=== PATIENT | female | born 1985 | race Caucasian/White ===

== ENCOUNTER → 2017-12-05 09:06 | Outpatient (CLI) | payer OTHER, SELFPAY ==
--- NOTE | 2017-12-05 09:09 | US_ITS ---
STUDY: ABDOMINAL ULTRASOUND - RIGHT UPPER QUADRANT REASON FOR VISIT: Female, 32 years old. Right upper quadrant pain. Nausea. TECHNIQUE: Ultrasound evaluation of the right upper quadrant was performed with real-time and static vega-scale imaging. TECHNICAL QUALITY: Adequate. COMPARISON: None. FINDINGS: Liver: The liver measures 12.6 cm. There is normal echogenicity of the liver. The bile ducts are within normal limits. There is hepatic color flow. The direction of portal flow is hepatopetal. There is no demonstrated mass lesion. Gallbladder: Normal distended gallbladder. The gallbladder wall measures 3.0 mm. There is a negative sonographic Rehman's sign. There is no pericholecystic fluid. There are no gallstones. Common Bile Duct (C.B.D.): The common bile duct measures 3.0 mm. Pancreas: Normal size of the head, body and tail of the pancreas. There is normal echogenicity of the pancreas. There is no demonstrated pancreatic mass or cyst. Right Kidney: Normal size of the right kidney. The right kidney measures 12.3 cm x 5.0 cm x 4.6 cm. Normal renal cortex. The right cortex measures 1.1 cm. There is no demonstrated renal mass or cyst. Mild dilatation of right renal pelvis. There is a 7 mm x 6 mm nonobstructive stone in the lower pole of the right kidney. US/Abdomen Limited IMPRESSION: Dilatation of the right renal pelvis. Nonobstructive right intrarenal renal calculus. Electronically Signed: Torsten Vergara MD at 10:52 EST Tel [phone], Service support ,
== END ==
PROVIDERS: Family Provider Family Medicine; PCP Family Medicine; Visit Provider Family Medicine
DX: K81.9 Cholecystitis, unspecified (principal)
CPT/HCPCS: 76705

== ENCOUNTER → 2017-12-09 15:58 | Outpatient (CLI) | payer OTHER, SELFPAY ==
--- NOTE | 2017-12-09 16:01 | RAD_ITS ---
STUDY: X-RAY - ABDOMEN/PELVIS REASON FOR EXAM: Female, 32 years old. Right-sided kidney stone follow-up TECHNIQUE: Two AP supine views of the abdomen and pelvis. COMPARISON: 11/19/2017 FINDINGS: Normal visualized lung bases. There is a moderate amount of colonic fecal material. There is no demonstrated free abdominal air. Stable appearance of a small calcific density in the lower pole right renal shadow. Normal soft tissue structures. Normal visualized osseous structures. RAD/Abdomen Single View IMPRESSION: Constipation. Unchanged small calcific density in the lower pole of the right renal shadow. Electronically Signed: John Paul Lopez DO at 16:40 EST Tel , Service support ,
== END ==
PROVIDERS: Family Provider Family Medicine; PCP Family Medicine; Visit Provider Urology
DX: N20.0 Calculus of kidney (principal)
CPT/HCPCS: 74018

== ENCOUNTER → 2017-12-24 16:42 | Outpatient (CLI) | payer OTHER, SELFPAY ==
--- NOTE | 2017-12-24 16:45 | CT_ITS ---
STUDY: CT ABDOMEN AND PELVIS WITHOUT CONTRAST REASON FOR EXAM: Female, 32 years old. Abdominal pain RADIATION DOSAGE (If Supplied By Facility): CTDIvol = ( 8.51 ) mGy, DLP = ( 416.93 ) mGycm TECHNIQUE: Transaxial images were obtained from the dome of the diaphragm to the symphysis pubis without oral contrast, and without intravenous contrast. Sagittal and coronal images were reconstructed. Individualized dose optimization techniques were used for this CT. COMPARISON: None. FINDINGS: The visualized lung bases are unremarkable. The visualized portions of the heart are within normal limits. Evaluation of the abdominal viscera is limited in the absence of intravenous contrast. Normal liver. Normal gallbladder and extrahepatic biliary system. Normal spleen. Normal pancreas. Normal bilateral adrenal glands. There is a 5 mm calculus within the inferior pole of the right kidney. Normal left kidney. Normal visualized stomach. Normal small intestine. Normal colon. The appendix is visualized and appears normal. Normal abdominal aorta. Normal inferior vena cava. Normal retroperitoneum. Normal urinary bladder. Normal visualized uterus. There is a small umbilical hernia containing fat. Normal osseous structures. CT/Abdomen/Pelvis without Cont IMPRESSION: Nonobstructing right renal calculus. No hydronephrosis. No bowel obstruction. Electronically Signed: Umang Resnediz DO at 15:23 EST Tel , Service support ,
== END ==
PROVIDERS: Family Provider Family Medicine; PCP Family Medicine; Visit Provider Urology
DX: N20.0 Calculus of kidney (principal)
CPT/HCPCS: 74176

== ENCOUNTER → 2018-01-01 15:36 | Outpatient (CLI) | payer OTHER, SELFPAY ==
[2018-01-01 18:37] LABS: Absolute Lymphocyte Count 2.67 X10^3/ul (0.83-4.51); Absolute Neutrophil Count 4.7 X10^3/uL (2.0-7.7); Basophil# 0.02 X10^3/uL; Basophil% 0.2 % (0-1); Eosinophil# 0.11 X10^3/uL; Eosinophils% 1.4 % (0-5); Hematocrit 39.8 % (37-47); Lymphocyte # 2.67 X10^3/ul (4.0); Mean Corp Hgb Conc 32.7 g/gl (32-36); Mean Corpuscular Hgb 28.8 pg (27.0-32.0); Mean Corpuscular Volume 88.1 fL (81-99); Mean Platelet Vol. 9.8 fl (6.2-12.0); Monocyte# 0.61 X10^3/uL; Monocyte% 7.5 % (0-10); Neutrophil # 4.68 X10^3/uL (2.7-7.7); Neutrophil % 57.8 % (47-70); POSITIVE COUNT NO; POSITIVE DIFFERENTIAL NO; POSITIVE MORPHOLOGY NO; Platelet Count 344 K/mm3 (150-450); RBC Distribution Width CV 13.5 % (11.6-14.6); RBC Distribution Width SD 43.6 fl (35.1-43.9); Red Blood Count 4.52 M/mm3 (4.2-5.4); White Blood Count 8.1 K/mm3 (4.4-11.0)
[2018-01-01 18:56] LABS: Erythrocyte Sedimentation Rate 16 mm/hr (0-20)
== END ==
PROVIDERS: Family Provider Family Medicine; PCP Family Medicine; Visit Provider Family Medicine
DX: M89.8X9 Other specified disorders of bone, unspecified site (principal); R53.83 Other fatigue; M25.50 Pain in unspecified joint
CPT/HCPCS: 36415; 85025; 85652; 86038; 86140; 86225; 86235

== ENCOUNTER 2018-01-06 11:24 | Emergency (ER) | payer OTHER, SELFPAY ==
[2018-01-06 11:25] VITALS: BP 145/92; PULSE 72; RESP 16; TEMP 36.8; O2SAT 97; BMI 25.9
--- NOTE | 2018-01-06 12:07 | EKG12_ITS ---
Test Reason : PALPS Blood Pressure : / mmHG Vent. Rate : 060 BPM Atrial Rate : 060 BPM P-R Int : 156 ms QRS Dur : 086 ms QT Int : 428 ms P-R-T Axes : 049 060 046 degrees QTc Int : 428 ms Normal sinus rhythm Normal ECG Confirmed by JM WEIR, CHA ([id number]), field map editor ANDERSON RIGGS ([id number]) on 01/09/2018 2:50:00 PM Referred By: Stella Bustamante Confirmed By:CHA ONEAL MD
--- NOTE | 2018-01-06 12:07 | RAD_ITS ---
STUDY: X-RAY CHEST REASON FOR EXAM: Female, 32 years old. Chest pressure. TECHNIQUE: Single AP portable view of the chest. COMPARISON: None. FINDINGS: EKG electrodes are seen. The lungs are clear and expanded. There is no demonstrated pleural abnormality. Normal size heart. Normal mediastinum and renzo. Normal visualized pulmonary arteries. Normal visualized aortic arch and descending thoracic aorta. Normal visualized thoracic spine. Normal visualized ribs, clavicles, and shoulders. There is no demonstrated abnormality of the visualized soft tissue structures of the upper abdomen. RAD/Chest 1 View (Portable) IMPRESSION: Normal x-ray examination of the chest. Electronically Signed: Torsten Vergara MD at 12:40 EST Tel [phone], Service support ,
[2018-01-06] MEDS: 0.9% Normal Saline 1,000 ML 150 ML IV (12:22)
[2018-01-06] MEDS: Aspirin 81 MG TAB.CHEW 324 MG PO (12:22)
[2018-01-06 12:23] VITALS: O2SAT 97
[2018-01-06 12:30] LABS: Absolute Lymphocyte Count 4.61 X10^3/ul (0.83-4.51); Absolute Neutrophil Count 4.1 X10^3/uL (2.0-7.7); Basophil# 0.02 X10^3/uL; Basophil% 0.2 % (0-1); Hematocrit 39.7 % (37-47); Hemoglobin 13.7 g/dl (12.0-15.0); Lymphocyte # 4.61 X10^3/ul (4.0); Lymphocyte % 47.1 % (19-41); Mean Corp Hgb Conc 34.5 g/gl (32-36); Mean Corpuscular Hgb 29.6 pg (27.0-32.0); Mean Corpuscular Volume 85.7 fL (81-99); Mean Platelet Vol. 9.3 fl (6.2-12.0); Monocyte# 0.98 X10^3/uL; Neutrophil # 4.05 X10^3/uL (2.7-7.7); Neutrophil % 41.4 % (47-70); Platelet Count 381 K/mm3 (150-450); RBC Distribution Width CV 13.4 % (11.6-14.6); RBC Distribution Width SD 41.6 fl (35.1-43.9); Red Blood Count 4.63 M/mm3 (4.2-5.4); White Blood Count 9.8 K/mm3 (4.4-11.0)
[2018-01-06 12:35] LABS: POSITIVE COUNT NO; POSITIVE DIFFERENTIAL NO; POSITIVE MORPHOLOGY NO
--- NOTE | 2018-01-06 12:49 | ED.VISSUMM ---
- ER Visit Summary Date of Service: 01/06/18 Chief Complaint: [] generalized fatigue weakness bradycardia, intermittent right upper quadrant pain History of Present Illness: The patient is a 32 F [] reports that today she was in a store where she suffered generalized fatigue causing her to basically placed herself on the floor, her heart rate at that time was about 99, she indicates that she recently had a heart rate was in the 40s. She also reports that for a month or 2 she has had symptoms of generalized fatigue body aches and prior outpatient workup with her physician showed no clear definitive diagnosis, she did have her ultrasound of the right upper quadrant that showed normal study, her right upper quadrant pain seems worse after she eats, she was referred for HIDA scan, but because she had an 8-month-old baby she is breast-feeding she did not obtain a HIDA scan but called the surgeon for an appointment has not had that appointment yet A single he reports she came in today because earlier today heart rate was in the 40s when she was in the store and she became weak heart rate was in the 90s and she had again a sudden onset of generalized whole body fatigue not having any chest pain fever cough abdominal pain and or paresthesias the pain to the right upper quadrant is chronic she has had normal bowel bladder habits no fever Has no history of [place] PE DVT arthritis kidney or liver problems her bowel bladder habits unremarkable she does not believe she is Physical Examination: [] Resting comfortably in the bed her blood pressure is 130/80 heart rate 80 she is afebrile HEENT exam neck exam normal lungs are clear heart tones are normal the abdomen soft nontender upper lower extremities unremarkable she is moving all 4 extremities her back is unremarkable she has no pain to her right upper quadrant now she denies chest pain or shortness of breath Test Results: [] Emergency Department Course and Treatment: [] Patient's been having intermittent paroxysms of fatigue with body pains and aches intermittent right upper quadrant pain we will obtain screening labs, discussed the case with her physicians Spoke with her physician discussed the case in detail her labs d-dimer EKG CT abdomen showed nothing acute thyroid studies were negative sinus rhythm heart rate about 70 throughout her stay here and I explained the case with her in detail and her , we have coordinated care with her family physician, follow-up with them for further management options rest and return for change in symptoms Treatment Plan: [] Disposition: [] Home stable Impression: [] Intermittent paroxysms of generalized fatigue etiology unclear few months, reported bradycardia and tachycardia This note was generated with VR1 dictation software. It may contain incorrect words, spelling, and punctuation that were not noted in review of the chart prior to signing ED Disposition - Plan for ED Patient: Chief Complaint: Palpitations Referrals: Stella Bustamante DO [Primary Care Provider] -
[2018-01-06 12:50] LABS: Anion Gap 10 (5-15); BUN 21 mg/dL (7-18); BUN/Creat Ratio 29.9 RATIO (10-20); Calcium,Total 9.4 mg/dL (8.5-10.1); Chloride 104 mmol/L (98-107); EST Glomerular Filtration Rate 102 mL/min (>60); Est Glom Filt Rate - Afr Amer 123 mL/min (>60); Estimated Creatinine Clearance 111.16 ml/min; Glucose 87 mg/dL (74-106); Potassium 3.1 mmol/L (3.5-5.1); Sodium Level 138 mmol/L (136-145)
--- NOTE | 2018-01-06 12:52 | ED.DCSUM_ITS ---
- ER Visit Summary Date of Service: 01/06/18 Chief Complaint: [] generalized fatigue weakness bradycardia, intermittent right upper quadrant pain History of Present Illness: The patient is a 32 F [] reports that today she was in a store where she suffered generalized fatigue causing her to basically placed herself on the floor, her heart rate at that time was about 99, she indicates that she recently had a heart rate was in the 40s. She also reports that for a month or 2 she has had symptoms of generalized fatigue body aches and prior outpatient workup with her physician showed no clear definitive diagnosis, she did have her ultrasound of the right upper quadrant that showed normal study, her right upper quadrant pain seems worse after she eats, she was referred for HIDA scan, but because she had an 8-month-old baby she is breast- feeding she did not obtain a HIDA scan but called the surgeon for an appointment has not had that appointment yet A single he reports she came in today because earlier today heart rate was in the 40s when she was in the store and she became weak heart rate was in the 90s and she had again a sudden onset of generalized whole body fatigue not having any chest pain fever cough abdominal pain and or paresthesias the pain to the right upper quadrant is chronic she has had normal bowel bladder habits no fever Has no history of [place] PE DVT arthritis kidney or liver problems her bowel bladder habits unremarkable she does not believe she is Physical Examination: [] Resting comfortably in the bed her blood pressure is 130/80 heart rate 80 she is afebrile HEENT exam neck exam normal lungs are clear heart tones are normal the abdomen soft nontender upper lower extremities unremarkable she is moving all 4 extremities her back is unremarkable she has no pain to her right upper quadrant now she denies chest pain or shortness of breath Test Results: [] Emergency Department Course and Treatment: [] Patient's been having intermittent paroxysms of fatigue with body pains and aches intermittent right upper quadrant pain we will obtain screening labs, discussed the case with her physicians Spoke with her physician discussed the case in detail her labs d-dimer EKG CT abdomen showed nothing acute thyroid studies were negative sinus rhythm heart rate about 70 throughout her stay here and I explained the case with her in detail and her , we have coordinated care with her family physician, follow-up with them for further management options rest and return for change in symptoms Treatment Plan: [] Disposition: [] Home stable Impression: [] Intermittent paroxysms of generalized fatigue etiology unclear few months, reported bradycardia and tachycardia This note was generated with Güven[employer] dictation software. It may contain incorrect words, spelling, and punctuation that were not noted in review of the chart prior to signing ED Disposition - Plan for ED Patient: Chief Complaint: Palpitations Referrals: Stella Bustamante DO [Primary Care Provider] -
[2018-01-06 13:02] LABS: AST(SGOT) 9 U/L (15-37); Alanine Aminotransfer ALT/SGPT 17 U/L (13-56); Albumin, Serum 3.9 g/dL (3.2-5.0); Alkaline Phosphatase 76 U/L (45-117); Bilirubin, Direct 0.09 mg/dL (0.00-0.30); Globulin 3.6 g/dL (2.2-4.2); Protein, Total 7.5 g/dL (6.4-8.2)
[2018-01-06 13:08] LABS: Pregnancy, Serum, hCG Quali. NEGATIVE Negative (0-9 Nonpreg)
[2018-01-06 13:09] LABS: Lipase 89 U/L (73-393); T4 Free Direct 1.24 ng/dL (0.76-1.46)
[2018-01-06 13:11] LABS: D-Dimer Quantitative (DVT/PE) < 0.27 FEU/ug/m (0.27-0.49)
[2018-01-06 13:30] VITALS: BP 119/66; PULSE 66; RESP 16; O2SAT 99
[2018-01-06 13:55] LABS: Mucous, Urine 0 SEEN /hpf (<or=2+); Red Blood Cells-Urine 0 SEEN /hpf (0-5); Squamous Epithelial Cells - UA 0 SEEN /hpf (5-10); White Blood Cells 0 SEEN /hpf (0-5)
[2018-01-06 14:01] LABS: Color, Urine Yellow (Yellow); Glucose, Dipstick Normal (Normal); Ketone-Dipstick Negative (Negative); Leukocyte Esterase-Dipstick Negative /ul (Negative); Nitrite-Dipstick Negative (Negative); Occult Blood-Urine 10 /ul (Negative); Protein-Dipstick Negative (Negative); Urine Bilirubin Dipstick Negative (Negative); Urine Clarity Clear (Clear); Urine Urobilinogen Normal (Normal)
[2018-01-06 14:08] LABS: Bacteria RARE /hpf (None Seen)
--- NOTE | 2018-01-06 14:10 | CT_ITS ---
STUDY: CT ABDOMEN AND PELVIS WITHOUT CONTRAST REASON FOR EXAM: Female, 32 years old. Right sided abdominal pain. Weakness and palpitations. RADIATION DOSAGE (If Supplied By Facility): CTDIvol = ( 8.88 ) mGy, DLP = ( 439.13 ) mGycm TECHNIQUE: Transaxial images were obtained from the dome of the diaphragm to the symphysis pubis without oral contrast, and without intravenous contrast. Sagittal and coronal images were reconstructed. Individualized dose optimization techniques were used for this CT. COMPARISON: Comparison is made with prior examination dated December 24, 2017. FINDINGS: The visualized lung bases are unremarkable. The visualized portions of the heart are within normal limits. Normal liver. Normal gallbladder and extrahepatic biliary system. Normal spleen. Normal pancreas. Normal bilateral adrenal glands. There is a 4.2 mm calculus in the lower pole calyx of the right kidney. This is unchanged. Normal left kidney. Normal visualized stomach. Normal small intestine. Normal colon. The appendix is visualized and appears normal. Normal abdominal aorta. Normal inferior vena cava. Normal retroperitoneum. Normal urinary bladder. There is a small umbilical hernia containing fat. Normal osseous structures. CT/Abdomen/Pelvis without Cont IMPRESSION: Stable nonobstructive right intrarenal calculus. Electronically Signed: Torsten Vergara MD at 14:49 EST Tel [phone], Service support ,
[2018-01-06 15:23] VITALS: BP 114/65; PULSE 64; RESP 14; O2SAT 97
--- NOTE | 2018-01-06 16:17 | ED.DEP ---
ED Disposition - Plan for ED Patient: Chief Complaint: Palpitations Instructions: ED Palpitations, ED Weakness [facility] Referrals: Stella Bustamante DO [Primary Care Provider] -
[2018-01-06 16:29] VITALS: BP 108/57; PULSE 80; RESP 17; O2SAT 95
== END 2018-01-06 16:30 | disposition home or self-care (01) ==
PROVIDERS: Emergency Provider Emergency Medicine; Family Provider Family Medicine; PCP Family Medicine
DX: R53.83 Other fatigue (principal); R00.1 Bradycardia, unspecified; R00.0 Tachycardia, unspecified; R00.2 Palpitations; R10.11 Right upper quadrant pain; G89.29 Other chronic pain; M79.1 Myalgia
CPT/HCPCS: 71045; 74176; 80048; 80076; 81001; 83690; 84436; 84439; 84443; 84484; 84703; 85025; 85379; 93005; 96360; 96361; 99284; J7030; A4216

== ENCOUNTER → 2018-01-13 16:14 | Outpatient (CLI) | payer OTHER, SELFPAY ==
[2018-01-16 16:11] LABS: Anti-Centromere B Ab <0.2 AI (0.0-0.9); Anti-Chromatin <0.2 AI (0.0-0.9); Anti-Jo <0.2 AI (0.0-0.9); Anti-Scleroderma-70 AB <0.2 AI (0.0-0.9); RNP Ab <0.2 AI (0.0-0.9); SJOGREN'S Anti-SS-A test 0.3 AI (0.0-0.9); SJOGREN'S Anti-SS-B test < 0.2 AI (0.0-0.9); Smith Ab <0.2 AI (0.0-0.9)
[2018-01-18 06:17] LABS: Anti-dsDNA Ab <1 IU/mL (0-9)
== END ==
PROVIDERS: Family Provider Family Medicine; PCP Family Medicine; Visit Provider Family Medicine
DX: M79.1 Myalgia (principal); M25.50 Pain in unspecified joint; R76.8 Other specified abnormal immunological findings in serum
CPT/HCPCS: 36415; 86225; 86235

== ENCOUNTER → 2018-01-19 11:15 | Outpatient (CLI) | payer OTHER, SELFPAY ==
--- NOTE | 2018-01-19 11:18 | NM_ITS ---
CLINICAL: 32-year-old female with reported history of right upper quadrant abdominal pain. RADIONUCLIDE HEPATOBILIARY SCINTIGRAPHY COMPARISON: CT of the abdomen-pelvis report 01/06/2018 FINDINGS: Following the intravenous administration of 5.7 mCi of 99m Tc Mebrofenin, hepatobiliary images reveal: 1. Relatively prompt and homogeneous radiopharmaceutical concentration is noted by a normal sized liver. No parenchymal defects are identified. 2. Gallbladder activity is identified at 10 minutes post radiopharmaceutical administration. 3. Small intestinal tract is observed at 15 minutes following tracer injection. 4. Washout of the radiopharmaceutical by the hepatic parenchyma appears qualitatively normal. The patient was administered a fatty meal (8 ounces BOOST-30 grams fat). The post fatty meal consumption gallbladder ejection fraction calculated at 60 minutes was noted to be 34.0 % (normal greater than 30%). NM/Hepatobilliary Imaging IMPRESSION: 1. NORMAL 99m Tc Mebrofenin hepatobiliary imaging examination with fatty meal ingestion. A. A gallbladder ejection fraction calculated to be greater than 30% following the administration of a consumed fatty meal makes the probability of functional hepatobiliary disease (gallbladder and/or sphincter of Oddi dyskinesia) and/or organic hepatobiliary disease (chronic acalculous cholecystitis and/or cystic duct syndrome) to be low. ([employer] and [employer], J Nucl Med 43: 1603, 2002). Electronically Signed: Marko Broussard DO at 12:16 EDT Tel , Service support ,
== END ==
PROVIDERS: Family Provider Family Medicine; PCP Family Medicine; Visit Provider Family Medicine
DX: K81.9 Cholecystitis, unspecified (principal); R00.2 Palpitations
CPT/HCPCS: 78226; 78227; 93225; 93226; A9537

== ENCOUNTER → 2018-02-16 14:59 | Outpatient (CLI) | payer OTHER, SELFPAY ==
[2018-02-16 15:10] LABS: Bacteria 0 SEEN /hpf (None Seen); Mucous, Urine 0 SEEN /hpf (<or=2+)
[2018-02-16 17:09] LABS: Color, Urine Yellow (Yellow); Glucose, Dipstick Normal (Normal); Ketone-Dipstick 50 mg/dl (Negative); Leukocyte Esterase-Dipstick 25 /ul (Negative); Nitrite-Dipstick Negative (Negative); Occult Blood-Urine 25 /ul (Negative); Protein-Dipstick Negative (Negative); Specific Gravity, Urine 1.015 (1.002-1.030); Urine Bilirubin Dipstick Negative (Negative); Urine Clarity Clear (Clear); Urine Urobilinogen Normal (Normal)
[2018-02-16 17:48] LABS: Red Blood Cells-Urine 0-5 SEEN /hpf (0-5); Squamous Epithelial Cells - UA 5-10 SEEN /hpf (5-10); White Blood Cells 0-5 SEEN /hpf (0-5)
== END ==
PROVIDERS: Family Provider Family Medicine; PCP Family Medicine; Visit Provider Surgery
DX: R10.9 Unspecified abdominal pain (principal)
CPT/HCPCS: 81001

== ENCOUNTER → 2018-02-17 16:56 | Outpatient (CLI) | payer OTHER, SELFPAY ==
--- NOTE | 2018-02-17 17:02 | RAD_ITS ---
STUDY: X-RAY - ABDOMEN/PELVIS REASON FOR EXAM: Female, 33 years old. Pain. Right renal stone. TECHNIQUE: Two AP supine views of the abdomen and pelvis. COMPARISON: CT January 06, 2018 FINDINGS: Normal visualized lung bases. There is an unremarkable bowel gas pattern. There is no demonstrated free abdominal air. There is increased density at the right lower kidney with stone versus artifact from stool contents . Normal soft tissue structures. Normal visualized osseous structures. RAD/Abdomen Single View IMPRESSION: Right abdominal calcification. Electronically Signed: Alejandro Devries MD at 16:58 EDT , Service support ,
== END ==
PROVIDERS: Family Provider Family Medicine; PCP Family Medicine; Visit Provider Nurse Practitioner Adult Health
DX: N20.0 Calculus of kidney (principal)
CPT/HCPCS: 74018

== ENCOUNTER 2018-02-20 05:43 | Day surgery (SDC) | payer OTHER, SELFPAY ==
[2018-02-20] VITALS (10 sets, daily range): BP systolic 80–111; BP diastolic 40–86; PULSE 69–104; RESP 16–18; TEMP 36.2–36.6; O2SAT 94–100
--- NOTE | 2018-02-20 | IMM_PTH ---
PATIENT: DELLA HERMAN LOC: EN U#:[id number] AGE/SX: 33/F ROOM: RE02/20/[address]: Dr. Dereje Fuller MD : 1985 BED: DIS: 02/20/2018 SPEC #: [id number] RECD: 02/23/18 11:26 STATUS: SURY LIAM #: [id number] DARIUSZ: 02/20/18 00:[address]: Dereje Fuller DEPT: IMMUNOHISTOCHEMISTRY RECD BY: Tarsha Bunn ENTERED: 02/23/18 11:27 SP TYPE: IMMUNO OTHR DR: Dr. Stella Bustamante DO Tissues: B - Stomach, NOS Procedures: H Pylori (initial) PHYSICIAN & INSTITUTION [place] [id number] SPECIMEN INFORMATION: Tissue Source: B ? Antrum biopsy Clinical Info: Right increased abdomen pain, biliary dyskinesia Specimen Number: [id number] CPT code: 03864 METHODOLOGY: Deparaffinized sections of prefer/formalin-fixed tissue or PAP/DQ stained slides are incubated with monoclonal/polyclonal antibodies/oligonucleotide probes. Localization is made via biotin free immunoperoxidase method. Appropriate controls are performed and reacted as expected. Results on target cell population are indicated in the following table: RESULTS: ANTIBODY / CLONE RESULT Block B H Pylori (polyclonal) negative These tests were developed and their performance characteristics determined by [facility]. They may not have been cleared or approved by the U.S. Food and Drug Administration. The FDA has determined that such clearance or approval is not necessary. INTERPRETATION: B. Antrum, biopsy: Negative for Helicobacter pylori organisms. AM:enrique 02/24/18
--- NOTE | 2018-02-20 06:40 | EGD_PTH ---
PATIENT: DELLA HERMAN LOC: EN U#:[id number] AGE/SX: 33/F ROOM: RE02/20/[address]: Dr. Dereje Fuller MD : 1985 BED: DIS: 02/20/2018 SPEC #: [id number] RECD: 02/20/18 14:31 STATUS: SURY LIAM #: [id number] DARIUSZ: 02/20/18 06:[address]: Dereje Fuller DEPT: SURGICAL PATHOLOGY RECD BY: Giovanny Boo ENTERED: 02/20/18 14:31 SP TYPE: EGD BIOPSY IMANI DR: Dr. Stella Bustamante DO Tissues: A - Duodenum, NOS B - Gastric mucous membrane C - Esophageal mucous membrane Procedures: Surgery Specimen Level IV HEADER OPERATION: EGD PRE-OP DIAGNOSIS: Right increased abdomen pain, biliary dyskinesia TISSUE SUBMITTED: A ? Duodenum biopsy, B ? Antrum biopsy for H. pylori and path, C ? Distal esophagus biopsy MICROSCOPIC DIAGNOSIS A. Duodenum, biopsy: No significant pathologic change. B. Gastric antrum, biopsy: Mild chronic gastritis. C. Distal esophagus, biopsy: Consistent with reflux esophagitis. Gastroesophageal junctional mucosa with mild to moderate chronic inflammation. AM:enrique 02/23/18 COMMENT The results of immunohistochemistry for Helicobacter pylori will be reported separately ([id number]). MICROSCOPIC DESCRIPTION Slides are reviewed. GROSS DESCRIPTION A - Received in fixative is one container labeled with the patient's name and designated duodenum biopsy. The specimen consists of one irregular fragment of light [place] soft tissue that measures 0.7 x 0.2 x 0.1 cm. The specimen is totally submitted in one cassette. B - Received in fixative is one container labeled with the patient's name and designated antrum biopsy. The specimen consists of one irregular fragment of light [place] soft tissue that measures 0.3 x 0.3 x 0.1 cm. The specimen is totally submitted in one cassette. C - Received in fixative is one container labeled with the patient's name and designated distal esophagus biopsy. The specimen consists of multiple irregular fragments of light [place] soft tissue that in aggregate measure 1 x 0.5 x 0.1 cm. The specimen is totally submitted in one cassette. / NGOC:enrique 02/20/18 TC:3 CPT: 28806 x3
--- NOTE | 2018-02-20 06:45 | PCM.OPRPT ---
Problem List (1) Abdominal pain Status: Acute Qualifiers: Abdominal location: epigastric Qualified Code(s): R10.13 - Epigastric pain Report of Operation Date of Procedure: 02/20/18 Pre-Operative Diagnosis: Right upper quadrant pain Post-Operative Diagnosis: Very small hiatal hernia, minimal antral erythema Surgery/Procedure Performed:: Esophagogastroduodenoscopy with duodenal and antral and distal esophageal biopsies with cold forceps Description of Surgical Findings:: Timeout and informed consent was obtained. 33-year-old female was taken to the endoscopy suite. Her oropharynx was anesthetized Cetacaine. She was placed in a left lateral decubitus position throughout. Throughout the procedure she received total 100 mg Demerol and 3.5 mg of Versed is intravenous sedation. Videogastroscope was inserted into the esophageal inlet. Proximal mid distal esophagus inspected unremarkable. EG junction was at 40 cm. Very small hiatal hernia noted. No evidence for overt esophageal irritation. The scope was advanced in the stomach where there was very minimal erythema of the antrum. The scope was advanced through the pylorus and the first and second portions of the duodenum were inspected. This appeared to be normal. There was bile within the duodenum. I did not see any bile within the stomach. A duodenal biopsy was obtained of the bulb. Scope was withdrawn to the antrum and an antral biopsy was obtained. The scope was retroflexed the cardia inspected the main body of the stomach inspected. This appeared to be unremarkable. Scope was placed back in antegrade viewing position and the greater and lesser curvatures were inspected. Excess fluid and air was aspirated free. The scope was withdrawn to the distal esophagus. Distal esophageal biopsy was obtained. Excess fluid and air was aspirated free the procedure was completed with the patient tolerating it well. Impression Very small minimal hiatal hernia. Minimal erythema of the antrum. Duodenal and antral and distal esophageal biopsies pending. The current examination does not correlate with the patient's complaint of right upper quadrant pain. She will be notified of pathology as a become available but at this time we plan to proceed with the laparoscopic cholecystectomy with tentative diagnosis biliary dyskinesia. Cc: Dr. Stella Bustamante Meds were given at 0634. The procedure was started 0637. Procedure was completed at 0642. Dereje Fuller M.D., F.A.C.S. Type of Anesthesia:: IV Sedation
== END 2018-02-20 07:55 | disposition home or self-care (01) ==
LOC: EN 05:43 → ACINP 05:45
PROVIDERS: Family Provider Family Medicine; PCP Family Medicine; Visit Provider Surgery
PROC: (CPT 43239; principal; 2018-02-20 06:25)
DX: K29.70 Gastritis, unspecified, without bleeding (principal); K20.9 Esophagitis, unspecified; K44.9 Diaphragmatic hernia without obstruction or gangrene; K82.8 Other specified diseases of gallbladder; Z87.442 Personal history of urinary calculi
CPT/HCPCS: 43239; 88305; 88342; J7120

== ENCOUNTER → 2018-02-20 14:15 | Outpatient (CLI) | payer OTHER, SELFPAY ==
[2018-02-20 14:17] LABS: Bacteria 0 SEEN /hpf (None Seen); Mucous, Urine 0 SEEN /hpf (<or=2+); Red Blood Cells-Urine 0 SEEN /hpf (0-5); Squamous Epithelial Cells - UA 0 SEEN /hpf (5-10)
[2018-02-20 14:35] LABS: Color, Urine Yellow (Yellow); Glucose, Dipstick Normal (Normal); Ketone-Dipstick 5 mg/dl (Negative); Leukocyte Esterase-Dipstick 100 /ul (Negative); Nitrite-Dipstick Negative (Negative); Occult Blood-Urine Negative /ul (Negative); Protein-Dipstick Negative (Negative); Specific Gravity, Urine 1.005 (1.002-1.030); Urine Bilirubin Dipstick Negative (Negative); Urine Clarity Clear (Clear); Urine Urobilinogen Normal (Normal)
[2018-02-20 14:57] LABS: White Blood Cells 0-5 SEEN /hpf (0-5)
== END ==
PROVIDERS: Family Provider Family Medicine; PCP Family Medicine; Visit Provider Physician Assistant
DX: N39.0 Urinary tract infection, site not specified (principal)
CPT/HCPCS: 81001; 87086

== ENCOUNTER 2018-02-25 05:33 | Day surgery (SDC) | payer OTHER, SELFPAY ==
[2018-02-25] VITALS (14 sets, daily range): BP systolic 116–134; BP diastolic 65–81; PULSE 72–95; RESP 16–75; TEMP 36.2–37.4; O2SAT 93–100; BMI 25.8
[2018-02-25 05:50] LABS: Internal QC Validated? YES +Cl - CLEAR BKGD; Pregnancy, Urine Negative Negative
[2018-02-25] MEDS: Cefazolin 2 GM in 0.9% Normal Saline 100 ML IV (07:13)
--- NOTE | 2018-02-25 07:15 | GALL_PTH ---
PATIENT: DELLA HERMAN LOC: [facility] U#:[id number] AGE/SX: 33/F ROOM: RE02/25/[address]: Dr. Dereje Fuller MD : 1985 BED: DIS: 02/25/2018 SPEC #: [id number] RECD: 02/25/18 11:48 STATUS: SURY LIAM #: [id number] DARIUSZ: 02/25/18 07:[address]: Dereje Fuller DEPT: SURGICAL PATHOLOGY RECD BY: Tracie Brennan ENTERED: 02/25/18 12:47 SP TYPE: DORIAN DIALLO DR: Dr. Stella Bustamante DO Tissues: Gallbladder, NOS Procedures: Surgery Specimen Level III HEADER OPERATION: Laparoscopic cholecystectomy with intraoperative cholangiogram PRE-OP DIAGNOSIS: Biliary dyskinesia, right upper quadrant abdominal pain TISSUE SUBMITTED: Gallbladder MICROSCOPIC DIAGNOSIS Gallbladder, cholecystectomy: Mild chronic cholecystitis. AM:enrique 02/26/18 MICROSCOPIC DESCRIPTION Slides are reviewed. GROSS DESCRIPTION Received is one container labeled with the patient's name and designated gallbladder. The specimen consists of a gallbladder measuring 8.5 x 2.6 x 2.5 cm. The external surface is smooth and glistening. Focally, it is granular, hemorrhagic and contains cautery artifact. The lumen of the gallbladder contains a moderate amount of greenish-yellow bile. No calculi are identified either in the lumen of the gallbladder or the specimen container. The gallbladder mucosa is bile-stained and free of mass lesions. The gallbladder wall averages 0.1 cm in thickness. Donor Services Manager sections of the gallbladder and the cystic duct are submitted in one cassette. / AM:enrique 02/25/18 TC:3 [facility]: [id number]
--- NOTE | 2018-02-25 07:20 | RAD_ITS ---
CLINICAL HISTORY: Female, 33 years old. Abdomen pain. Comment: Fluoroscopy services provided for clinical procedure. Please refer to operating physician's procedure note for additional detail. PROCEDURE: CHOLANGIOGRAM - Fluoroscopy services provided for clinical procedure. Please refer to operating physician's procedure note for additional detail. FLUOROSCOPY TIME (if supplied): (Not provided) minutes/seconds TECHNIQUE: 33, intraprocedural fluoroscopic spot images of the right upper quadrant. FINDINGS: Opacified intrahepatic and extra hepatic bile ducts appear unremarkable. Specifically, there is no evident filling defect. There is no significant incidental finding. There is no extrabiliary contrast. RAD/Cholangiogram/ O R,Initial IMPRESSION: Unremarkable appearing opacified intrahepatic and extra hepatic bile ducts. No extrabiliary contrast. No significant incidental finding. Comment: Fluoroscopy services provided for clinical procedure. Please refer to operating physician's procedure note for additional detail. Electronically Signed: Harris Haynes MD at 8:47 EDT , Service support ,
--- NOTE | 2018-02-25 07:27 | DCINST_ITS ---
Discharge Diet: Light diet - advance as tolerated - if you have questions about your diet instructions, please talk to you doctor. Discharge Activity: May Not Drive - for 1 week or while taking narcotic pain medicine. May shower in (days): 1 Lifting Restrictions: 10 pounds Call your doctor if your incision/area has: Continuous Slow Oozing, Sudden Increased Bleeding, Increased Pain/ Swelling, Increased Redness, Foul Smelling Discharge Call your doctor if you observe: Fever of 101 or Higher Suture Line Care: Avoid Pulling/Pushing, Avoid Pinching/Bending Additional Dressing/Incision Instructions:: Change or remove dressing in 4 days. Leave steri-strips in place for 1 week. Allergies/Adverse Reactions: Allergies No Known Allergies Allergy (Verified 02/19/18 10:17) Medications to take at Discharge multivitamin tablet 1 tab PO QDAY 02/16/18 ciprofloxacin 500 mg tablet 500 mg PO BID #14 tab 02/19/18 Hydrocodone Bitart/Apap 5-325 [[place] 5MG-325MG] 1 tablet PO Q6H PRN PRN 3 Days # 10 tablet 02/25/18 The following prescriptions were given: Hydrocodone Bitart/Apap 5-325 [[place] 5MG-325MG] 1 tablet PO Q6H PRN PRN 3 Days # 10 tablet PRN Reason: Pain Primary Care Physician: Stella Bustamante DO [Primary Care Provider] - Please Follow Up With: Dereje Fuller MD - [phone] When: Call to make an appointment to be seen in about 10 days.
[2018-02-25] MEDS: Bupivacaine Mpf 0.5% 30 ML VIAL (07:36)
--- NOTE | 2018-02-25 08:27 | OP.PCM_ITS ---
Problem List (1) Biliary dyskinesia Status: Acute (2) Umbilical hernia without obstruction or gangrene Status: Acute Report of Operation Date of Procedure: 02/25/18 Pre-Operative Diagnosis: Biliary dyskinesia Post-Operative Diagnosis: Biliary dyskinesia. Umbilical hernia Surgery/Procedure Performed:: Laparoscopic cholecystectomy with cholangiography. Umbilical herniorrhaphy Description of Surgical Findings:: Timeout and informed consent was obtained. 33-year-old female was taken out from placement table underwent general endotracheal intubation anesthesia. Ancef 2 g given intravenously preoperatively. The abdomen was sterilely prepped and draped. 0.5% Marcaine was used as local anesthetic. Throughout the procedure total 30 cc was used. Skin sites were pre-anesthetized. A vertical incision was made at the umbilicus and so doing an umbilical hernia was encountered with some preperitoneal fatty tissue and eye. This is dissected free. Then holding sutures of 0 Vicryl placed direct access was gained to the peritoneum a 12 m trocar was inserted the absence freed CO2 to pressure of 10 mmHg pressure. Five-minute trochars are placed the epigastric right upper quadrant and right upper abdomen area. Abdomen is rapidly inspected no evidence any superficial abnormalities the gallbladder grossly appeared to be unremarkable gallbladder was distracted blunt dissection with a instituted the infundibulum until clearly the cystic artery and cystic duct were identified the hepatocystic angle was completely dissected free 2 Hem-o- roshan clips were placed proximally on the cystic artery and one distally prior to transecting it Hem-o-roshan clip was placed on the cystic duct incision in the cystic duct cholangiogram catheter was inserted. A valve of Heister prevented advancement and so a grasper was used to hold it in position. Fluoroscopically controlled claims grams were obtained demonstrating normal ductal anatomy and free flow into the small bowel. The cholangiogram catheter was removed 2 Hem-o-roshan clips were placed on the cystic duct prior to transecting it. There was a posterior cystic artery that was secured with a Hem-o-roshan clip. The gallbladder was then dissected free from the liver bed using electrocautery. Complete hemostasis was intact. Gallbladder was placed in retrieval bag the right upper quadrant was irrigated and aspirated free of excess fluid. The gallbladder was exited the umbilicus remaining trochars removed under visualization. The abdomen was allowed to deflate of CO2. The fascia at the umbilicus for the hernia was approximated with an interrupted 0 Nurolon [id number] suture. Skin edges approximated with interrupted 4 Monocryl subdermal stitches. Steri-Strips Telfa and OpSite dressings applied. Sponge instrument and needle counts were reported to the surgeon to be correct. Blood loss was minimal. Specimens gallbladder. Drains none. Blood loss minimal. Dereje Fuller M.D., F.A.C.S. Type of Anesthesia:: General Anesthesiologist: Park Jain
[2018-02-25] MEDS: HYDROcodone Bitartrate/Apap 5/325 Tablet PO (11:26)
== END 2018-02-25 14:50 | disposition home or self-care (01) ==
LOC: SDC 05:34 → AC 05:35
PROVIDERS: Family Provider Family Medicine; PCP Family Medicine; Visit Provider Surgery
PROC: (CPT 47610; principal; 2018-02-25 06:55)
DX: K81.1 Chronic cholecystitis (principal); K42.9 Umbilical hernia without obstruction or gangrene; E03.9 Hypothyroidism, unspecified; Z87.442 Personal history of urinary calculi
CPT/HCPCS: 00790; 47563; 49652; 74300; 76000; 81025; 88304; J7120; J2405

== ENCOUNTER → 2018-03-05 09:54 | Outpatient (CLI) | payer OTHER, SELFPAY ==
[2018-03-05 12:10] LABS: Absolute Lymphocyte Count 1.89 X10^3/ul (0.83-4.51); Absolute Neutrophil Count 3.1 X10^3/uL (2.0-7.7); Basophil# 0.03 X10^3/uL; Basophil% 0.5 % (0-1); Eosinophil# 0.27 X10^3/uL; Eosinophils% 4.7 % (0-5); Lymphocyte # 1.89 X10^3/ul (4.0); Mean Corp Hgb Conc 32.5 g/gl (32-36); Mean Corpuscular Volume 89.1 fL (81-99); Mean Platelet Vol. 9.4 fl (6.2-12.0); Monocyte# 0.44 X10^3/uL; Monocyte% 7.7 % (0-10); Neutrophil % 54.1 % (47-70); POSITIVE COUNT NO; POSITIVE DIFFERENTIAL NO; POSITIVE MORPHOLOGY NO; Platelet Count 383 K/mm3 (150-450); RBC Distribution Width CV 13.5 % (11.6-14.6); RBC Distribution Width SD 44.3 fl (35.1-43.9); Red Blood Count 4.49 M/mm3 (4.2-5.4); White Blood Count 5.7 K/mm3 (4.4-11.0)
[2018-03-05 12:39] LABS: AST(SGOT) 10 U/L (15-37); Alanine Aminotransfer ALT/SGPT 23 U/L (13-56); Albumin, Serum 3.8 g/dL (3.2-5.0); Alkaline Phosphatase 74 U/L (45-117); Anion Gap 7 (5-15); BUN 10 mg/dL (7-18); BUN/Creat Ratio 15.4 RATIO (10-20); CRP 4.34 mg/L (0.0-3.0); Calcium,Total 9.1 mg/dL (8.5-10.1); Chloride 105 mmol/L (98-107); Creatinine, Serum 0.65 mg/dL (0.55-1.02); EST Glomerular Filtration Rate 111 mL/min (>60); Est Glom Filt Rate - Afr Amer 134 mL/min (>60); Globulin 3.9 g/dL (2.2-4.2); Glucose 73 mg/dL (74-106); Potassium 3.8 mmol/L (3.5-5.1); Protein, Total 7.7 g/dL (6.4-8.2); Sodium Level 140 mmol/L (136-145); Thyroid Stim Hormone (TSH) 2.11 uIU/mL (0.358-3.74)
[2018-03-06 20:07] LABS: Endomysial Antibody IgA Negative (Negative)
[2018-03-07 11:11] LABS: Immunoglobulin A 112 mg/dL (87-352); t-Transglutaminase IgA <2 U/mL (0-3)
== END ==
PROVIDERS: Family Provider Family Medicine; PCP Family Medicine; Visit Provider Family Medicine
DX: E03.9 Hypothyroidism, unspecified (principal); R53.1 Weakness; F41.9 Anxiety disorder, unspecified
CPT/HCPCS: 36415; 80053; 82784; 83516; 84443; 85025; 86140; 86255

== ENCOUNTER → 2018-03-19 17:34 | Outpatient (CLI) | payer OTHER, SELFPAY ==
[2018-03-19 18:20] LABS: Color, Urine Yellow (Yellow); Glucose, Dipstick Normal (Normal); Ketone-Dipstick 50 mg/dl (Negative); Leukocyte Esterase-Dipstick 25 /ul (Negative); Nitrite-Dipstick Negative (Negative); Occult Blood-Urine 10 /ul (Negative); Protein-Dipstick Negative (Negative); Specific Gravity, Urine 1.025 (1.002-1.030); Urine Bilirubin Dipstick Negative (Negative); Urine Clarity Sl. Cloudy (Clear); Urine Urobilinogen Normal (Normal)
[2018-03-19 18:30] LABS: Mucous, Urine 1+ /hpf (<or=2+); Squamous Epithelial Cells - UA 0-5 SEEN /hpf (5-10)
[2018-03-19 18:32] LABS: Red Blood Cells-Urine 0-5 SEEN /hpf (0-5)
[2018-03-19 18:34] LABS: White Blood Cells 5-10 SEEN /hpf (0-5)
[2018-03-19 18:35] LABS: Bacteria RARE /hpf (None Seen)
[2018-03-19 19:40] LABS: ALB/GLOB Ratio 1.1 RATIO (0.9-2.4); AST(SGOT) 11 U/L (15-37); Alanine Aminotransfer ALT/SGPT 17 U/L (13-56); Albumin, Serum 4.1 g/dL (3.2-5.0); Alkaline Phosphatase 72 U/L (45-117); Anion Gap 11 (5-15); BUN 13 mg/dL (7-18); BUN/Creat Ratio 21.8 RATIO (10-20); Calcium,Total 9.1 mg/dL (8.5-10.1); Chloride 104 mmol/L (98-107); EST Glomerular Filtration Rate 122 mL/min (>60); Est Glom Filt Rate - Afr Amer 148 mL/min (>60); Globulin 3.6 g/dL (2.2-4.2); Glucose 79 mg/dL (74-106); Potassium 3.4 mmol/L (3.5-5.1); Protein, Total 7.7 g/dL (6.4-8.2); Sodium Level 139 mmol/L (136-145)
[2018-03-19 21:13] LABS: Osmolality, Urine 690 mOsm/KG
[2018-03-19 21:20] LABS: Osmolality, Serum 286 mOsm/KG (275-295)
== END ==
PROVIDERS: Family Provider Family Medicine; PCP Family Medicine; Visit Provider Nurse Practitioner Adult Health
DX: R35.8 Other polyuria (principal)
CPT/HCPCS: 36415; 80053; 81001; 83930; 83935

== ENCOUNTER → 2018-04-01 09:11 | Outpatient (CLI) | payer OTHER, SELFPAY ==
--- NOTE | 2018-04-01 09:14 | RAD_ITS ---
STUDY: X-RAY - LUMBAR SPINE REASON FOR EXAM: Female, 33 years old. Brain TECHNIQUE: 5 view(s) of the lumbar spine were obtained. COMPARISON: None FINDINGS: Normal lumbar lordosis. There is no substantial scoliosis. There is a normal alignment of the vertebrae. Normal vertebral bodies and endplates. Normal disc space heights. The soft tissue structures are unremarkable. RAD/L/S Spine Min 4 Views IMPRESSION: Normal x-ray examination of the lumbar spine. Electronically Signed: Neil Fowler DO at 21:41 EDT , Service support ,
== END ==
PROVIDERS: Family Provider Family Medicine; PCP Family Medicine; Visit Provider Family Medicine
DX: M54.5 Low back pain (principal)
CPT/HCPCS: 72110

== ENCOUNTER → 2018-04-01 13:43 | Outpatient (CLI) | payer OTHER, SELFPAY ==
[2018-04-03 10:23] LABS: Bacteria 0 SEEN /hpf (None Seen); Mucous, Urine 0 SEEN /hpf (<or=2+)
[2018-04-03 12:44] LABS: Anion Gap 9 (5-15); BUN 14 mg/dL (7-18); BUN/Creat Ratio 20.9 RATIO (10-20); Calcium,Total 8.7 mg/dL (8.5-10.1); Chloride 102 mmol/L (98-107); Creatinine, Serum 0.67 mg/dL (0.55-1.02); EST Glomerular Filtration Rate 107 mL/min (>60); Est Glom Filt Rate - Afr Amer 130 mL/min (>60); Glucose 78 mg/dL (74-106); Potassium 3.7 mmol/L (3.5-5.1); Sodium Level 138 mmol/L (136-145)
[2018-04-03 13:18] LABS: Color, Urine Yellow (Yellow); Glucose, Dipstick Normal (Normal); Ketone-Dipstick Negative (Negative); Leukocyte Esterase-Dipstick 25 /ul (Negative); Nitrite-Dipstick Negative (Negative); Occult Blood-Urine 25 /ul (Negative); Protein-Dipstick Negative (Negative); Urine Bilirubin Dipstick Negative (Negative); Urine Clarity Clear (Clear); Urine Urobilinogen Normal (Normal)
[2018-04-03 13:34] LABS: Squamous Epithelial Cells - UA 0-5 SEEN /hpf (5-10)
[2018-04-03 13:35] LABS: Red Blood Cells-Urine 0-5 SEEN /hpf (0-5)
[2018-04-03 13:36] LABS: White Blood Cells 0-5 SEEN /hpf (0-5)
[2018-04-03 14:19] LABS: Osmolality, Serum 284 mOsm/KG (275-295); Osmolality, Urine 417 mOsm/KG
[2018-04-16 10:00] LABS: Thyroid Peroxidase AB 9 IU/mL (0-34)
[2018-04-16 12:21] LABS: Aldosterone, Serum 29.7 ng/dL (0.0-30.0); Renin, Plasma 0.961 ng/mL/hr (0.167-5.380); Thyroglobulin Antibody < 1.0 IU/mL (0.0-0.9)
== END ==
PROVIDERS: Family Provider Family Medicine; PCP Family Medicine; Visit Provider Family Medicine
DX: R35.8 Other polyuria (principal); E03.9 Hypothyroidism, unspecified; E87.6 Hypokalemia
CPT/HCPCS: 36415; 80048; 81001; 81050; 82088; 83930; 83935; 84244; 86376; 86800; 87086

== ENCOUNTER → 2018-04-03 13:44 | Outpatient (CLI) | payer OTHER, SELFPAY | PROVIDERS: Visit Provider Family Medicine | DX: R35.8 Other polyuria (principal); E03.9 Hypothyroidism, unspecified; E87.6 Hypokalemia | CPT/HCPCS: 81050 ==

== ENCOUNTER → 2018-08-10 17:02 | Outpatient (CLI) | payer OTHER, SELFPAY ==
--- NOTE | 2018-08-10 17:05 | RAD_ITS ---
STUDY: X-RAY - ABDOMEN/PELVIS REASON FOR EXAM: Female, 33 years old. Right sided pain TECHNIQUE: 2 views COMPARISON: February 17, 2018 FINDINGS: There is a 6 mm calcific density projecting over the lower third of the right kidney. No similar findings on the left side. The bones and joints are normal. There is no bowel distention or free intraperitoneal air.. A rectangular area of low density is seen in the lower pelvis. It is slightly tilted to the right and most likely represents a tampon. RAD/Abdomen Single View IMPRESSION: A 6 mm calyceal calculus in the inferior pole of the right kidney. No intestinal obstruction. Electronically Signed: Nazario Herrera MD at 4:18 EDT Tel , Service support ,
== END ==
PROVIDERS: Family Provider Internal Medicine; PCP Internal Medicine; Referring Provider Urology; Visit Provider Urology
DX: N20.0 Calculus of kidney (principal)
CPT/HCPCS: 74018

== ENCOUNTER 2018-08-26 07:01 | Day surgery (SDC) | payer OTHER, SELFPAY ==
[2018-08-26] VITALS (7 sets, daily range): BP systolic 106–123; BP diastolic 61–76; PULSE 58–79; RESP 16; TEMP 37.3–37.7; O2SAT 99–100; BMI 25.0
[2018-08-26 07:28] LABS: Internal QC Validated? YES +Cl - CLEAR BKGD; Pregnancy, Urine Negative Negative
--- NOTE | 2018-08-26 08:38 | PCM.DC.URO ---
Discharge Diet: No Restrictions Discharge Activity: May not drive while taking narcotic pain medications. May resume sexual activity in: No Restrictions Call your doctor if you observe: Fever of 101 or Higher, Inability to urinate, Shortness of breath, Chest pain, Calf discomfort, Uncontrolled pain Allergies/Adverse Reactions: Allergies No Known Allergies Allergy (Verified 08/19/18 08:04) Medications to take at Discharge multivitamin tablet 1 tab PO QDAY 02/16/18 Orders to be completed after discharge: Abdomen Single View [RAD] Location: None Selected Primary Care Physician: Diogo Bowen MD [Primary Care Provider] - Test Results: Test results from this visit will be discussed in further detail at your follow-up appointment, if applicable. Please Follow Up With: Alisa Choi MD When: 2-3 weeks
--- NOTE | 2018-08-26 08:42 | DCINST_ITS ---
Discharge Diet: No Restrictions Discharge Activity: May not drive while taking narcotic pain medications. May resume sexual activity in: No Restrictions Call your doctor if you observe: Fever of 101 or Higher, Inability to urinate, Shortness of breath, Chest pain, Calf discomfort, Uncontrolled pain Allergies/Adverse Reactions: Allergies No Known Allergies Allergy (Verified 08/19/18 08:04) Medications to take at Discharge multivitamin tablet 1 tab PO QDAY 02/16/18 Orders to be completed after discharge: Abdomen Single View [RAD] Location: None Selected Primary Care Physician: Diogo Bowen MD [Primary Care Provider] - Test Results: Test results from this visit will be discussed in further detail at your follow- up appointment, if applicable. Please Follow Up With: Alisa Choi MD When: 2-3 weeks
[2018-08-26] MEDS: Cefazolin 2 GM in 0.9% Normal Saline 100 ML IV (08:58)
--- NOTE | 2018-08-26 09:49 | OP.PN_ITS ---
Immediate Post-Op Note Date of Procedure: 08/26/18 Primary Surgeon/Physician: Alisa Choi MD casting machine service operator: Alisa Choi Pre-Operative Diagnosis: Right lower pole renal calculus Post-Operative Diagnosis: same Surgery/Procedure Performed:: Right renal extracorporeal shockwave lithotripsy Description of Surgical Findings:: stone not seen after 2300 shocks, procedure stopped. Estimated Blood Loss: N/A Specimen's removed: none - Admit VTE Documentation VTE Present on Admission: Yes VTE Mechan Device Prophylaxis: SCD's VTE Pharm Prophylaxis ordered?: No Reason prophylaxis not ordered:: Treatment Not Indicated
--- NOTE | 2018-08-26 09:49 | PCM.OPRPT ---
Problem List (1) Kidney stone Status: Acute Report of Operation Date of Procedure: 08/26/18 Pre-Operative Diagnosis: Right lower pole renal calculus Post-Operative Diagnosis: same Surgery/Procedure Performed:: Right renal extracorporeal shockwave lithotripsy Description of Surgical Findings:: stone not seen after 2300 shocks, procedure stopped. railcar carpenter: Alisa Choi Type of Anesthesia:: General Specimen's removed: none Estimated Blood Loss (mL): N/A Description of Procedure: The patient is a 33-year-old female with a right lower pole renal calculus identified on outpatient imaging. After discussing all the risks benefits and alternatives for treatment, she elected to proceed with extracorporal shockwave lithotripsy under general anesthesia. The patient was taken to the operating room and placed on the operating room table. Anesthesia monitored the head, neck, airway, IV access, and vital signs throughout the case. Once anesthesia was appropriately administered the patient was positioned and the stone was identified using fluoroscopic visualization. Once the stone was clearly seen, the lithotripter was aligned and 2300 shocks were applied to the stone. At this time, the stone was no longer able to be visualized on fluoroscopy. The decision was made to terminate the procedure. The patient was then awakened and taken to the recovery room in good condition. There were no complications during this procedure. Grafts/Implants Used: none - Complications none - Admit VTE Documentation VTE Present on Admission: Yes VTE Mechan Device Prophylaxis: SCD's VTE Pharm Prophylaxis ordered?: No Reason prophylaxis not ordered:: Treatment Not Indicated
--- NOTE | 2018-08-26 09:52 | OP.PCM_ITS ---
Problem List (1) Kidney stone Status: Acute Report of Operation Date of Procedure: 08/26/18 Pre-Operative Diagnosis: Right lower pole renal calculus Post-Operative Diagnosis: same Surgery/Procedure Performed:: Right renal extracorporeal shockwave lithotripsy Description of Surgical Findings:: stone not seen after 2300 shocks, procedure stopped. slitting machine operator helper: Alisa Choi Type of Anesthesia:: General Specimen's removed: none Estimated Blood Loss (mL): N/A Description of Procedure: The patient is a 33-year-old female with a right lower pole renal calculus identified on outpatient imaging. After discussing all the risks benefits and alternatives for treatment, she elected to proceed with extracorporal shockwave lithotripsy under general anesthesia. The patient was taken to the operating room and placed on the operating room table. Anesthesia monitored the head, neck, airway, IV access, and vital signs throughout the case. Once anesthesia was appropriately administered the patient was positioned and the stone was identified using fluoroscopic visualization. Once the stone was clearly seen, the lithotripter was aligned and 2300 shocks were applied to the stone. At this time, the stone was no longer able to be visualized on fluoroscopy. The decision was made to terminate the procedure. The patient was then awakened and taken to the recovery room in good condition. There were no complications during this procedure. Grafts/Implants Used: none - Complications none - Admit VTE Documentation VTE Present on Admission: Yes VTE Mechan Device Prophylaxis: SCD's VTE Pharm Prophylaxis ordered?: No Reason prophylaxis not ordered:: Treatment Not Indicated
== END 2018-08-26 11:22 | disposition home or self-care (01) ==
LOC: SDC 07:01 → AC 07:02
PROVIDERS: Family Provider Internal Medicine; PCP Internal Medicine; Referring Provider Urology; Visit Provider Urology
PROC: (CPT 50590; principal; 2018-08-26 08:20)
DX: N20.0 Calculus of kidney (principal)
CPT/HCPCS: 00873; 50590; 81025; J7120; J2405

== ENCOUNTER → 2018-09-09 08:51 | Outpatient (CLI) | payer OTHER, SELFPAY ==
--- NOTE | 2018-09-09 08:55 | RAD_ITS ---
STUDY: X-RAY - ABDOMEN/PELVIS REASON FOR EXAM: Female, 33 years old. Right kidney stone TECHNIQUE: 2 views COMPARISON: August 10, 2018. FINDINGS: Normal visualized lung bases. There is an unremarkable bowel gas pattern. Mild fecal retention. There is no demonstrated free abdominal air. Previously noted stone over the lower pole of the right kidney is not visualized. Normal soft tissue structures. Normal visualized osseous structures. RAD/Abdomen Single View IMPRESSION: No visualized stones over the renal shadows. Electronically Signed: John Enriquez DO at 22:03 EST Tel [phone], Service support ,
== END ==
PROVIDERS: Family Provider Internal Medicine; PCP Internal Medicine; Referring Provider Urology; Visit Provider Urology
DX: N20.0 Calculus of kidney (principal)
CPT/HCPCS: 74018

== ENCOUNTER → 2018-11-20 15:33 | Outpatient (CLI) | payer OTHER, SELFPAY ==
[2018-08-26 07:34] VITALS: BMI 25.0
--- OUTSIDE RECORDS SUMMARY | 2019-01-25 05:28 | XMS RPT_ITS ---
:1985 Author Organization OHIP Support Name Relationship Address Phone UE Unavailable Unavailable Unavailable BATSHEVA YASH Unavailable [address] + [place] [address] UE Unavailable Unavailable Unavailable BATSHEVA YASH Unavailable [address] + [place] [address] UE Unavailable Unavailable Unavailable BATSHEVA YASH Unavailable [address] +[phone] [place] [address] UE Unavailable Unavailable Unavailable BATSHEVA, YASH Unavailable [address] +[phone] [place] [address] UE Unavailable Unavailable Unavailable BATSHEVA, YASH Unavailable [address] +[phone] [place] [address] UE Unavailable Unavailable Unavailable BATSHEVA, YASH Unavailable [address] + [place] [address] UE Unavailable Unavailable Unavailable BATSHEVA, YASH Unavailable [address] +[phone] [place] [address] UE Unavailable Unavailable Unavailable BATSHEVA, YASH Unavailable [address] + [place] [address] BATSHEVA, LUIS ALFREDO Unavailable [address] + [place] [address] BATSHEVA, SARA Unavailable [address] + [place] [address] UE Unavailable Unavailable Unavailable BATSHEVA, YASH Unavailable [address] + [place] [address] BATSHEVA, LUIS ALFREDO Unavailable [address] + [place] [address] BATSHEVA, SARA Unavailable [address] + [place] [address] UE Unavailable Unavailable Unavailable BATSHEVA, YASH Unavailable [address] + [place] [address] UE Unavailable Unavailable Unavailable BATSHEVA, YASH Unavailable [address] + [place] [address] UE Unavailable Unavailable Unavailable BATSHVEA, YASH Unavailable [address] + [place] [address] UE Unavailable Unavailable Unavailable BATSHEVA, YASH Unavailable [address] + [place] [address] UE Unavailable Unavailable Unavailable BATSHEVA, YASH Unavailable [address] + [place] [address] UE Unavailable Unavailable Unavailable BATSHEVA, YASH Unavailable [address] + [place] [address] UE Unavailable Unavailable Unavailable BATSHEVA, YASH Unavailable [address] + [place] [address] UE Unavailable Unavailable Unavailable BATSHEVA, YASH Unavailable [address] + [place] [address] UE Unavailable Unavailable Unavailable BATSHEVA, YASH Unavailable [address] + [place] [address] UE Unavailable Unavailable Unavailable BATSHEVA, YASH Unavailable [address] + [place] [address] UE Unavailable Unavailable Unavailable BATSHEVA, YASH Unavailable [address] + [place] [address] UE Unavailable Unavailable Unavailable BATSHEVA, YASH Unavailable [address] + [place] [address] UE Unavailable Unavailable Unavailable BATSHEVA, YASH Unavailable [address] + [place] [address] UE Unavailable Unavailable Unavailable BATSHEVA, YASH Unavailable [address] + [place] [address] UE Unavailable Unavailable Unavailable BATSHEVA, YASH Unavailable [address] + [place] [address] UE Unavailable Unavailable Unavailable BATSHEVA, YASH Unavailable [address] + [place] [address] UE Unavailable Unavailable Unavailable BATSHEVA, YASH Unavailable [address] + [place] [address] UE Unavailable Unavailable Unavailable BATSHEVA, YASH Unavailable [address] + [place] [address] UE Unavailable Unavailable Unavailable BATSHEVA, YASH Unavailable [address] + [place] [address] UE Unavailable Unavailable Unavailable BATSHEVA, YASH Unavailable [address] + [place] [address] UE Unavailable Unavailable Unavailable BATSHEVA, YASH Unavailable [address] + [place] [address] UE Unavailable Unavailable Unavailable BATSHEVA, YASH Unavailable [address] + [place] [address] UE Unavailable Unavailable Unavailable BATSHEVA, YASH Unavailable [address] + [place] [address] UE Unavailable Unavailable Unavailable BATSHEVA, YASH Unavailable [address] + [place] [address] UE Unavailable Unavailable Unavailable BATSHEVA, YASH Unavailable [address] + [place] [address] UE Unavailable Unavailable Unavailable BATSHEVA, YASH Unavailable [address] + [place] [address] Care Team Providers Name Role Phone JULI MORELAND Attending Unavailable TASHA, HELDER COLEMAN Referring Unavailable CEBUL III, MICHELLE Sofia Attending Unavailable CEBUL III, MICHELLE Sofia Referring Unavailable CEBUL III, MICHELLE Sofia Referring Unavailable LA LONG Attending Unavailable LA LONG Referring Unavailable CEBUL III, MICHELLE Sofia Referring Unavailable Pacheco Núñez Attending Unavailable Oleghe, Efewongbe Referring Unavailable Pacheco Núñez Attending Unavailable Pacheco Núñez Referring Unavailable Oleghe, Efewongbe Primary Care Unavailable Tasha Helder Attending Unavailable Tasha, Helder Referring Unavailable Tasha, Helder Primary Care Unavailable TashaHelder casas Attending Unavailable Tasha, Helder Referring Unavailable Malys, Stella Primary Care Unavailable JennyTimmy Attending Unavailable Tasha, Helder Primary Care Unavailable JennyTimmy Attending Unavailable JennyTimmy Referring Unavailable Tasha, Helder Primary Care Unavailable Rich Ag Attending Unavailable Tasha, Helder Referring Unavailable Iza Jones Attending Unavailable Malys Stella Attending Unavailable Malys, Stella Referring Unavailable Tasha, Helder Primary Care Unavailable Lashonda Cherry Attending Unavailable Malys, Stella Primary Care Unavailable Precious Gurrola Attending Unavailable Tasha, Helder Referring Unavailable Malys, Stella Primary Care Unavailable Malys Stella Attending Unavailable Malys, Stella Primary Care Unavailable Dereje Bush Attending Unavailable Malys, Stella Referring Unavailable Malys, Stella Primary Care Unavailable Jonny Dereje Attending Unavailable Cebul, Dereje Referring Unavailable Malys, Stella Primary Care Unavailable Cebul, Dereje Attending Unavailable Cebul, Dereje Referring Unavailable Malys, Stella Primary Care Unavailable Cebul, Dereje Attending Unavailable Cebul, Dereje Referring Unavailable Malys, Stella Primary Care Unavailable Blanquita Bernal Attending Unavailable Dolores, Blanquita M Referring Unavailable Malys, Stella Primary Care Unavailable Shar Dow Attending Unavailable Malys, Stella Referring Unavailable Malys, Stella Primary Care Unavailable Cebul, Dereje Attending Unavailable Cebul, Dereje Referring Unavailable Malys, Stella Primary Care Unavailable Cebul, Dereje Consulting Unavailable Shar Dow Attending Unavailable Malys, Stella Primary Care Unavailable Rich Ag Attending Unavailable Cebul, Dereje Attending Unavailable Cebul, Dereje Referring Unavailable Malys, Stella Primary Care Unavailable Cebul, Dereje Consulting Unavailable Josette Ferrara Attending Unavailable Malys, Stella Primary Care Unavailable Ely Moreno PA-C Attending Unavailable Malys, Stella Referring Unavailable Malys, Stella Primary Care Unavailable Blanquita Bernal Attending Unavailable Dolores Blanquita M Referring Unavailable Malys, Stella Primary Care Unavailable Ramirez Soni Attending Unavailable Ramirez Soni Referring Unavailable Malys, Stella Primary Care Unavailable Ramirez Soni Attending Unavailable Malys, Stella Primary Care Unavailable Ramirez Soni Attending Unavailable Oleghe, Efewongbe Attending Unavailable Oleghe, Efewongbe Referring Unavailable Oleghe, Efewongbe Attending Unavailable Oleghe, Efewongbe Referring Unavailable Malys, Stella Primary Care Unavailable Ramirez Ferris NP-C Attending Unavailable Oleghe, Efewongbe Referring Unavailable Oleghe, Efewongbe Attending Unavailable Oleghe, Efewongbe Referring Unavailable Alisa Choi Attending Unavailable Alisa Choi Referring Unavailable Oleghe, Efewongbe Primary Care Unavailable Alisa Choi Attending Unavailable Alisa Choi Referring Unavailable Oleghe, Efewongbe Primary Care Unavailable Alisa Choi Attending Unavailable Alisa Choi Referring Unavailable Oleghe, Efewongbe Primary Care Unavailable REJI ALEXANDRA CNM Attending Unavailable [facility], HELDER Primary Care Unavailable REJI ALEXANDRA CNM Attending Unavailable [facility], HELDER Primary Care Unavailable MD JULI MORELAND Attending Unavailable HELDER CORDOVA Referring Unavailable MICHELLE BUSH Primary Care Unavailable IMCA Attending Unavailable IMCA Referring Unavailable HELDER CORDOVA Primary Care Unavailable PROBLEMS PROBLEMS DATE TYPE CONDITION / CODE ATTENDING STATUS SOURCE 11/20/2018 Unknown J02.9 - Acute Pacheco Núñez Active [facility] pharyngitis, Community unspecified / Hospital J02.9(ICD-10) Repository 11/20/2018 Unknown J01.90 - Acute Pacheco Núñez Active [facility] sinusitis, Community unspecified / Hospital J01.90(ICD-10) Repository 10/23/2018 Active Varicose veins of NA Active [facility] bilateral lower Clinic Main extremities with [place] other complications Repository / I83.893(ICD-10) 04/08/2013 Active Vitamin D FELIPE Active [facility] deficiency, [facility] Other unspecified / [place] E55.9(ICD-10) Repository 09/08/2018 Active Other malaise / FELIPE Active [facility] R53.81(ICD-10) [facility] Other [place] Repository 09/08/2018 Active Other fatigue / FELIPE Active [facility] R53.83(ICD-10) [facility] Other [place] Repository 04/08/2013 Admitting Unknown / FELIPE Active [facility] diagnosis UNK(Unknown) MD ABA [facility] JULI Repository 08/26/2018 Unknown N20.0 - Calculus of Alisa Choi Active [facility] kidney / Community N20.0(ICD-10) Hospital Repository 08/05/2018 Active Other symptoms and NA Active [facility] signs involving the Clinic Main nervous system / [place] R29.818(ICD-10) Repository 08/05/2018 Active Multiple sclerosis / NA Active [facility] G35(ICD-10) Clinic Main [place] Repository 07/15/2018 Active Unspecified NA Active [facility] disturbances of skin Clinic Main sensation / [place] R20.9(ICD-10) Repository 07/15/2018 Active Headache / NA Active [facility] R51(ICD-10) Clinic Main [place] Repository 07/15/2018 Active Hypothyroidism, NA Active [facility] unspecified / Clinic Main E03.9(ICD-10) [place] Repository 04/03/2018 Unknown E03.9 - NaeRamirez canales Active [facility] Hypothyroidism, Community unspecified / Hospital E03.9(ICD-10) Repository 04/03/2018 Unknown R35.8 - Other Ramirez Soni Active [facility] polyuria / Community R35.8(ICD-10) Hospital Repository 04/03/2018 Unknown E87.6 - Hypokalemia Ramirez Soni Active [facility] / E87.6(ICD-10) Community Hospital Repository 03/14/2018 Unknown K82.8 - Other Moreno PA-C, Active [facility] specified diseases [place] Community of gallbladder / Hospital K82.8(ICD-10) Repository 03/14/2018 Unknown K42.9 - Umbilical Moreno PA-C, Active [facility] hernia without [place] Community obstruction or Hospital gangrene / Repository K42.9(ICD-10) 03/05/2018 Unknown F41.9 - Anxiety Josette Ferrara Active [facility] disorder, Community unspecified / Hospital F41.9(ICD-10) Repository 03/05/2018 Unknown R53.1 - Weakness / Josette Ferrara Active [facility] R53.1(ICD-10) [facility] Repository 02/26/2018 Unknown G89.18 - Other acute CebuDereje cordero Active [facility] postprocedural pain Community / G89.18(ICD-10) Hospital Repository 02/21/2018 Unknown N39.0 - Urinary Shar Dow Active [facility] tract infection, Community site not specified / Hospital N39.0(ICD-10) Repository 02/16/2018 Unknown R10.9 - Unspecified CebuDereje cordero Active [facility] abdominal pain / Community R10.9(ICD-10) Hospital Repository 01/19/2018 Unknown R00.2 - Palpitations TashaHelder Active [facility] / R00.2(ICD-10) Community Hospital Repository 01/14/2018 Unknown R76.8 - Other Malys, Stella Active [facility] specified abnormal Community immunological Hospital findings in serum / Repository R76.8(ICD-10) 01/01/2018 Unknown M89.8X9 - Other Malys, Stella Active [facility] specified disorders Community of bone, unspecified Hospital site / Repository M89.8X9(ICD-10) 01/01/2018 Unknown R53.83 - Other Malys, Stella Active [facility] fatigue / Community R53.83(ICD-10) Hospital Repository 01/01/2018 Unknown M25.50 - Pain in Stella Bustamante Active [facility] unspecified joint / Community M25.50(ICD-10) Hospital Repository 12/05/2017 Unknown K81.9 - Helder Cordova Active [facility] Cholecystitis, Community unspecified / Hospital K81.9(ICD-10) Repository PROCEDURES PROCEDURES No Procedure Records FoundRESULTS RESULTS Observed: 11/20/2018 Status: F Source: [place] CULTURE, R/O STREP A 3:52 PM [facility] WILL Culture No Streptococcus group A isolated. * This cultures intended use is to screen for Beta Streptococcus A only. All other pathogens and potential pathogens will not be screened for or reported. If a complete workup of all potential pathogens is indicated an order for a routine throat culture is required. Performed By: #### M100.010 #### [facility] [address] [place], [place], [address] URGENT CARE VISIT Observed: 11/20/2018 Status: F Source: [place] REPORT 6:46 AM [facility] [address] [place] [address] [address] [place] [address] OFFICE VISIT Date of Service: 11/20/18 MR#: [id number] Acct: [id number] Name: DENIA HERMAN Rep #: [id number] : 1985 Provider: Pacheco FELIX Age/Sex: 33/F Location: [facility] Status: Signed Intake Vital Signs11/20/18 Blood Pressure 110/78 11/20/18 Blood Pressure Location Lt brachial 11/20/18 Blood Pressure Position Sitting Intake Visit Reasons: STREP Chief Complaint: Sore throat Careers Counsellor Required: No Accompanied by: self Is patient in pain?: No Allergies No Known Allergies Allergy (Verified 11/20/18 06:25) Medications multivitamin tablet 1 tab PO QDAY 02/16/18 [History Confirmed 11/20/18] amoxicillin 875 mg-potassium clavulanate 125 mg tablet 1 tab PO Q12H 10 Days #20 tab 11/20/18 [Rx Confirmed 11/20/18] PFSH Medical History Diarrhea (Acute) Nausea (Acute) Abdominal pain (Acute) Kidney stone (Acute) Anxiety (Chronic) Hypothyroidism (Acute) Surgical History S/P surgical removal of pilonidal cyst (Acute) S/P nasal septoplasty (Acute) S/P tonsillectomy and adenoidectomy (Acute) S/P laparoscopic cholecystectomy (Acute) Family History Mother No problems noted. Social History Smoking Status: Never smoker second hand exposure: No alcohol intake: never substance use type: does not use caffeine: No what type of physical activity do you participate in: none frequency: does not exercise seatbelt use: always HPI HPI Chief Complaint: Sore throat Details: DENIA HERMAN, is a 33 F who presents to the office today for complaint of 1 week of worsening sore throat. Patient states that her throat pain has worsened during this episode and is made worse by swallowing or eating. Patient states that she has also lost her voice over the past several days and today awoke with ear pressure. She is concerned for strep and is requesting a strep test at this time. She denies fever, chills, sweats. No nausea, vomiting, diarrhea. No other associated symptoms or alleviating/aggravating factors. ROS Const Constitutional: No fever(s), headache(s), anorexia, chills or abnormal sleep pattern ENT ENT: Positive for post nasal drip, sore throat, nasal congestion, nasal discharge and ear pressure; no headache(s) or ear pain Resp Respiratory: No shortness of breath Cardio Cardiology: No irregular heart rhythm or palpitations Gastro GI: No nausea/dyspepsia Neuro Neurology: No headache(s) or behavioral changes Psych Psychiatric: No abnormal sleep pattern, No behavioral changes Exam Const General: cooperative, healthy appearing [facility] Head: normal to inspection Ears: hearing grossly normal bilaterally, TM's normal bilaterally, EAC's normal Nose: external nose normal, nasal discharge clear Mouth: oral mucosae normal Throat: abnormal tonsil (2+ edema with minimal erythema. No airway obstruction) bilaterally Resp Effort AND Inspection: normal respiratory effort Auscultation: Bilateral: Clear to Auscultation Cardio Palpation: normal PMI Rate: regular rate Rhythm: regular rhythm Neuro General: CN's II-XI intact bilaterally, alert Psych Appearance: grossly normal Mental Status: mental status grossly normal Assessment AND Plan Problems 1. Acute pharyngitis, unspecified etiology J02.9 Status Acute Plan Negative rapid strep in the office, patient informed we will send the swab to the lab for culture and notify her of any positive results. Patient started on Augmentin at her request with recommendation to not start it for the next several days or until after she gets a positive results from the strep culture. Encouraged to get plenty of rest, drink lots of clear liquids, and use Tylenol or Ibuprofen (unless contraindicated) for fever and comfort. Patient also educated on other symptomatic management techniques. To be seen in 7-10 days if no improvement; sooner if worsening of symptoms. Patient advised of potential red flags including but not limited to difficulty breathing and other worsening symptoms and when appropriate to report to the ED. Patient verbalized understanding and agreement with all the above. Orders Orders: Medications New: amoxicillin-pot clavulanate 875-125 mg (Augmentin1 tab PO Q12H 10 days 20 tabs 0RF J01.90 ) Coding Level of Care Code Off vis,est,level 3 Diagnoses Acute pharyngitis, unspecified etiology J02.9 Pharyngitis/tonsillitis etiology: unspecified etiology 11/20/18 0646 <Electronically signed by Pacheco FELIX> Date Pacheco FELIX Cosigner Signature: Date (if applicable) CC: PROGRESS Observed: 11/02/2018 Status: COMPLETED Source: [place] 5:29 PM [facility] REPOSITORY O ID: [id number] Author: Michelle Bush III Service: (none) Author Type: Physician Type: Progress Notes Filed: 11/02/2018 5:29 PM Note Text: Denia, The vitamin D level is normal. Continue vitamin D 2000 units daily. Michelle Bush III, MD, FAAFP VITAMIN D 25 HYDROXY Collected: 10/30/2018 Status: F Source: [place] 3:00 PM [facility] REPOSITORY TYPE CODE TESTS RESULT OUT OF REFERENCE UNITS RANGE LAB VITD 31.0-80.0 ng/mL Vitamin D 25 41.7 Hydroxy Result Comment: Classification of 25 [place] Vitamin D status: Insufficiency/Moderate Deficiency: < or = 30 ng/mL Sufficiency/Optimal Levels: 31 to 80 ng/mL Toxicity: > 100 ng/mL Test performed by chemiluminescent immunoassay. Performed By: #### VITD #### [facility] [address] [place], [place] [address] CNPN Observed: 10/23/2018 Status: COMPLETED Source: [place] 12:00 AM [facility] REPOSITORY Telephone (VASSMD) DENIA HERMAN ([id number]) 1985 F CHT Date Time Provider Department 10/23/18 LA LONG During your visit today, we recorded the following information about you: Fe Chalo Psr 10/23/2018 4:13 PM Signed Spoke to patient to advise that per Dr. Long all her oracio lab testing looks good. No need for evlt or stab but a sclero would be beneficial. Fe Will call pt in Nov to set up sclero. Fe Isabel Psr 11/26/2018 11:29 AM Signed Spoke to patient to set up sclero Allergies As of Date: 10/23/2018 Noted Allergy Reaction IV DYE [Other] 01/07/2006 2 - Rash ZITHROMAX (AZITHROMYCIN) 01/07/2006 6 - Diarrhea Date Reviewed: 10/22/2018 Reviewed by: Sarah Muhammad Ma - Fully Assessed Reason for Visit: Results [95] Cmt: FUTURE PROCEDURES Reason For Visit History Recorded Prescriptions as of 10/23/2018 Sig: CHOLECALCIFEROL (VITAMIN D3) * Take 1 capsule by mouth once * Problem List As Of Date 10/23/2018 Noted Resolved Supervision of normal first [Z34.00] INVALID FOR*12/25/2011 Supervision of other normal [Z34.80] INVALID FOR*11/13/2012 More... Breech presentation, antepartum [O32.1XX0] INVALID FOR*09/21/2012 More... Vitamin D deficiency [E55.9] INVALID FOR* Headache, unspecified headache type [R51] INVALID FOR* Paresthesias/numbness [R20.9] INVALID FOR* Hypothyroidism [E03.9] Encounter Status:Closed by FE GARCIA on 11/04/18 PROGRESS Observed: 10/22/2018 Status: COMPLETED Source: [place] 11:27 AM [facility] REPOSITORY [facility] ID: [id number] Author: La Long Service: (none) Author Type: Physician Type: Progress Notes Filed: 11/02/2018 10:35 PM Note Text: VASCULAR SURGERY INITIAL CONSULT SERVICE DATE: 10/22/2018 SERVICE TIME: 11:28 AM PRIMARY CARE PHYSICIAN: Michelle Bush III MD Consult requested for an opinion regarding the evaluation and treatment of the above. My final impression and recommendations will be communicated back to the requesting physician by way of the shared medical record or letter via US mail. CHIEF COMPLAINT/HISTORY OF PRESENT ILLNESS: Chief Complaint: Patient presents with: Varicose Veins History of Present Illness: Patient is a 33 year old White female presenting for consultation, evaluation and possible treatment of varicose veins. Patient reports bilateral throbbing and heaviness. Predisposing factors include family history of varicose veins is positive and include(s) mother without surgery grandmother without surgery and history of varicose vein surgery EVLT this week. No specific history of injury or prior problems. Relieving factors include support hose, elevation of legs and reduced activity with mild improvement in symptoms. Patient denies DVT, phlebitis and treatment with blood thinners. Ms. Herman states she had an right leg EVLT performed 10/19/2018 at [facility]. After her procedure, she was informed she could no longer go there as it was not covered under her insurance. She is here today to establish care with vascular surgery for further treatment and follow-up on her EVLT Pain Assessment: PAIN EVALUATION 10/22/2018 Pain Score: 7 Pain Location: - bilateral legs Description: Throbbing Duration Amount of Time: 1 Duration Units: Years Frequency: Continuous Intervention: Relaxation Obstetric History T2 L2 SAB1 TAB0 Ectopic0 Multiple0 Live Births2 Name of Baby 1: BULMARO Date: 04/27/09 GA: 39w6d Delivery: Vaginal, Spontaneous Delivery Apgar1: Not recorded Apgar5: Not recorded Living: Living Name of Baby 2: Not recorded Date: 10/14/11 GA: Not recorded Delivery: Not recorded Apgar1: Not recorded Apgar5: Not recorded Living: Not recorded Name of Baby 3: Not recorded Date: 09/23/12 GA: 39w6d Delivery: Vaginal, Spontaneous Delivery Apgar1: 9 Apgar5: 9 Living: Living Duration of Symptoms: Greater Than 1 Year PREVIOUS TESTS: None CARDIOVASCULAR RISK FACTORS: Family history PAST MEDICAL/SURGICAL/FAMILY/SOCIAL HISTORY PAST MEDICAL HISTORY Diagnosis Date - Anxiety - Herniated disc - Kidney stone - Migraine, unspecified, with intractable migraine, so stated, without mention of status migrainosus Migraine - Miscarriage 10/2011 - PMH - PAST MEDICAL HISTORY OF 2003 SEIZURE-LIKE STARING SPELLS - Vitamin D deficiency 04/08/2013 PAST SURGICAL HISTORY Procedure Laterality Date - CHOLEYCYSTOGRAM,GALL BLADDER 02/2018 - DRAINAGE OF PILONIDAL CYST - PAST SURGICAL HISTORY OF 10/28/07 deviated septum correction - REMOVAL ADENOIDS,PRIMARY,<12 Y/O Adenoidectomy 1995 - REMOVAL OF TONSILS,<12 Y/O TANDA 1990 FAMILY HISTORY Problem Relation Age of Onset - Hypertension Mother - Hypertension Maternal Grandmother - Cancer Paternal Grandfather lung and colon cancer - Heart Maternal Aunt MVP SOCIAL HISTORYSocial History Marital status: Spouse name: Yash Years of education: 16 Number of children: 1 Occupational History Occupation Employer Comment homemaker Social History Main Topics Smoking status: Never Smoker Smokeless tobacco: Never Used Alcohol use: No Comment: denies caffeine use Drug use: No Sexual activity: Yes Partners with: Male control/protection: None Comment: wants MEDICATIONS/ALLERGIES Current Outpatient Prescriptions: Cholecalciferol, Vitamin D3, 2,000 unit cap Take 1 capsule by mouth once daily. Disp: Rfl: No current facility-administered medications for this visit. ALLERGIES Allergen Reactions - Iv Dye [Other] Rash - Zithromax [Azithrom* Diarrhea REVIEW OF SYSTEMS Constitutional: No weight loss, malaise or fevers. HEENT: Negative for frequent or significant headaches, No changes in hearing or vision, no nose bleeds or other nasal problems Respiratory: Negative for cough, wheezing, or shortness of breath Cardiovascular: Negative for chest pain, leg swelling or palpitations Gatrointestinal: Negative for abdominal discomfort, blood in stools or black stools or change in bowel habits Genitourinary: No history of dysuria, frequency, or incontinence and No difficulty urination, nocturia >1 times per night or hematuria Musculoskeletal: Negative for joint pain or swelling, back pain or muscle pain Endocrine: Negative for cold or heat intolerance, polyuria, polydipsia and goiter Hematology/Lymphatic: Negative for prolonged bleeding, bruising easily or swollen nodes Neurologic: No history or headaches, syncope, paralysis, seizures or tremors Integumentary: Negative for lesions, rash, and itching. PHYSICAL EXAM VITALS: BP 145/79 Pulse 84 Resp 19 Ht 5' 7 (1.70m) Wt 159 lb 1.6 oz (72.2kg) SpO2 100% BMI 24.91 kg/(m2). General: Alert, oriented, cooperative, healthy appearance Integumentary: Normal color, no rash, no lesions. HEENT: EOM, teeth in good repair. Pupils equal, round and reactive. Cardiovascular: Pulse regular. Lungs: Normal breath sounds, no wheezes or crackles. Abdomen: Soft, non-tender, no rigidity. Extremities: right leg compression stocking, left leg varicose veins, spider veins Neurological: AAOx3. Normal cognition and motor skills. ASSESSMENT Symptomatic varicose veins Diagnostic tests reviewed for today's visit: Most recent labs Most recent imaging PLAN/RECOMMENDATIONS Will obtain one week reflux testing following her ablation at outside vein clinic as she was told her insurance was no longer accepted despite having had a procedure done this past Friday Recommend continuing compression as tolerated Will get updated venous reflux testing on her left leg as she was told that she needed an ablation on left leg We discussed treatment of remaining veins with sclerotherapy- she was told that it was covered and she would like to proceed Will call with results of testing and follow up pending SIGNATURE: La Long DO PATIENT NAME: Denia Herman DATE: October 22, 2018 TIME: 11:28 AM CNOV Observed: 10/22/2018 Status: COMPLETED Source: [place] 11:00 AM [facility] REPOSITORY Office Visit (VASSMD) DENIA HERMAN ([id number]) 1985 F [facility] Date Time Provider Department 10/22/18 11:00 AM LA LONG During your visit today, we recorded the following information about you: Pulse Respiration Blood pressure Weight 84/minute 19/minute 145/79 72.2 kg Height 1.702 m La Long DO 11/02/2018 10:35 PM Signed VASCULAR SURGERY INITIAL CONSULT SERVICE DATE: 10/22/2018 SERVICE TIME: 11:28 AM PRIMARY CARE PHYSICIAN: Michelle Bush III MD Consult requested for an opinion regarding the evaluation and treatment of the above. My final impression and recommendations will be communicated back to the requesting physician by way of the shared medical record or letter via US mail. CHIEF COMPLAINT/HISTORY OF PRESENT ILLNESS: Chief Complaint: Patient presents with: Varicose Veins History of Present Illness: Patient is a 33 year old White female presenting for consultation, evaluation and possible treatment of varicose veins. Patient reports bilateral throbbing and heaviness. Predisposing factors include family history of varicose veins is positive and include(s) mother without surgery grandmother without surgery and history of varicose vein surgery EVLT this week. No specific history of injury or prior problems. Relieving factors include support hose, elevation of legs and reduced activity with mild improvement in symptoms. Patient denies DVT, phlebitis and treatment with blood thinners. Ms. Herman states she had an right leg EVLT performed 10/19/2018 at [facility]. After her procedure, she was informed she could no longer go there as it was not covered under her insurance. She is here today to establish care with vascular surgery for further treatment and follow-up on her EVLT Pain Assessment: PAIN EVALUATION 10/22/2018 Pain Score: 7 Pain Location: - bilateral legs Description: Throbbing Duration Amount of Time: 1 Duration Units: Years Frequency: Continuous Intervention: Relaxation Obstetric History T2 L2 SAB1 TAB0 Ectopic0 Multiple0 Live Births2 Name of Baby 1: BULMARO Date: 04/27/09 GA: 39w6d Delivery: Vaginal, Spontaneous Delivery Apgar1: Not recorded Apgar5: Not recorded Living: Living Name of Baby 2: Not recorded Date: 10/14/11 GA: Not recorded Delivery: Not recorded Apgar1: Not recorded Apgar5: Not recorded Living: Not recorded Name of Baby 3: Not recorded Date: 09/23/12 GA: 39w6d Delivery: Vaginal, Spontaneous Delivery Apgar1: 9 Apgar5: 9 Living: Living Duration of Symptoms: Greater Than 1 Year PREVIOUS TESTS: None CARDIOVASCULAR RISK FACTORS: Family history PAST MEDICAL/SURGICAL/FAMILY/SOCIAL HISTORY PAST MEDICAL HISTORY Diagnosis Date - Anxiety - Herniated disc - Kidney stone - Migraine, unspecified, with intractable migraine, so stated, without mention of status migrainosus Migraine - Miscarriage 10/2011 - PMH - PAST MEDICAL HISTORY OF 2003 SEIZURE-LIKE STARING SPELLS - Vitamin D deficiency 04/08/2013 PAST SURGICAL HISTORY Procedure Laterality Date - CHOLEYCYSTOGRAM,GALL BLADDER 02/2018 - DRAINAGE OF PILONIDAL CYST - PAST SURGICAL HISTORY OF 10/28/07 deviated septum correction - REMOVAL ADENOIDS,PRIMARY,<12 Y/O Adenoidectomy 1995 - REMOVAL OF TONSILS,<12 Y/O TANDA 1990 FAMILY HISTORY Problem Relation Age of Onset - Hypertension Mother - Hypertension Maternal Grandmother - Cancer Paternal Grandfather lung and colon cancer - Heart Maternal Aunt MVP SOCIAL HISTORYSocial History Marital status: Spouse name: Yash Years of education: 16 Number of children: 1 Occupational History Occupation Employer Comment homemaker Social History Main Topics Smoking status: Never Smoker Smokeless tobacco: Never Used Alcohol use: No Comment: denies caffeine use Drug use: No Sexual activity: Yes Partners with: Male control/protection: None Comment: wants MEDICATIONS/ALLERGIES Current Outpatient Prescriptions: Cholecalciferol, Vitamin D3, 2,000 unit cap Take 1 capsule by mouth once daily. Disp: Rfl: No current facility-administered medications for this visit. ALLERGIES Allergen Reactions - Iv Dye [Other] Rash - Zithromax [Azithrom* Diarrhea REVIEW OF SYSTEMS Constitutional: No weight loss, malaise or fevers. HEENT: Negative for frequent or significant headaches, No changes in hearing or vision, no nose bleeds or other nasal problems Respiratory: Negative for cough, wheezing, or shortness of breath Cardiovascular: Negative for chest pain, leg swelling or palpitations Gatrointestinal: Negative for abdominal discomfort, blood in stools or black stools or change in bowel habits Genitourinary: No history of dysuria, frequency, or incontinence and No difficulty urination, nocturia >1 times per night or hematuria Musculoskeletal: Negative for joint pain or swelling, back pain or muscle pain Endocrine: Negative for cold or heat intolerance, polyuria, polydipsia and goiter Hematology/Lymphatic: Negative for prolonged bleeding, bruising easily or swollen nodes Neurologic: No history or headaches, syncope, paralysis, seizures or tremors Integumentary: Negative for lesions, rash, and itching. PHYSICAL EXAM VITALS: BP 145/79 Pulse 84 Resp 19 Ht 5' 7 (1.70m) Wt 159 lb 1.6 oz (72.2kg) SpO2 100% BMI 24.91 kg/(m2). General: Alert, oriented, cooperative, healthy appearance Integumentary: Normal color, no rash, no lesions. HEENT: EOM, teeth in good repair. Pupils equal, round and reactive. Cardiovascular: Pulse regular. Lungs: Normal breath sounds, no wheezes or crackles. Abdomen: Soft, non-tender, no rigidity. Extremities: right leg compression stocking, left leg varicose veins, spider veins Neurological: AAOx3. Normal cognition and motor skills. ASSESSMENT Symptomatic varicose veins Diagnostic tests reviewed for today's visit: Most recent labs Most recent imaging PLAN/RECOMMENDATIONS Will obtain one week reflux testing following her ablation at outside vein clinic as she was told her insurance was no longer accepted despite having had a procedure done this past Friday Recommend continuing compression as tolerated Will get updated venous reflux testing on her left leg as she was told that she needed an ablation on left leg We discussed treatment of remaining veins with sclerotherapy- she was told that it was covered and she would like to proceed Will call with results of testing and follow up pending SIGNATURE: La Long DO PATIENT NAME: Denia Herman DATE: October 22, 2018 TIME: 11:28 AM Referring Provider: SELF [[id number]] Allergies As of Date: 10/22/2018 Noted Allergy Reaction IV DYE [Other] 01/07/2006 2 - Rash ZITHROMAX (AZITHROMYCIN) 01/07/2006 6 - Diarrhea Date Reviewed: 10/22/2018 Reviewed by: Sarah Muhammad Ma - Fully Assessed Reason for Visit: Varicose Veins [965] Primary Visit Diagnosis:Symptomatic varicose veins of both lower extremities [I83.893] Order(s):[facility] [[id number]] Order #: [id number] FUTURE Prescriptions as of 10/22/2018 Sig: CHOLECALCIFEROL (VITAMIN D3) * Take 1 capsule by mouth once * Problem List As Of Date 10/22/2018 Noted Resolved Supervision of normal first [Z34.00] INVALID FOR*12/25/2011 Supervision of other normal [Z34.80] INVALID FOR*11/13/2012 More... Breech presentation, antepartum [O32.1XX0] INVALID FOR*09/21/2012 More... Vitamin D deficiency [E55.9] INVALID FOR* Headache, unspecified headache type [R51] INVALID FOR* Paresthesias/numbness [R20.9] INVALID FOR* Hypothyroidism [E03.9] Encounter Status:Closed by LA LONG DO on 11/02/18 ABDOMEN SINGLE VIEW Observed: 09/09/2018 Status: F Source: [place] 8:55 AM [facility] Imaging Services [address] [place] [id number] Abdomen Single View MR#: [id number] Acct: [id number] Name: BATSHEVADENIA J Rep #: [id number] : 1985 F 33 From: John Enriquez DO PCP: Diogo Bowen MD Status: REG CLI Study: Abdomen Single View Date of Exam: 09/09/18 Exam# [id number] Ordering Dr: Alisa Choi MD STUDY: X-RAY - ABDOMEN/PELVIS REASON FOR EXAM: Female, 33 years old. Right kidney stone TECHNIQUE: 2 views COMPARISON: August 10, 2018. FINDINGS: Normal visualized lung bases. There is an unremarkable bowel gas pattern. Mild fecal retention. There is no demonstrated free abdominal air. Previously noted stone over the lower pole of the right kidney is not visualized. Normal soft tissue structures. Normal visualized osseous structures. RAD/Abdomen Single View IMPRESSION: No visualized stones over the renal shadows. Electronically Signed: John Enriquez DO at 22:03 EST Tel [phone], Service support , CC: Diogo Bowen MD; Alisa Choi MD Police Guard: Signed PROGRESS Observed: 09/08/2018 Status: COMPLETED Source: [place] 2:47 PM CLINIC OTHER CAMPUS REPOSITORY HNO ID: [id number] Author: Juli Leary Service: (none) Author Type: Physician Type: Progress Notes Filed: 09/08/2018 4:12 PM Note Text: Endocrinology Initial Assessment Denia Herman is here for a consultation upon the request of PCP regarding: hypothyroidism PCP is HAMILTON Nicholson MD, III MD [address] [place] [address] History of Present Illness Denia Herman is a 33 year old female with PMH of Migraines and kidney stone who presents today for evaluation of fatigue. The patient was referred by her PCP to see if there is any endocrinologic condition to explain her symptoms. She has been noticed fatigue and weakness in her entire body, hair loss and migraine heachaches ~2-3x/week. She also describes in her anterior chest especially when she gets nervous and cystic acne. Has seen a toll gate keeper and was prescribed accutane cream. Did not think was rosacea. She had recent TFTs, normal. Had mildly low vitamin D and was advised to take OTC vit D 2,000 IU QD. Normal menstrual periods. She is , last 15 months ago. No GDM during . No hirsutism. She describes having tenderness in the posterior neck, and thighs. Past History, Medications, Allergies PAST MEDICAL HISTORY Diagnosis Date - Anxiety - Herniated disc - Kidney stone - Migraine, unspecified, with intractable migraine, so stated, without mention of status migrainosus Migraine - Miscarriage 10/2011 - PMH - PAST MEDICAL HISTORY OF 2003 SEIZURE-LIKE STARING SPELLS - Vitamin D deficiency 04/08/2013 PAST SURGICAL HISTORY Procedure Laterality Date - CHOLEYCYSTOGRAM,GALL BLADDER 02/2018 - DRAINAGE OF PILONIDAL CYST - PAST SURGICAL HISTORY OF 10/28/07 deviated septum correction - REMOVAL ADENOIDS,PRIMARY,<12 Y/O Adenoidectomy 1995 - REMOVAL OF TONSILS,<12 Y/O TANDA 1989 Current Outpatient Prescriptions: Cholecalciferol, Vitamin D3, 2,000 unit cap Take 1 capsule by mouth once daily. Disp: Rfl: oxybutynin ER (DITROPAN XL) 15 mg 24 hr Extended Rel Tab Take 15 mg by mouth once daily. Disp: Rfl: fluticasone (FLONASE) 50 mcg/actuation nasal spray Use 2 Sprays in each nostril once daily. FOR ALLERGIC NASAL SX. (Patient not taking: Reported on 09/08/2018 ) Disp: 1 Bottle Rfl: 2 No current facility-administered medications for this visit. ALLERGIES Allergen Reactions - Iv Dye [Other] Rash - Zithromax [Azithrom* Diarrhea FAMILY HISTORY Problem Relation Age of Onset - Hypertension Mother - Hypertension Maternal Grandmother - Cancer Paternal Grandfather lung and colon cancer - Heart Maternal Aunt MVP Social History Marital status: Spouse name: Yash Years of education: 16 Number of children: 1 Occupational History Occupation Employer Comment homemaker Social History Main Topics Smoking status: Never Smoker Smokeless tobacco: Never Used Alcohol use: No Comment: denies caffeine use Drug use: No Sexual activity: Yes Partners with: Male control/protection: None Comment: wants Review of Systems Thyroid Pain: no Mass Effect: None Energy: reduced Moods: good Sleep: Normal sleep pattern Temp. Intolerance: None Cardiac: NOT SIGNIFICANT CV: No history of chest pain, palpitation, orthopnea, cyanosis, pedal edema and No history of chest pain, palpitation, orthopnea, cynosis, pedel edema Gyne: Regular Menses Resp: No cough, hemoptysis, asthma, recent chest infection, wheezing GI: +diarrhea, had removal of gallbladder 2017 Weight: remained stable Eyes: no blurring Memory: Good Diaphoresis: Not significant Skin: hives in the anterior neck, itchy M/S: muscle pain in thighs and the back of the neck Neuro: migraine headaches 2-3x/day Physical examination BP 102/60 Pulse 76 Ht 172.7 cm (5' 8) Wt 72.6 kg (160 lb) BMI 24.33 kg/m? GENERAL: Well nourished, well hydrated, in no distress and oriented x 3 COMMUNICATION: Hearing: nL; VOICE: normal EYES: no thyroid eye signs, KARELY, Fundi normal and cornea normal NECK: no visible nodules or goiter, no bruit, no tenderness and no adenopathies. Macular rash in the anterior neck THYROID: smooth, non-tender, 15 gram, firm and No palpable nodules Heart RRR with normal S1 and S2, no murmurs, no gallops, no JVD appreciated Lungs clear to auscultation Abdomen bowel sounds normoactive, no bruits, soft, non-tender, non-distended, without organomegaly or palpable masses, no tenderness to palpation EXTREMITIES: No clubbing, no edema, no cyanosis and normal nails NEURO: normal strength, no tremor and normal reflexes Previous Laboratory Results Component Latest Ref Rng AND Units 04/07/2013 07/15/2018 Protein, Total 6.3 - 8.0 g/dL 7.7 7.3 Albumin 3.9 - 4.9 g/dL 4.6 4.4 Calcium 8.5 - 10.2 mg/dL 9.6 9.3 Bilirubin, Total 0.2 - 1.3 mg/dL 0.1 0.3 Alkaline Phosphatase 32 - 117 U/L 95 59 AST 13 - 35 U/L 21 22 Glucose 74 - 99 mg/dL 67 78 BUN 7 - 21 mg/dL 13 16 Creatinine 0.58 - 0.96 mg/dL 0.55 (L) 0.65 Sodium 136 - 144 mmol/L 139 138 Potassium 3.7 - 5.1 mmol/L 3.7 4.0 Chloride 97 - 105 mmol/L 100 101 CO2 22 - 30 mmol/L 24 22 Anion Gap 9 - 18 mmol/L 15 15 ALT 7 - 38 U/L 15 13 eGFR- >60 >60 eGFR-All Other Races . >60 >60 TSH 0.400 - 5.500 uU/mL 2.900 1.720 T4 5.0 - 11.0 ug/dL 7.0 Vitamin D 25 Hydroxy 31.0 - 80.0 ng/mL 19.2 (L) 26.6 (L) Free T4 0.9 - 1.7 ng/dL 1.1 Impression/Recommendations 33 year old female comes to the clinic for evaluation of: ASSESSMENT/PLAN: 1. Malaise and fatigue - ICD9: 780.79, ICD10: R53.81, R53.83 (primary diagnosis) She has normal TFTs. Vitamin D mildly low, on replacement. No clinical suspicion for PCOS She describes tenderness in the posterior neck and thighs. I recommend she has evaluation for fibromyalgia Encouraged exercise 2. Vitamin D deficiency - ICD9: 268.9, ICD10: E55.9 On replacement. Taking OTC vit D 2,000 IU QD Juli Leary MD CNOV Observed: 09/08/2018 Status: COMPLETED Source: [place] 2:30 PM [facility]INIC OTHER CAMPUS REPOSITORY Office Visit (AGENDOG) DENIA HERMAN ([id number]) 1985 F [facility] Date Time Provider Department 09/08/18 2:30 PM JULI MORELAND AGERUPERT During your visit today, we recorded the following information about you: Pulse Blood pressure Weight Height 76/minute 102/60 72.6 kg 1.727 m Sameera Faustina 09/08/2018 3:02 PM Signed Pt here today per PCP for further evaluation of abnormal sx. Pt c/o: Hives on chest for the last 6 months on and off Migraines X 2-3 per months usually around cycle. Pain all over body from the time she wakes up - negative for Lupus Juli Leary MD 09/08/2018 4:12 PM Signed Endocrinology Initial Assessment Denia Herman is here for a consultation upon the request of PCP regarding: hypothyroidism PCP is HAMILTON Nicholson MD, III MD [address] [place] [address] History of Present Illness Denia Herman is a 33 year old female with PMH of Migraines and kidney stone who presents today for evaluation of fatigue. The patient was referred by her PCP to see if there is any endocrinologic condition to explain her symptoms. She has been noticed fatigue and weakness in her entire body, hair loss and migraine heachaches ~2-3x/week. She also describes in her anterior chest especially when she gets nervous and cystic acne. Has seen a toll gate keeper and was prescribed accutane cream. Did not think was rosacea. She had recent TFTs, normal. Had mildly low vitamin D and was advised to take OTC vit D 2,000 IU QD. Normal menstrual periods. She is , last 15 months ago. No GDM during . No hirsutism. She describes having tenderness in the posterior neck, and thighs. Past History, Medications, Allergies PAST MEDICAL HISTORY Diagnosis Date - Anxiety - Herniated disc - Kidney stone - Migraine, unspecified, with intractable migraine, so stated, without mention of status migrainosus Migraine - Miscarriage 10/2011 - PMH - PAST MEDICAL HISTORY OF 2003 SEIZURE-LIKE STARING SPELLS - Vitamin D deficiency 04/08/2013 PAST SURGICAL HISTORY Procedure Laterality Date - CHOLEYCYSTOGRAM,GALL BLADDER 02/2018 - DRAINAGE OF PILONIDAL CYST - PAST SURGICAL HISTORY OF 10/28/07 deviated septum correction - REMOVAL ADENOIDS,PRIMARY,<12 Y/O Adenoidectomy 1995 - REMOVAL OF TONSILS,<12 Y/O TANDA 1989 Current Outpatient Prescriptions: Cholecalciferol, Vitamin D3, 2,000 unit cap Take 1 capsule by mouth once daily. Disp: Rfl: oxybutynin ER (DITROPAN XL) 15 mg 24 hr Extended Rel Tab Take 15 mg by mouth once daily. Disp: Rfl: fluticasone (FLONASE) 50 mcg/actuation nasal spray Use 2 Sprays in each nostril once daily. FOR ALLERGIC NASAL SX. (Patient not taking: Reported on 09/08/2018 ) Disp: 1 Bottle Rfl: 2 No current facility-administered medications for this visit. ALLERGIES Allergen Reactions - Iv Dye [Other] Rash - Zithromax [Azithrom* Diarrhea FAMILY HISTORY Problem Relation Age of Onset - Hypertension Mother - Hypertension Maternal Grandmother - Cancer Paternal Grandfather lung and colon cancer - Heart Maternal Aunt MVP Social History Marital status: Spouse name: Yash Years of education: 16 Number of children: 1 Occupational History Occupation Employer Comment homemaker Social History Main Topics Smoking status: Never Smoker Smokeless tobacco: Never Used Alcohol use: No Comment: denies caffeine use Drug use: No Sexual activity: Yes Partners with: Male control/protection: None Comment: wants Review of Systems Thyroid Pain: no Mass Effect: None Energy: reduced Moods: good Sleep: Normal sleep pattern Temp. Intolerance: None Cardiac: NOT SIGNIFICANT CV: No history of chest pain, palpitation, orthopnea, cyanosis, pedal edema and No history of chest pain, palpitation, orthopnea, cynosis, pedel edema Gyne: Regular Menses Resp: No cough, hemoptysis, asthma, recent chest infection, wheezing GI: +diarrhea, had removal of gallbladder 2017 Weight: remained stable Eyes: no blurring Memory: Good Diaphoresis: Not significant Skin: hives in the anterior neck, itchy M/S: muscle pain in thighs and the back of the neck Neuro: migraine headaches 2-3x/day Physical examination BP 102/60 Pulse 76 Ht 172.7 cm (5' 8) Wt 72.6 kg (160 lb) BMI 24.33 kg/m? GENERAL: Well nourished, well hydrated, in no distress and oriented x 3 COMMUNICATION: Hearing: nL; VOICE: normal EYES: no thyroid eye signs, KARELY, Fundi normal and cornea normal NECK: no visible nodules or goiter, no bruit, no tenderness and no adenopathies. Macular rash in the anterior neck THYROID: smooth, non-tender, 15 gram, firm and No palpable nodules Heart RRR with normal S1 and S2, no murmurs, no gallops, no JVD appreciated Lungs clear to auscultation Abdomen bowel sounds normoactive, no bruits, soft, non-tender, non-distended, without organomegaly or palpable masses, no tenderness to palpation EXTREMITIES: No clubbing, no edema, no cyanosis and normal nails NEURO: normal strength, no tremor and normal reflexes Previous Laboratory Results Component Latest Ref Rng AND Units 04/07/2013 07/15/2018 Protein, Total 6.3 - 8.0 g/dL 7.7 7.3 Albumin 3.9 - 4.9 g/dL 4.6 4.4 Calcium 8.5 - 10.2 mg/dL 9.6 9.3 Bilirubin, Total 0.2 - 1.3 mg/dL 0.1 0.3 Alkaline Phosphatase 32 - 117 U/L 95 59 AST 13 - 35 U/L 21 22 Glucose 74 - 99 mg/dL 67 78 BUN 7 - 21 mg/dL 13 16 Creatinine 0.58 - 0.96 mg/dL 0.55 (L) 0.65 Sodium 136 - 144 mmol/L 139 138 Potassium 3.7 - 5.1 mmol/L 3.7 4.0 Chloride 97 - 105 mmol/L 100 101 CO2 22 - 30 mmol/L 24 22 Anion Gap 9 - 18 mmol/L 15 15 ALT 7 - 38 U/L 15 13 eGFR- >60 >60 eGFR-All Other Races . >60 >60 TSH 0.400 - 5.500 uU/mL 2.900 1.720 T4 5.0 - 11.0 ug/dL 7.0 Vitamin D 25 Hydroxy 31.0 - 80.0 ng/mL 19.2 (L) 26.6 (L) Free T4 0.9 - 1.7 ng/dL 1.1 Impression/Recommendations 33 year old female comes to the clinic for evaluation of: ASSESSMENT/PLAN: 1. Malaise and fatigue - ICD9: 780.79, ICD10: R53.81, R53.83 (primary diagnosis) She has normal TFTs. Vitamin D mildly low, on replacement. No clinical suspicion for PCOS She describes tenderness in the posterior neck and thighs. I recommend she has evaluation for fibromyalgia Encouraged exercise 2. Vitamin D deficiency - ICD9: 268.9, ICD10: E55.9 On replacement. Taking OTC vit D 2,000 IU QD MD Juli Loving MD 09/08/2018 3:10 PM Signed I encourage exercise, start with 15 minutes per day Discuss the possibility of having Fibromyalgia with your PCP Referring Provider: HELDER CORDOVA [[id number]] Allergies As of Date: 09/08/2018 Noted Allergy Reaction IV DYE [Other] 01/07/2006 2 - Rash ZITHROMAX (AZITHROMYCIN) 01/07/2006 6 - Diarrhea Date Reviewed: 09/08/2018 Reviewed by: Juli Leary - Fully Assessed Reason for Visit: Thyroid Problem [110] Primary Visit Diagnosis:Malaise and fatigue [R53.81, R53.83] Other Visit Diagnosis:Vitamin D deficiency [E55.9] Order(s):THYROID PEROXIDASE ANTIBODY (AK,AV,EU,FV,HL,MAURISIO,MM,SP) [[id number]] Order #: [id number] Prescriptions as of 09/08/2018 Sig: CHOLECALCIFEROL (VITAMIN D3) * Take 1 capsule by mouth once * Problem List As Of Date 09/08/2018 Noted Resolved Supervision of normal first [Z34.00] INVALID FOR*12/25/2011 Supervision of other normal [Z34.80] INVALID FOR*11/13/2012 More... Breech presentation, antepartum [O32.1XX0] INVALID FOR*09/21/2012 More... Vitamin D deficiency [E55.9] INVALID FOR* Headache, unspecified headache type [R51] INVALID FOR* Paresthesias/numbness [R20.9] INVALID FOR* Hypothyroidism [E03.9] Other instructions from your clinician: I encourage exercise, start with 15 minutes per day Discuss the possibility of having Fibromyalgia with your PCP Visit Notes: >> Sameera Weems Nancie Sep 08, 2018 2:44 PM Status: Signed Pt here today per PCP for further evaluation of abnormal sx. Pt c/o: Hives on chest for the last 6 months on and off Migraines X 2-3 per months usually around cycle. Pain all over body from the time she wakes up - negative for Lupus Medications Discontinued During This Encounter fluticasone (FLONASE) 50 mcg/actuati* 1 Abdullahi* 2 09/24/2013 09/08/2018 Route: EACH NOSTRIL Sig: Use 2 Sprays in each nostril once daily. FOR ALLERGIC NASAL SX. Patient not taking: Reported on 09/08/2018 Disc: Reason for discontinue is not on file. oxybutynin ER (DITROPAN XL) 15 mg 24* 09/08/2018 Class: Historical Med Route: ORAL Sig: Take 15 mg by mouth once daily. Disc: Reason for discontinue is not on file. Disposition: Return if symptoms worsen or fail to improve. Follow-up and Disposition History Recorded Encounter Status:Closed by JULI MORELAND on 09/08/18 OPERATIVE REPORT Observed: 08/26/2018 Status: F Source: [place] 9:52 AM [facility] Medical Records Department [address] [place] [address] Operative Report 08/26/18 0949 MR#: [id number] Acct: [id number] Name: DENIA HERMAN Rep #: [id number] : 1985 33 From: Alisa Choi MD PCP: Diogo Bowen MD Status: REG [facility] Y Location: [place] [address] Problem List (1) Kidney stone Status: Acute Report of Operation Date of Procedure: 08/26/18 Pre-Operative Diagnosis: Right lower pole renal calculus Post-Operative Diagnosis: same Surgery/Procedure Performed:: Right renal extracorporeal shockwave lithotripsy Description of Surgical Findings:: stone not seen after 2300 shocks, procedure stopped. gambling floor supervisor: Alisa Choi Type of Anesthesia:: General Specimen's removed: none Estimated Blood Loss (mL): N/A Description of Procedure: The patient is a 33-year-old female with a right lower pole renal calculus identified on outpatient imaging. After discussing all the risks benefits and alternatives for treatment, she elected to proceed with extracorporal shockwave lithotripsy under general anesthesia. The patient was taken to the operating room and placed on the operating room table. Anesthesia monitored the head, neck, airway, IV access, and vital signs throughout the case. Once anesthesia was appropriately administered the patient was positioned and the stone was identified using fluoroscopic visualization. Once the stone was clearly seen, the lithotripter was aligned and 2300 shocks were applied to the stone. At this time, the stone was no longer able to be visualized on fluoroscopy. The decision was made to terminate the procedure. The patient was then awakened and taken to the recovery room in good condition. There were no complications during this procedure. Grafts/Implants Used: none - Complications none - Admit VTE Documentation VTE Present on Admission: Yes VTE Mechan Device Prophylaxis: SCD's VTE Pharm Prophylaxis ordered?: No Reason prophylaxis not ordered:: Treatment Not Indicated 08/26/18951 <Electronically signed by Alisa Choi MD> Date Alisa Choi MD CC: Diogo Bowen MD; Alisa Choi MD Signed DISCHARGE INSTRUCTION Observed: 08/26/2018 Status: F Source: [place] 8:43 AM [facility] Medical Records Department [address] [place] [address] Instructions for Home/Discharge Instructions 08/26/18837 MR#: [id number] Acct: [id number] Name: DENIA HERMAN Rep #: [id number] : 1985 33 From: Alisa Choi MD PCP: Diogo Bowen MD Status: REG [facility] Discharge Diet: No Restrictions Discharge Activity: May not drive while taking narcotic pain medications. May resume sexual activity in: No Restrictions Call your doctor if you observe: Fever of 101 or Higher, Inability to urinate, Shortness of breath, Chest pain, Calf discomfort, Uncontrolled pain Allergies/Adverse Reactions: Allergies No Known Allergies Allergy (Verified 08/19/18 08:04) Medications to take at Discharge multivitamin tablet 1 tab PO QDAY 02/16/18 Orders to be completed after discharge: Abdomen Single View [RAD] Location: None Selected Primary Care Physician: Diogo Bowen MD [Primary Care Provider] - Test Results: Test results from this visit will be discussed in further detail at your follow-up appointment, if applicable. Please Follow Up With: Alisa Choi MD When: 2-3 weeks 08/26/1843 <Electronically signed by Alisa Choi MD> Date Alisa Choi MD CC: Diogo Bowen MD ,URINE Collected: 08/26/2018 Status: F Source: [place] 7:10 AM [facility] TYPE CODE TESTS RESULT OUT OF REFERENCE UNITS RANGE LAB L400.8000 Negative Normal HCGUQUAL Negative Result Comment: Very dilute urine specimens, as indicated by a low specific gravity, may not contain small business representative levels of hCG. If is still suspected, a first morning urine specimen should be collected 48 hours later and tested. Performed By: #### L400.7600 #### [facility] [address] [place], [address] ABDOMEN SINGLE VIEW Observed: 08/10/2018 Status: F Source: [place] 5:05 PM [facility] Imaging Services [address] [place] [address] Abdomen Single View MR#: [id number] Acct: [id number] Name: DENIA HERMAN Rep #: [id number] : 1985 F 33 From: Nazario Herrera MD PCP: Diogo Bowen MD Status: REG CLI Study: Abdomen Single View Date of Exam: 08/10/18 Exam# [id number] Ordering Dr: Alisa Choi MD STUDY: X-RAY - ABDOMEN/PELVIS REASON FOR EXAM: Female, 33 years old. Right sided pain TECHNIQUE: 2 views COMPARISON: February 17, 2018 FINDINGS: There is a 6 mm calcific density projecting over the lower third of the right kidney. No similar findings on the left side. The bones and joints are normal. There is no bowel distention or free intraperitoneal air.. A rectangular area of low density is seen in the lower pelvis. It is slightly tilted to the right and most likely represents a tampon. RAD/Abdomen Single View IMPRESSION: A 6 mm calyceal calculus in the inferior pole of the right kidney. No intestinal obstruction. Electronically Signed: Nazario Herrera MD at 4:18 EDT Tel , Service support , CC: Diogo Bowen MD; Alisa Choi MD Police Guard: Signed PROGRESS Observed: 08/07/2018 Status: COMPLETED Source: [place] 5:53 PM [facility] REPOSITORY HNO ID: [id number] Author: Michelle Bush III Service: (none) Author Type: Physician Type: Progress Notes Filed: 08/07/2018 5:53 PM Note Text: Denia, Good news-the MRI of the brain and cervical spine do not show any lesions of multiple sclerosis. The images revealed totally normal structures without other pathology. Without evidence of pathology I recommend treating you with healthy diet and regular exercise. Try to manage stress well and make time for fun and relaxing activities. Let me know if you develop new or worse symptoms. Michelle Bush III, MD, [facility] CERVICAL SPINE Observed: 08/05/2018 Status: F Source: [place] WO/W IVCON 3:46 PM [facility] REPOSITORY * * *Final Report* * * DATE OF EXAM: Aug 05 2018 3:46PM [facility] 0298 - MRI CERVICAL SPINE WO/W IVCON / PROCEDURE REASON: Multiple sclerosis * * * * Physician Interpretation * * * * Examination performed: MRI of the brain and cervical spine without and with contrast. MQ: MRBWO_2 MR Contrast: Dotarem Contrast Dose (cc): 14ml Route of Administration: Intravenous Clinical indication: Skin sensation disturbance. Comparison: None. Findings: MRI brain: Acute Change: There is no evidence of restricted diffusion to suggest an acute infarct. Hemorrhage: No evidence of prior parenchymal hemorrhage on the gradient echo images. Mass Lesion/ Mass Effect: No evidence of an intracranial mass or extra-axial fluid collection. No significant mass effect. No abnormal enhancement. No abnormal enhancement following contrast administration. Chronic Change: The white matter is within normal limits of signal intensity for age. Parenchyma: No significant volume loss for age. The brain parenchyma is otherwise within normal limits of signal intensity and morphology. Ventricles: Normal caliber and morphology. Skull Base: Hypothalamic and pituitary region are grossly normal. Craniocervical junction is normal. No significant marrow replacement process. Vasculature: Major intracranial arterial structures, and dural venous sinuses show typical flow void, suggesting patency by spin echo criteria. Other: The visualized paranasal sinuses and mastoid air cells are clear. The orbits and extracranial soft tissues are unremarkable. MRI Cervical spine: Counting reference: Craniocervical junction. Anatomic Variants: None. Cervical soft tissues: The paraspinal soft tissues are within normal limits. Alignment: Alignment is anatomic. Craniocervical junction: Craniocervical junction is normal. Cord: The visualized cord is within normal limits of signal intensity and morphology. Bone marrow signal/fracture: No evidence of pathologic marrow infiltration. No evidence of prior fracture. Posterior elements are normal in morphology and alignment. No abnormal enhancement following contrast administration. C2-C3: Canal and foramina are patent. C3-C4: Canal and foramina are patent. C4-C5: Canal and foramina are patent. C5-C6: Canal and foramina are patent. C6-C7: Minimal disc osteophyte formation. C7-T1: Canal and foramina are patent. IMPRESSION: Overall unremarkable MRI of the brain and cervical spine. No significant white matter change or abnormal enhancement. Anatomic Variant: None. Assume 7 cervical vertebrae with counting from the craniocervical junction. Police Guard: PSCB Transcribe Date/Time: Aug 05 2018 4:33P Dictated by : TIBURCIO LANDEROS MD This examination was interpreted and the report reviewed and electronically signed by: TIBURCIO LANDEROS MD on Aug 05 2018 4:37PM EST [id number] MRI BRAIN WO/W Observed: 08/05/2018 Status: F [facility] REPOSITORY * * *Final Report* * * DATE OF EXAM: Aug 05 2018 3:46PM [facility] 0295 - MRI BRAIN WO/W IVCON / PROCEDURE REASON: multiple diagnoses * * * * Physician Interpretation * * * * Examination performed: MRI of the brain and cervical spine without and with contrast. MQ: MRBWO_2 MR Contrast: Dotarem Contrast Dose (cc): 14ml Route of Administration: Intravenous Clinical indication: Skin sensation disturbance. Comparison: None. Findings: MRI brain: Acute Change: There is no evidence of restricted diffusion to suggest an acute infarct. Hemorrhage: No evidence of prior parenchymal hemorrhage on the gradient echo images. Mass Lesion/ Mass Effect: No evidence of an intracranial mass or extra-axial fluid collection. No significant mass effect. No abnormal enhancement. No abnormal enhancement following contrast administration. Chronic Change: The white matter is within normal limits of signal intensity for age. Parenchyma: No significant volume loss for age. The brain parenchyma is otherwise within normal limits of signal intensity and morphology. Ventricles: Normal caliber and morphology. Skull Base: Hypothalamic and pituitary region are grossly normal. Craniocervical junction is normal. No significant marrow replacement process. Vasculature: Major intracranial arterial structures, and dural venous sinuses show typical flow void, suggesting patency by spin echo criteria. Other: The visualized paranasal sinuses and mastoid air cells are clear. The orbits and extracranial soft tissues are unremarkable. MRI Cervical spine: Counting reference: Craniocervical junction. Anatomic Variants: None. Cervical soft tissues: The paraspinal soft tissues are within normal limits. Alignment: Alignment is anatomic. Craniocervical junction: Craniocervical junction is normal. Cord: The visualized cord is within normal limits of signal intensity and morphology. Bone marrow signal/fracture: No evidence of pathologic marrow infiltration. No evidence of prior fracture. Posterior elements are normal in morphology and alignment. No abnormal enhancement following contrast administration. C2-C3: Canal and foramina are patent. C3-C4: Canal and foramina are patent. C4-C5: Canal and foramina are patent. C5-C6: Canal and foramina are patent. C6-C7: Minimal disc osteophyte formation. C7-T1: Canal and foramina are patent. IMPRESSION: Overall unremarkable MRI of the brain and cervical spine. No significant white matter change or abnormal enhancement. Anatomic Variant: None. Assume 7 cervical vertebrae with counting from the craniocervical junction. Police Guard: PSCB Transcribe Date/Time: Aug 05 2018 4:33P Dictated by : TIBURCIO LANDEROS MD This examination was interpreted and the report reviewed and electronically signed by: TIBURCIO LANDEROS MD on Aug 05 2018 4:37PM EST [id number] PROGRESS Observed: 08/05/2018 Status: COMPLETED Source: [place] 3:22 PM [facility] REPOSITORY HNO ID: [id number] Author: Jens Mccann (Rt) Service: (none) Author Type: Microsoft Access Developer Type: Progress Notes Filed: 08/05/2018 3:23 PM Note Text: Radiology Service Progress Note PATIENT NAME: Denia Herman DATE OF SERVICE: August 05, 2018 TIME: 3:22 PM PATIENT IDENTITY VERIFICATION COMPLETED USING TWO (2) METHODS: Patient confirmed name verbally and Date of . PATIENT GENDER DATA: Female. status: : No status: NO. PATIENT RELEVANT IMPLANT DATA REVIEWED: Yes CONTRAST INDUCED NEPHROPATHY RISK FACTORS: Not applicable CREATININE: Creatinine Date Value Ref Range Status 07/15/2018 0.65 0.58 - 0.96 mg/dL Final 04/07/2013 0.55 (L) 0.70 - 1.40 mg/dL Final 11/15/2011 0.61 (L) 0.70 - 1.40 mg/dL Final eGFR-All Other Races Date Value Ref Range Status 07/15/2018 >60 . Final Comment: eGFR (Estimated GFR) Units of measure: mL/min/1.73 meters squared eGFR is derived from the reexpressed MDRD Study equation using the following parameters: serum creatinine, age, gender and race. The creatinine assay has been calibrated to be traceable to IDMS. An eGFR <60 mL/min/1.73m2 for >3 months is consistent with chronic kidney disease. Refer to KDOQI guidelines for clinical interpretation. In patients with unstable renal function, e.g. those with acute kidney injury, the eGFR may not accurately reflect actual GFR. eGFR- Date Value Ref Range Status 07/15/2018 >60 Final P.O.C.T. RESULTS: N/A August 05, 2018 RADIOLOGIST NOTIFIED?: No ALLERGIES: Reviewed and unchanged CONTRAST ALLERGY: NO. PERIPHERAL IV ACCESS: Ambulatory: IV type: A peripheral IV was started in the Right antecubital site with a Angio cath: 22 gauge., Site assessment: Clean,Dry and Intact, Site disposition Discontinued RADIOLOGY DEPARTMENT: MR; Exam(s) Completed: Head: Multiple Sclerosis Spine: Cervical spine SIGNED BY: RT Siobhan August 05, 2018 3:22 PM PROGRESS Observed: 07/16/2018 Status: COMPLETED Source: [place] 7:30 PM [facility] [place] RE[facility]ITORY O ID: [id number] Author: Michelle Bush III Service: (none) Author Type: Physician Type: Progress Notes Filed: 07/16/2018 7:30 PM Note Text: Denia, The lab results look pretty good, except the vitamin D level is low. I have had patients mention symptoms similar to yours with vitamin D deficiency. I recommend starting [id number] vitamin D 2000 units daily point. Recheck vitamin D level in 3 months. We will see if this does help with the symptoms. Michelle Bush III, MD, FAAFP CBC AND DIFFERENTIAL Collected: 07/15/2018 Status: F Source: [place] 3:35 PM [facility] REPOSITORY TYPE CODE TESTS RESULT OUT OF REFERENCE UNITS RANGE LAB WBC 3.70-11.00 k/uL WBC 7.09 LAB RBC 3.90-5.20 m/uL RBC 4.59 LAB HGB 11.5-15.5 g/dL Hemoglobin 13.2 LAB HCT 36.0-46.0 % Hematocrit 41.9 LAB MCV 80.0-100.0 fL MCV 91.3 LAB MCH 26.0-34.0 pG MCH 28.8 LAB MCHC 30.5-36.0 g/dL MCHC 31.5 LAB RDWCV 11.5-15.0 % RDW-CV 14.7 LAB PLTCT 150-400 k/uL Platelet Count 304 LAB MPV 9.0-12.7 fL MPV 10.5 LAB ANEUT % Neut% 56.3 LAB AANEUT 1.45-7.50 k/uL Abs Neut 3.97 LAB ALYMP % Lymph% 29.6 LAB AALYMP 1.00-4.00 k/uL Abs Lymph 2.10 LAB AMONO % [place]% 7.6 LAB AAMONO <0.87 k/uL Abs [place] 0.54 LAB AEOS % Eosin% 5.9 LAB AAEOS <0.46 k/uL Abs Eosin 0.42 LAB ABASO % Baso% 0.6 LAB AABASO <0.11 k/uL Abs Baso 0.04 LAB AUNRBC 0 /100 WBC NRBCs 0.0 LAB ABNRBC <0.01 k/uL Absolute nRBC <0.01 LAB DTYP DTYPE Auto Diff Performed By: #### CBCDIF, WSR, VITD, CMP, TSH, FT4 #### [facility] [address] [place] [id number] SED RATE WESTERGREN Collected: 07/15/2018 Status: F Source: [place] 3:35 PM [facility] REPOSITORY TYPE CODE TESTS RESULT OUT OF REFERENCE UNITS RANGE LAB WSR 0-20 mm/hr Sed Rate Westergren 5 Performed By: #### CBCDIF, WSR, VITD, CMP, TSH, FT4 #### [facility] [address] [place] [address] VITAMIN D 25 HYDROXY Collected: 07/15/2018 Status: F Source: [place] 3:35 PM [facility] REPOSITORY TYPE CODE TESTS RESULT OUT OF REFERENCE UNITS RANGE LAB VITD 31.0-80.0 ng/mL Low Vitamin D 25 26.6 Hydroxy Result Comment: Classification of 25 [place] Vitamin D status: Insufficiency/Moderate Deficiency: < or = 30 ng/mL Sufficiency/Optimal Levels: 31 to 80 ng/mL Toxicity: > 100 ng/mL Test performed by chemiluminescent immunoassay. Performed By: #### CBCDIF, WSR, VITD, CMP, TSH, FT4 #### [facility] [address] [place] [address] COMP METABOLIC PANEL Collected: 07/15/2018 Status: F Source: [place] 3:35 PM [facility] REPOSITORY TYPE CODE TESTS RESULT OUT OF REFERENCE UNITS RANGE LAB TP 6.3-8.0 g/dL Protein, Total 7.3 LAB ALB 3.9-4.9 g/dL Albumin 4.4 LAB CA 8.5-10.2 mg/dL Calcium, Total 9.3 LAB TBIL 0.2-1.3 mg/dL Bilirubin, Total 0.3 LAB ALKP 32-117 U/L Alkaline Phosphatase 59 LAB AST 13-35 U/L AST 22 LAB GLU 74-99 mg/dL Glucose 78 Result Comment: The [place] Diabetes Association (ADA) provides guidance for cutoff values for fasting glucose and random glucose. The ADA defines fasting as no caloric intake for at least 8 hours. Fas ting plasma glucose results between 100 to 125 mg/dL indicate increased risk for diabetes (prediabetes). Fasting plasma glucose results greater than or equal to 126 mg/dL meet the criteria for diagnosis of diabetes. In the absence of unequivocal hyperglycemia, results should be confirmed by repeat testing. In a patient with classic symptoms of hyperglycemia or hyperglycemic crisis, random plasma glucose results greater than or equal to 200 mg/dL meet the criteria for diagnosis of diabetes. Reference: Standards of Medical Care in Diabetes 2016, [place] Diabetes Association. Diabetes Care. 2016.39(Suppl 1). LAB BUN 7-21 mg/dL BUN 16 LAB CRET 0.58-0.96 mg/dL Creatinine 0.65 LAB NA 136-144 mmol/L Sodium 138 LAB K 3.7-5.1 mmol/L Potassium 4.0 LAB CL 97-105 mmol/L Chloride 101 LAB CO2 22-30 mmol/L CO2 22 LAB AGAP 9-18 mmol/L Anion Gap 15 LAB ALT 7-38 U/L ALT 13 LAB GFRAA eGFR- Amer. >60 LAB GFRNAA . eGFR-All Other Races >60 Result Comment: eGFR (Estimated GFR) Units of measure: mL/min/1.73 meters squared eGFR is derived from the reexpressed MDRD Study equation using the following parameters: serum creatinine, age, gender and race. The creatinine assay has been calibrated to be traceable to IDMS. An eGFR <60 mL/min/1.73m2 for >3 months is consistent with chronic kidney disease. Refer to KDOQI guidelines for clinical interpretation. In patients with unstable renal function, e.g. those with acute kidney injury, the eGFR may not accurately reflect actual GFR. Performed By: #### CBCDIF, WSR, VITD, CMP, TSH, FT4 #### [facility] [address] [place], [place] [address] TSH Collected: 07/15/2018 Status: F Source: [place] 3:35 PM [facility] REPOSITORY TYPE CODE TESTS RESULT OUT OF RANGE REFERENCE UNITS LAB TSH 0.400-5.500 uU/mL TSH 1.720 Result Comment: If the patient is , TSH reference range varies by gestational period: First Trimester 0.100-2.500 uU/mL Second Trimester 0.200-3.000 uU/mL Third Trimester 0.300-3.000 uU/mL References: 1. Brizuela, David M, Senthil EK, et al. Management of Thyroid Dysfunction during and : An Endocrine Society Clinical Practice Guideline. J Clin Endocrinol Metab, 2012:97:5500-2487. 2. Ishan WARD. Overview of thyroid disease in . UpToDate. 2016. Accessed on April 19, 2016. Performed By: #### CBCDIF, WSR, VITD, CMP, TSH, FT4 #### [facility] [address] [place], [place] [address] FREE T4 Collected: 07/15/2018 Status: F Source: [place] 3:35 PM [facility] REPOSITORY TYPE CODE TESTS RESULT OUT OF RANGE REFERENCE UNITS LAB FT4 0.9-1.7 ng/dL Free T4 1.1 Performed By: #### CBCDIF, WSR, VITD, CMP, TSH, FT4 #### [facility] [address] [place], [place] [address] PROGRESS Observed: 07/15/2018 Status: COMPLETED Source: [place] 2:53 PM [facility] REPOSITORY HNO ID: [id number] Author: Michelle Bush III Service: (none) Author Type: Physician Type: Progress Notes Filed: 07/15/2018 7:00 PM Note Text: SUBJECTIVE: This is a 33 year old female that is here today for In Lenny generalized pain episodically. Whole body Internal Tremors but no outward tremors, legs get weak, forearms and fingers feel numb. At times she has severe pain post neck radiating to post head (not relieved by tylenol, advil). Episodic pain /tenderness R flank. Fleeting scotomata at night lasting 1-2 min. Sx can last for hours. zoloft did no benefit. At times face feels asleep, but she steeps well all night through. No imbalance. Episodic diarrhea. No head injury or concussion. Inflammatory marker 17 per pt. Tried cutting out bread w/o benefit. Another physician thought she had stress sx, but she does not feel excessively stresses, though she has had lots of stress. 4 children, including 1 with type 1 diabetes mellitus PAST MEDICAL HISTORY Diagnosis Date - Herniated disc - Migraine, unspecified, with intractable migraine, so stated, without mention of status migrainosus Migraine - Miscarriage 10/2011 - PMH - PAST MEDICAL HISTORY OF 2003 SEIZURE-LIKE STARING SPELLS - Vitamin D deficiency 04/08/2013 Current Outpatient Prescriptions on File Prior to Visit: fluticasone (FLONASE) 50 mcg/actuation nasal spray Use 2 Sprays in each nostril once daily. FOR ALLERGIC NASAL SX. No current facility-administered medications on file prior to visit. FAMILY HISTORY Problem Relation Age of Onset - Hypertension Mother - Hypertension Maternal Grandmother - Cancer Paternal Grandfather lung and colon cancer - Heart Maternal Aunt MVP Social History Substance Use Topics - Smoking status: Never Smoker - Smokeless tobacco: Never Used - Alcohol use No Comment: denies caffeine use BP 114/78 (BP Site: Left Arm, BP Position: Sitting, BP Cuff Size: Regular Adult) Pulse 75 Resp 16 Wt 69.9 kg (154 lb) LMP 07/14/2018 (Exact Date) BMI 24.12 kg/m? . OBJECTIVE: APPEARANCE Well appearing, alert, in no acute distress, well-hydrated, well nourished. EYES PERRLA, conjunctiva and sclera normal. and fundi normal NECK Supple, no adenopathy; thyroid symmetric, normal size, no bruits HEART RRR with normal S1 and S2, no murmurs, no gallops, no JVD appreciated LUNG clear to auscultation ABDOMEN , soft, non-tender, non-distended, without organomegaly or palpable masses, no tenderness to palpation NEURO Awake, alert and oriented x 3, Cranial nerves II-XII grossly intact, Reflexes symmetrical, Normal gait, No involuntary motions. and negative findings: speech normal, mental status intact, cranial nerves 2-12 intact, gait, including heel, toe, and tandem walking normal, Romberg negative, muscle tone normal, muscle strength normal, rapid alternating movements normal, finger to nose normal, reflexes normal and symmetric Appearance: well dressed well groomed, cooperative and pleasant Behavior: good eye contact Speech: fluent and coherent Mood: euthymic Affect: appropriate Perceptions: none Thought process: goal directed Thought Content: normal Intelligence level: normal Insight: good Judgment: good ASSESSMENT: Unusual symptoms with normal physical exam?rule out multiple sclerosis PLAN: labs as ordered MRI brain and cervical spine to evaluate for MS observe for additional unusual symptoms 30 minute visit with greater than 50% obtaining history, exam, discussing need for additional testing with rationale. HAMILTON Nicholson MD, III MD CNOV Observed: 07/15/2018 Status: COMPLETED Source: [place] 2:40 PM [facility] REPOSITORY Office Visit (FAMPWS) DENIA HERMAN ([id number]) 1985 F [facility] Date Time Provider Department 07/15/18 2:40 PM MICHELLE BUSH IIIWS During your visit today, we recorded the following information about you: Pulse Respiration Blood pressure Weight 75/minute 16/minute 114/78 69.9 kg Last Period 07/14/18 Michelle Bush III MD 07/15/2018 7:00 PM Signed SUBJECTIVE: This is a 33 year old female that is here today for In Lenny generalized pain episodically. Whole body Internal Tremors but no outward tremors, legs get weak, forearms and fingers feel numb. At times she has severe pain post neck radiating to post head (not relieved by tylenol, advil). Episodic pain /tenderness R flank. Fleeting scotomata at night lasting 1-2 min. Sx can last for hours. zoloft did no benefit. At times face feels asleep, but she steeps well all night through. No imbalance. Episodic diarrhea. No head injury or concussion. Inflammatory marker 17 per pt. Tried cutting out bread w/o benefit. Another physician thought she had stress sx, but she does not feel excessively stresses, though she has had lots of stress. 4 children, including 1 with type 1 diabetes mellitus PAST MEDICAL HISTORY Diagnosis Date - Herniated disc - Migraine, unspecified, with intractable migraine, so stated, without mention of status migrainosus Migraine - Miscarriage 10/2011 - PMH - PAST MEDICAL HISTORY OF 2003 SEIZURE-LIKE STARING SPELLS - Vitamin D deficiency 04/08/2013 Current Outpatient Prescriptions on File Prior to Visit: fluticasone (FLONASE) 50 mcg/actuation nasal spray Use 2 Sprays in each nostril once daily. FOR ALLERGIC NASAL SX. No current facility-administered medications on file prior to visit. FAMILY HISTORY Problem Relation Age of Onset - Hypertension Mother - Hypertension Maternal Grandmother - Cancer Paternal Grandfather lung and colon cancer - Heart Maternal Aunt MVP Social History Substance Use Topics - Smoking status: Never Smoker - Smokeless tobacco: Never Used - Alcohol use No Comment: denies caffeine use BP 114/78 (BP Site: Left Arm, BP Position: Sitting, BP Cuff Size: Regular Adult) Pulse 75 Resp 16 Wt 69.9 kg (154 lb) LMP 07/14/2018 (Exact Date) BMI 24.12 kg/m? . OBJECTIVE: APPEARANCE Well appearing, alert, in no acute distress, well- hydrated, well nourished. EYES PERRLA, conjunctiva and sclera normal. and fundi normal NECK Supple, no adenopathy; thyroid symmetric, normal size, no bruits HEART RRR with normal S1 and S2, no murmurs, no gallops, no JVD appreciated LUNG clear to auscultation ABDOMEN , soft, non-tender, non-distended, without organomegaly or palpable masses, no tenderness to palpation NEURO Awake, alert and oriented x 3, Cranial nerves II-XII grossly intact, Reflexes symmetrical, Normal gait, No involuntary motions. and negative findings: speech normal, mental status intact, cranial nerves 2-12 intact, gait, including heel, toe, and tandem walking normal, Romberg negative, muscle tone normal, muscle strength normal, rapid alternating movements normal, finger to nose normal, reflexes normal and symmetric Appearance: well dressed well groomed, cooperative and pleasant Behavior: good eye contact Speech: fluent and coherent Mood: euthymic Affect: appropriate Perceptions: none Thought process: goal directed Thought Content: normal Intelligence level: normal Insight: good Judgment: good ASSESSMENT: Unusual symptoms with normal physical exam?rule out multiple sclerosis PLAN: labs as ordered MRI brain and cervical spine to evaluate for MS observe for additional unusual symptoms 30 minute visit with greater than 50% obtaining history, exam, discussing need for additional testing with rationale. HAMILTON Nicholson MD, III MD Frank A Cebul, III MD 07/15/2018 3:15 PM Signed PLAN: labs as ordered MRI brain and cervical spine to evaluate for MS observe for additional unusual symptoms Michelle Bush III MD Referring Provider: SELF [[id number]] Allergies As of Date: 07/15/2018 Noted Allergy Reaction IV DYE [Other] 01/07/2006 2 - Rash ZITHROMAX (AZITHROMYCIN) 01/07/2006 6 - Diarrhea Date Reviewed: 07/15/2018 Reviewed by: Sarah Aleman LPN - Fully Assessed Reason for Visit: Leg Weakness [1329] Cmt: arms tingling, tremors before AND after sleep, Sx ~ 6 months Primary Visit Diagnosis:Headache, unspecified headache type [R51] Other Visit Diagnoses:Paresthesias/numbness [R20.9] Vitamin D deficiency [E55.9] Hypothyroidism, acquired [E03.9] Other symptoms and signs involving the nervous system [R29.818] Multiple sclerosis (HCC) [G35] Order(s):CBC + DIFF [SQCBCDIF] Order #: [id number] FUTURE COMP METABOLIC PANEL [SQCMP] Order #: [id number] FUTURE TSH BLD [SQTSH] Order #: [id number] FUTURE T4 FREE/FREE THYROX [SQFT4] Order #: [id number] FUTURE SED RATE WESTERGREN [SQWSR] Order #: [id number] FUTURE VITAMIN D 25 HYDROXY [SQVITD] Order #: [id number] FUTURE MRI BRAIN WO/W IVCON [[id number]] Order #: [id number] FUTURE iv contrast (will be provided with radiology test)MRI Brain Inject, intravenously, once for 1 dose.No IV access, insert saline lock prior to beginning of sedation, infusion, injection of imaging exam.Discontinue saline lock post exam. If Pt. has a central line or IVAD, may access for administration according to line specific nursing protocol.Once exam is complete flush line and de- access according to line specific nursing protocol in the MR contrast administration guidelines linkDisp: 1 EachRfl: 0 MRI CERVICAL SPINE WO/W IVCON [[id number]] Order #: [id number] FUTURE iv contrast (will be provided with radiology test)MRI CSP Inject, intravenously, once for 1 dose. No IV access, insert saline lock prior to the beginning of sedation, infusion, injection of imaging exam. Discontinue saline lock post exam. If Pt. has a central line or IVAD, may access for administration according to line specific nursing protocol. Once exam is complete flush line and de- access according to line specific nursing protocol in the MR contrast administration guidelines link.Disp: 1 EachRfl: 0 Prescriptions as of 07/15/2018 Sig: OXYBUTYNIN CHLORIDE ER 15 MG * Take 15 mg by mouth once marcie* IV CONTRAST (RADIOLOGY PROCED* MRI Brain Inject, intravenous* IV CONTRAST (RADIOLOGY PROCED* MRI CSP Inject, intravenousl* FLUTICASONE 50 MCG/ACTUATION * Use 2 Sprays in each nostril * Problem List As Of Date 07/15/2018 Noted Resolved Supervision of normal first [Z34.00] INVALID FOR*12/25/2011 Supervision of other normal [Z34.80] INVALID FOR*11/13/2012 More... Breech presentation, antepartum [O32.1XX0] INVALID FOR*09/21/2012 More... Vitamin D deficiency [E55.9] INVALID FOR* Headache, unspecified headache type [R51] INVALID FOR* Paresthesias/numbness [R20.9] INVALID FOR* Other instructions from your clinician: PLAN: labs as ordered MRI brain and cervical spine to evaluate for MS observe for additional unusual symptoms Michelle Bush III MD Prescriptions ordered this encounter Disp Refills Start End IV CONTRAST (RADIOLOGY PROCEDURE) 1 Ea* 0 07/15/2018 07/16/2018 Class: In Office Sig: MRI Brain Inject, intravenously, once for 1 dose.No IV access, insert saline lock prior to beginning of sedation, infusion, injection of imaging exam.Discontinue saline lock post exam. If Pt. has a central line or IVAD, may access for administration according to line specific nursing protocol.Once exam is complete flush line and de-access according to line specific nursing protocol in the MR contrast administration guidelines link IV CONTRAST (RADIOLOGY PROCEDURE) 1 Ea* 0 07/15/2018 07/16/2018 Class: In Office Sig: MRI CSP Inject, intravenously, once for 1 dose. No IV access, insert saline lock prior to the beginning of sedation, infusion, injection of imaging exam. Discontinue saline lock post exam. If Pt. has a central line or IVAD, may access for administration according to line specific nursing protocol. Once exam is complete flush line and de-access according to line specific nursing protocol in the MR contrast administration guidelines link. Encounter Status:Closed by MICHELLE BUSH III, MD on 07/15/18 INTERNAL MEDICINE Observed: 06/09/2018 Status: F Source: [place] OFFICE VISIT 2:04 PM [facility] [address] [place] [address] [place] [address] OFFICE VISIT Date of Service: 06/09/18 MR#: [id number] Acct: [id number] Name: DENIA HERMAN Rep #: [id number] : 1985 Provider: Diogo Bowen MD Age/Sex: 33/F Location: [facility] Status: Signed Intake Vital Signs06/09/18 Height 5 ft 7 in Intake Visit Reasons: 1 M FU Chief Complaint: 1 month fu Is patient in pain?: No Allergies No Known Allergies Allergy (Verified 05/12/18 14:10) Medications multivitamin tablet 1 tab PO QDAY 02/16/18 [History Confirmed 05/12/18] sertraline 25 mg tablet 37.5 mg PO QDAY #90 tab 06/09/18 [Rx Confirmed 06/09/18] Is last menstrual period known: Yes PFSH Medical History Diarrhea (Acute) Nausea (Acute) Abdominal pain (Acute) Kidney stone (Acute) Anxiety (Chronic) Hypothyroidism (Acute) Surgical History S/P surgical removal of pilonidal cyst (Acute) S/P nasal septoplasty (Acute) S/P tonsillectomy and adenoidectomy (Acute) S/P laparoscopic cholecystectomy (Acute) Family History Mother No problems noted. Social History Smoking Status: Never smoker second hand exposure: No alcohol intake: never substance use type: does not use caffeine: No what type of physical activity do you participate in: none frequency: does not exercise seatbelt use: always HPI HPI Chief Complaint: 1 month fu Details: DENIA EHRMAN, is a 33yo F who presents to the office today for follow-up. She was recently started on antianxiety medication and has done well so far. She reports tolerating 25 mg better than 50. And is currently now on 25 mg of Zoloft daily. She denies any concerns. ROS Const Constitutional: No weight change, body ache, chills, fatigue, sleep problems, fever(s), change in appetite, snoring, weakness, frequent falls, headache(s) or excessive sweating Eyes Eyes: No change in vision, eye pain, light sensitivity or blurry vision ENT ENT: No headache(s), abnormal hearing, ear pain, tinnitus, nasal congestion, sore throat or neck pain Resp Respiratory: No snoring, cough, shortness of breath or wheezing Cardio Cardiology: No excessive sweating, chest pain at rest, chest pain with exertion, shortness of breath, dyspnea on exertion, palpitations, orthopnea or lightheadedness Gastro GI: No abdominal pain, change in bowel habits, constipation, diarrhea, vomiting, nausea/dyspepsia or cramping Genitourinary-Female: No burning urination, painful urination, urinary incontinence, urinary frequency, abnormal vaginal bleeding, pelvic pain or other Musc Musculoskeletal: No neck pain, abnormal walking, joint pain, back pain, limited range of motion, numbness, tingling or muscle weakness Skin Skin: No redness, dry skin, itching, lesions, wounds or rash Neuro Neurology: No weakness, frequent falls, headache(s), abnormal hearing, abnormal walking, numbness, tingling, abnormal speech, dizziness or memory loss Psych Psychiatric: No change in appetite, No memory loss, No anxiety, No depression, No Thoughts of harming yourself/Others Endo Endocrine: No fatigue, excessive sweating, cold intolerance, increased thirst/drinking, heat intolerance, flushing or increased hunger Aller/Imm Allergy/Immunologic: No wheezing, itchy eyes, hives or seasonal allergy symptoms Murali/Lymp Hematologic/Lymphatic: No easy bleeding, easy bruising or enlarged lymph nodes Exam Const General: cooperative, no acute distress Orientation: alert, awake, oriented x3 HENMT Head: atraumatic, normocephalic Ears: hearing grossly normal bilaterally Resp Effort AND Inspection: normal respiratory effort, able to speak in complete sentences Auscultation: Bilateral: Clear to Auscultation Cardio Rate: regular rate Rhythm: regular rhythm Heart Sounds: S1 normal, S2 normal GI Palpation: soft, no hepatosplenomegaly Musc Musculoskeletal: No muscle weakness Neuro General: alert, awake, oriented x3, moves all extremities, CN's II-XI intact bilaterally Extrem General: no clubbing, cyanosis or edema Psych Appearance: grossly normal Mood: anxious mood Affect: normal affect Assessment AND Plan 1. Anxiety F41.9 Plan Improved. Increase Zoloft to 37.5 mg daily. Okay to back down to 25mg if not very tolerant of this dose. Follow-up in 2 months. 2. OAB (overactive bladder) N32.81 Plan Stable. Continue follow-up with UroGYN. This note was generated with [employer] dictation software. It may contain incorrect words, spelling, and punctuation that were not noted in checking the note before signing. Plan Detail Other Medications Changed: Coding Level of Care Code Off vis,est,level 3 Diagnoses Anxiety F41.9 OAB (overactive bladder) N32.81 06/09/18 1404 <Electronically signed by Diogo Bowen MD> Date Diogo Bowen MD Cosigner Signature: Date (if applicable) CC: US TRANSVAGINAL NON OB Observed: 06/03/2018 Status: F Source: [place] 8:30 AM [facility] REPOSITORY ORIGINAL US PELVIS NON-OB TRANSABDOMINAL AND TRANSVAGINAL Clinical Statement: Hypertrophy of uterus. Follow-up. Comparison: 04/16/2018. FINDINGS: The anteverted uterus is 8.2 x 4.2 x 8.2 cm and has normal echotexture. No myometrial mass is seen. The endometrial double wall thickness is 11 mm transvaginally which is normal. No endometrial polyp or other intrauterine abnormality is visualized. The ovaries are normal in size and echogenicity with subcentimeter follicles. The RIGHT ovary measures 2.7 x 1.4 x 2.1 cm and the LEFT ovary 3.1 x 1.8 x 2.4 cm. There is also a 2 cm dominant follicle in the LEFT ovary. There is positive doppler flow to both ovaries. There is no free pelvic fluid. IMPRESSION: Normal uterus and ovaries. I have personally reviewed the images of this examination and agree with the resident's findings and interpretation. Interpreted By: Saw Restrepo MD Preliminary Report By: Tammy Yu DO Electronically Signed By: Saw Restrepo MD Dictated Date: 06/03/2018 12:00:27 PM Prelim Date: 06/03/2018 3:09:59 PM Sign Date: 06/03/2018 3:36:31 PM INTERNAL MEDICINE Observed: 05/18/2018 Status: F Source: [place] OFFICE VISIT 1:23 PM [facility] [address] [place] [address] OFFICE VISIT Date of Service: 05/12/18 MR#: [id number] Acct: [id number] Name: DENIA HERMAN Rep #: [id number] : 1985 Provider: Diogo Bowen MD Age/Sex: 33/F Location: [facility] [place] Status: Signed Intake Vital Signs05/12/18 Height 5 ft 7 in 05/12/18 Weight: 160 lb 05/12/18 Body Mass Index (BMI) 25.0 05/12/18 Blood Pressure 107/68 Intake Visit Reasons: EST CARE Chief Complaint: Weakness AND tremors at night Is patient in pain?: No Allergies No Known Allergies Allergy (Verified 05/12/18 14:10) Medications multivitamin tablet 1 tab PO QDAY 02/16/18 [History Confirmed 05/12/18] oxybutynin chloride ER 10 mg tablet,extended release 24 hr 10 mg PO QDAY 05/12/18 [History Confirmed 05/12/18] sertraline 50 mg tablet 50 mg PO QDAY #60 tab 05/12/18 [Rx Confirmed 05/12/18] PFSH Medical History Diarrhea (Acute) Nausea (Acute) Abdominal pain (Acute) Kidney stone (Acute) Anxiety (Acute) Hypothyroidism (Acute) Surgical History S/P surgical removal of pilonidal cyst (Acute) S/P nasal septoplasty (Acute) S/P tonsillectomy and adenoidectomy (Acute) S/P laparoscopic cholecystectomy (Acute) Family History Mother No problems noted. Social History Smoking Status: Never smoker second hand exposure: No alcohol intake: never substance use type: does not use caffeine: No what type of physical activity do you participate in: none frequency: does not exercise seatbelt use: always HPI HPI Chief Complaint: Weakness AND tremors at night Details: DENIA HERMAN, is a 33yo who presents to the office today to establish care. She also has some concerns. She has had some recent extensive workup for concerns about weakness and tremors/anxiety which is predominantly at night. Symptoms have been ongoing for the past 6 months. Symptoms are said to be worse during high stress periods. She denies any prior history of depression anxiety however does admit to being under a lot of stress and anxiety lately surrounding her daughter and other life activities. She has noted improvement in the symptoms with rest and vacation. ROS Const Constitutional: Positive for weakness; no chills, fatigue, fever(s), frequent falls, malaise, sleep problems or change in appetite Eyes Eyes: No blurry vision, change in vision, double vision, discharge or visual disturbances ENT ENT: No abnormal hearing, ear pain, ear pressure, tinnitus or dizziness/vertigo Resp Respiratory: No cough, shortness of breath or wheezing Cardio Cardiology: No chest pain at rest, chest pain with exertion, shortness of breath, dyspnea on exertion, generalized swelling, irregular heart rhythm, lightheadedness, orthopnea, fast heart rate or palpitations Gastro GI: No abdominal pain, change in bowel habits, constipation, diarrhea, nausea/dyspepsia or vomiting Genitourinary-Female: No difficulty urinating, burning urination, painful urination, urinary incontinence, urinary frequency, urinary urgency, urinary hesitancy, urinary retention, Frequent nighttime urination/ nocturia, sexual problems, genital lesions, abnormal vaginal bleeding, pelvic pain, vaginal dryness, vaginal odor or Vaginal Itching Musc Musculoskeletal: No joint pain, back pain, joint swelling, limited range of motion, muscle weakness, numbness or tingling Skin Skin: No change in skin color, itching, rash or wounds Breast Breast: No breast lump or breast pain Neuro Neurology: Positive for weakness and tremor(s); no frequent falls, abnormal hearing, numbness, tingling, unsteady gait/balance, dizziness, loss of vision, memory loss or visual disturbances Psych Psychiatric: No memory loss, Positive for anxiety, No change in appetite, No depression, No Thoughts of harming yourself/Others Endo Endocrine: Positive for increased urination; no fatigue, heat intolerance, increased thirst/drinking or increased hunger Aller/Imm Allergy/Immunologic: No wheezing, itchy eyes or seasonal allergy symptoms Murali/Lymp Hematologic/Lymphatic: No easy bleeding, easy bruising or enlarged lymph nodes Exam Const General: cooperative, no acute distress Orientation: alert, awake, oriented x3 HENMT Head: atraumatic, normocephalic Ears: hearing grossly normal bilaterally Resp Effort AND Inspection: normal respiratory effort, able to speak in complete sentences Auscultation: Bilateral: Clear to Auscultation Cardio Rate: regular rate Rhythm: regular rhythm Heart Sounds: S1 normal, S2 normal GI Palpation: soft, no hepatosplenomegaly Musc Musculoskeletal: No muscle weakness Neuro General: alert, awake, oriented x3, moves all extremities, CN's II-XI intact bilaterally Extrem General: no clubbing, cyanosis or edema Psych Appearance: grossly normal Mood: anxious mood Affect: normal affect Assessment AND Plan 1. Anxiety F41.9 Plan I believe most of her symptoms might be due to her underlying anxiety and increased stress. Extensive workup done in the past without any significant abnormality. Patient now open to going on a trial of Zoloft. Start at 25 mg daily. Increase to 50 mg after 2 weeks. Follow-up in 1 month. She may also benefit from cognitive behavioral therapy. Will follow. 2. OAB (overactive bladder) N32.81 Plan Follows up with urogynecology. Currently on oxybutynin. Will follow. This note was generated with [employer] dictation software. It may contain incorrect words, spelling, and punctuation that were not noted in checking the note before signing. Plan Detail Other Medications New: Discontinued: ciprofloxacin administer dose 2 hrs before/6 hrs after [id number] mg PO BID Soledad Zimmerly ry products/calcium/zinc/iron-containing products Disconti nued Reason: Pt no longer taking Follow Up 1 Month Coding Level of Care Code Off vis,new,level 3 Diagnoses Anxiety F41.9 OAB (overactive bladder) N32.81 05/18/18 1323 <Electronically signed by Diogo Bowen MD> Date Diogo Bowen MD Cosigner Signature: Date (if applicable) CC: US TRANSVAGINAL NON OB Observed: 04/16/2018 Status: F Source: [place] 9:30 AM [facility] REPOSITORY ORIGINAL US TRANSVAGINAL NON OB CLINICAL INDICATION: PELVIC, PERINEAL PAIN COMPARISON: None FINDINGS: UTERUS: 8.2 x 5.2 x 7.4 cm, anteverted Myometrium: Homogeneous Endometrium: 19 mm. There is an isoechoic ovoid structure measuring 0.8 x 0.4 x 0.3 cm within the anterior uterus, likely representing a polyp. Cervix: There is a dystrophic calcification within the cervix. Free fluid: Small amount of free fluid is noted within the cul-de-sac which is likely physiologic. OVARIES: Right: 3.2 x 2.2 x 2.7 cm. Doppler blood flow demonstrated. Small follicles present. Left: 2.4 x 1.3 x 2.3 cm. Doppler blood flow demonstrated. Small follicles present. No adnexal mass. IMPRESSION: There is thickening of the endometrium and an endometrial polyp is noted. Recommend further evaluation by gynecology. Interpreted By: Yennifer Lewis MD Preliminary Report By: Yennifer Lewis MD Electronically Signed By: Yennifer Lewis MD Dictated Date: 04/16/2018 12:14:25 PM Prelim Date: 04/16/2018 12:14:25 PM Sign Date: 04/16/2018 12:19:48 PM BASIC METABOLIC Collected: 04/03/2018 Status: F Source: [place] PROFILE (BMP) 10:19 AM [facility]POS[facility] TYPE CODE TESTS RESULT OUT OF RANGE REFERENCE UNITS LAB L501.0100 74-106 mg/dL Normal GLU 78 Result Comment: Please note revised GLUCOSE reference range effective 2017. LAB L501.1000 7-18 mg/dL Normal BUN 14 LAB L501.1100 0.55-1.02 mg/dL Normal CREAT,SERUM 0.67 Result Comment: The validity of the calculated GFR AND GFRAA in patients over 70 years has not been determined. Clinical correlation is essential. LAB L501.1110 >60 mL/min Normal EST GFR 107 Result Comment: Non- GFR Calc LAB L501.1115 >60 mL/min Normal EST GFR - AA 130 Result Comment: GFR Calc LAB L501.1300 10-20 RATIO High BUN/CRE 20.9 LAB L501.2200 8.5-10.1 mg/dL CA Normal 8.7 LAB L501.5300 136-145 mmol/L NA Normal 138 LAB L501.5600 3.5-5.1 mmol/L K Normal 3.7 LAB L501.5900 98-107 mmol/L CL Normal 102 LAB L501.6100 21.0-32.0 mmol/L Normal CO2 27.0 LAB L501.6200 5-15 Normal GAP 9 Performed By: #### L500.2500 #### [facility] [address] [place], [address] URINALYSIS, COMPLETE Collected: 04/03/2018 Status: F Source: [place] 10:19 AM [facility] REPOS[facility] Order Comment: How was Urine Obtained? CLEAN CATCH TYPE CODE TESTS RESULT OUT OF RANGE REFERENCE UNITS LAB L400.3000 Yellow COLOR Normal Yellow LAB L400.3050 Clear Normal CLARITY Clear LAB L400.3200 Normal mg/dl Normal GLUCOSE, UR Normal LAB L400.3300 Negative mg/dL Normal BILIRUBIN URINE Negative LAB L400.3400 Negative mg/dl Normal KETONE UR Negative LAB L400.3465 1.002-1.030 Normal SP.GR. DIPSTX 1.010 LAB L400.3550 5.0 - 8.0 pH UR Normal 6.0 LAB L400.3600 Negative mg/dl PROT Normal DIPSTX Negative LAB L400.3700 Normal mg/dl Normal UROBILI Normal LAB L400.3750 Negative Normal NITRITE UR Negative LAB L400.3780 Negative /ul High 25 OCCULT BLOOD-UR LAB L400.3800 Negative /ul High LEUK 25 ESTERASE LAB L400.4050 0-5 /hpf WBC Normal 0-5 SEEN LAB L400.4100 0-5 /hpf Normal RBC-UA 0-5 SEEN LAB L400.4150 5-10 /hpf SQUAM Normal EPI 0-5 SEEN LAB L400.4300 None Seen /hpf 0 Normal BACTERIA SEEN LAB L400.4350 <or=2+ /hpf 0 Normal MUCUS, URINE SEEN Performed By: #### L400.0001 #### [facility] [address] [place], [address] OSMOLALITY, SERUM Collected: 04/03/2018 Status: F Source: [place] 10:19 AM [facility]POS[facility]ORY TYPE CODE TESTS RESULT OUT OF RANGE REFERENCE UNITS LAB L501.7300 275-295 mOsm/KG Normal 284 OSMOLALITY,S ER Performed By: #### L501.7300 #### [facility] [address] [place], [address] OSMOLALITY, URINE Collected: 04/03/2018 Status: F Source: [place] 10:19 AM [facility] TYPE CODE TESTS RESULT OUT OF RANGE REFERENCE UNITS LAB L501.7400 mOsm/KG Normal 417 OSMOLALITY,U R Result Comment: OSMOLALITY URINE REFERENCE INTERVALS 24-hour Urine 300 - 900 mOsm/kg Random Urine 50 - 1400 mOsm/kg After 12 Hr fluid restriction >850 mOsm/kg Performed By: #### L501.7400 #### [facility] [address] [place], [address] Observed: 04/03/2018 Status: F Source: [place] CULTURE, URINE 10:19 AM [facility] Urine Culture Culture exhibits no growth. Performed By: #### M100.0650 #### [facility] [address] [place], [address] RENIN/ALDOSTERONE ACTIVITY Collected: Status: F Source: [place] 04/03/2018 10:19 AM [facility] TYPE CODE TESTS RESULT OUT OF RANGE REFERENCE UNITS LAB L3300.1100 0.0-30.0 ng/dL Normal ALDOSTERON 4374 29.7 Result Comment: This test was developed and its performance characteristics determined by [employer]. It has not been cleared or approved by the Food and Drug Administration. LAB L3400.4000 0.167-5.380 ng/mL/hr Normal RENIN,PL 2006 0.961 Result Comment: This test was developed and its performance characteristics determined by [facility] It has not been cleared or approved by the Food and Drug Administration. Performed By: #### L3300.1050, L3300.6750 #### [facility] (refer to report for specific site) refer to report for address and phone number THYROID ANTIBODIES Collected: 04/03/2018 Status: F Source: [place] 10:19 AM [facility] TYPE CODE TESTS RESULT OUT OF RANGE REFERENCE UNITS LAB L3300.6900 0-34 IU/mL Normal TPO AB 9 6676 LAB L3300.7027 0.0-0.9 IU/mL Normal TG AB < 1.0 Result Comment: Thyroglobulin Antibody measured by MDCapsule Methodology Performed at: BN - [facility] [address] [id number] Salesperson Men'S Hats: Freddy Huertas MD, Phone: [phone] Performed at: [facility] [address] [id number] Salesperson Men'S Hats: Ja Myers PhD, Phone: [phone] Performed By: #### L3300.1050, L3300.6750 #### [facility] (refer to report for specific site) refer to report for address and phone number MISCELLANEOUS LAB Collected: 04/03/2018 Status: F Source: [place] PROCEDURE 6:00 AM [facility] Order Comment: Comments: TOTAL VOLUME FOR 24 HOUR URINE Test(s) Ordered: TOTAL VOLUME FOR 24 HOUR URINE TYPE CODE TESTS RESULT OUT OF RANGE REFERENCE UNITS LAB L801.1541 Normal [facility] LAB TEST Result Comment: 1450 mL = volume/24 hour urine Performed By: #### L801.1541 #### [facility] [address] [place], [address] L/S SPINE MIN 4 Observed: 04/01/2018 Status: F Source: [place] VIEWS 9:14 AM [facility] Imaging Services [address] [facility] [place] [address] L/S Spine Min 4 Views MR#: [id number] Acct: [id number] Name: BATSHEVADENIA J Rep #: [id number] : 1985 F 33 From: Neil Fowler PCP: Stella Bustamante DO Status: REG CLI Study: L/S Spine Min 4 Views Date of Exam: 04/01/18 Exam# [id number] Ordering Dr: Ramirez Soni DO STUDY: X-RAY - LUMBAR SPINE REASON FOR EXAM: Female, 33 years old. Brain TECHNIQUE: 5 view(s) of the lumbar spine were obtained. COMPARISON: None FINDINGS: Normal lumbar lordosis. There is no substantial scoliosis. There is a normal alignment of the vertebrae. Normal vertebral bodies and endplates. Normal disc space heights. The soft tissue structures are unremarkable. RAD/L/S Spine Min 4 Views IMPRESSION: Normal x-ray examination of the lumbar spine. Electronically Signed: Neil Fowler DO at 21:41 EDT , Service support , CC: Stella Bustamante DO; Ramirez Soni DO Police Guard: Signed COMPREHENSIVE METABOLIC Collected: 03/19/2018 Status: F Source: [facility] 6:12 PM [facility] TYPE CODE TESTS RESULT OUT OF RANGE REFERENCE UNITS LAB L501.0100 74-106 mg/dL Normal GLU 79 Result Comment: Please note revised GLUCOSE reference range effective 2017. LAB L501.1000 7-18 mg/dL Normal BUN 13 LAB L501.1100 0.55-1.02 mg/dL Normal CREAT,SERUM 0.60 Result Comment: The validity of the calculated GFR AND GFRAA in patients over 70 years has not been determined. Clinical correlation is essential. LAB L501.1110 >60 mL/min Normal EST GFR 122 Result Comment: Non- GFR Calc LAB L501.1115 >60 mL/min Normal EST GFR - AA 148 Result Comment: GFR Calc LAB L501.1300 10-20 RATIO High BUN/CRE 21.8 LAB L501.1500 6.4-8.2 g/dL T Normal PROT 7.7 LAB L501.1800 3.2-5.0 g/dL Normal ALB 4.1 LAB L501.1950 2.2-4.2 g/dL Normal GLOB 3.6 LAB L501.2000 0.9-2.4 RATIO Normal A/G 1.1 LAB L501.2200 8.5-10.1 mg/dL CA Normal 9.1 LAB L501.4100 15-37 U/L Low AST 11 LAB L501.4305 45-117 U/L Normal ALK P 72 LAB L501.4405 13-56 U/L Normal ALT 17 LAB L501.4600 0.20-1.00 mg/dL T Normal BILI 0.20 LAB L501.5300 136-145 mmol/L NA Normal 139 LAB L501.5600 3.5-5.1 mmol/L Low K 3.4 LAB L501.5900 98-107 mmol/L CL Normal 104 LAB L501.6100 21.0-32.0 mmol/L Normal CO2 24.0 LAB L501.6200 5-15 Normal GAP 11 Performed By: #### L500.4050 #### [facility] [address] [facility] [place], [address] OSMOLALITY, SERUM Collected: 03/19/2018 Status: F Source: [place] 6:12 PM [facility] TYPE CODE TESTS RESULT OUT OF RANGE REFERENCE UNITS LAB L501.7300 275-295 mOsm/KG Normal 286 OSMOLALITY,S ER Performed By: #### L501.7300 #### [facility] [address] [place], [address] MISCELLANEOUS LAB Collected: 03/19/2018 Status: F Source: [place] PROCEDURE 6:12 PM [facility] Order Comment: Test(s) Ordered: #[id number] ADH SERUM SST AND LAV FRZ TYPE CODE TESTS RESULT OUT OF RANGE REFERENCE UNITS LAB L801.1541 Normal [facility] LAB TEST Result Comment: TEST RESULT UNITS REFERENCE INTERVAL Antidiuretic Hormone Profile ADH <0.8 pg/mL 0.0 - 4.7 Comment: Results of this test are labeled for research purposes only by the assay's cherry sorter. The performance characteristics of this assay have not been established by the cherry sorter. The result should not be used for treatment or for diagnostic purposes without confirmation of the diagnosis by another medically established diagnostic product or procedure. The performance characteristics were determined by [facility] Osmolality 281 mOsmol/kg 275 - 295 TESTING PERFORMED AT [facility]. ORIGINAL REPORT ON FILE IN LAB CONTAINS ADDITIONAL TEST SITE INFORMATION. Performed By: #### L801.1541 #### [facility] [address] [place], [address] URINALYSIS, COMPLETE Collected: 03/19/2018 Status: F Source: [place] 6:00 PM [facility] Order Comment: How was Urine Obtained? CLEAN CATCH TYPE CODE TESTS RESULT OUT OF RANGE REFERENCE UNITS LAB L400.3000 Yellow COLOR Normal Yellow LAB L400.3050 Clear Normal CLARITY Sl. Cloudy LAB L400.3200 Normal mg/dl Normal GLUCOSE, UR Normal LAB L400.3300 Negative mg/dL Normal BILIRUBIN URINE Negative LAB L400.3400 Negative mg/dl High 50 KETONE UR LAB L400.3465 1.002-1.030 Normal SP.GR. DIPSTX 1.025 LAB L400.3550 5.0 - 8.0 pH UR Normal 6.0 LAB L400.3600 Negative mg/dl PROT Normal DIPSTX Negative LAB L400.3700 Normal mg/dl Normal UROBILI Normal LAB L400.3750 Negative Normal NITRITE UR Negative LAB L400.3780 Negative /ul High 10 OCCULT BLOOD-UR LAB L400.3800 Negative /ul High LEUK 25 ESTERASE LAB L400.4050 0-5 /hpf WBC Normal 5-10 SEEN LAB L400.4100 0-5 /hpf Normal RBC-UA 0-5 SEEN LAB L400.4150 5-10 /hpf SQUAM Normal EPI 0-5 SEEN LAB L400.4300 None Seen /hpf Normal BACTERIA RARE LAB L400.4350 <or=2+ /hpf 1+ Normal MUCUS, URINE Performed By: #### L400.0001 #### [facility] [address] [place], [address] OSMOLALITY, URINE Collected: 03/19/2018 Status: F Source: [place] 6:00 PM [facility] TYPE CODE TESTS RESULT OUT OF RANGE REFERENCE UNITS LAB L501.7400 mOsm/KG Normal 690 OSMOLALITY,U R Result Comment: OSMOLALITY URINE REFERENCE INTERVALS 24-hour Urine 300 - 900 mOsm/kg Random Urine 50 - 1400 mOsm/kg After 12 Hr fluid restriction >850 mOsm/kg Performed By: #### L501.7400 #### [facility] [address] [place], [address] SURGERY VISIT REPORT Observed: 03/09/2018 Status: F Source: [place] 2:38 PM [facility] [address] [place] [address] OFFICE VISIT Date of Service: 03/09/18 MR#: [id number] Acct: [id number] Name: DENIA HERMAN Rep #: [id number] : 1985 Provider: Ely Moreno PA-C Age/Sex: 33/F Location: [facility] Status: Signed Intake Intake Visit Reasons: Gall Bladder Surgery RC 02/25 Chief Complaint: post bee RC Careers Counsellor Required: No Is patient in pain?: No Allergies No Known Allergies Allergy (Verified 03/09/18 13:26) Medications multivitamin tablet 1 tab PO QDAY 02/16/18 [History Confirmed 03/09/18] ciprofloxacin 500 mg tablet 500 mg PO BID #14 tab 02/19/18 [Rx Confirmed 03/09/18] Is last menstrual period known: No Post menopausal: No Patient : No PFSH Medical History Diarrhea (Acute) Nausea (Acute) Abdominal pain (Acute) Kidney stone (Acute) Anxiety (Acute) Hypothyroidism (Acute) Surgical History S/P surgical removal of pilonidal cyst (Acute) S/P nasal septoplasty (Acute) S/P tonsillectomy and adenoidectomy (Acute) S/P laparoscopic cholecystectomy (Acute) Family History Mother No problems noted. Social History Smoking Status: Never smoker second hand exposure: No alcohol intake: never substance use type: does not use caffeine: No what type of physical activity do you participate in: none frequency: does not exercise seatbelt use: always HPI HPI HPI: DENIA HERMAN, is a 33 F I am following for biliary dyskinesia. Dr. Bush performed a laparoscopic cholecystectomy with intraoperative cholangiogram and simple umbilical hernia repair on 02/25/2018. Patient tolerated the procedure well. She denies incisional discomfort, nausea, vomiting, fever. Pathology demonstrated chronic cholecystitis. Exam Const General: cooperative, healthy appearing, comfortable, no acute distress GI Inspection: normal to inspection, incision (c/d/i. No erythema or infection noted) Palpation: soft Auscultation: normal bowel sounds Assessment AND Plan Problems 1. Biliary dyskinesia K82.8 2. Umbilical hernia without obstruction and without gangrene K42.9 Plan - Recommend no lifting greater than 30 pounds for 2 weeks - Follow-up as needed Coding Level of Care Code Global Post Op Diagnoses Biliary dyskinesia K82.8 Umbilical hernia without obstruction and without gangrene K42.9 Obstruction and gangrene presence: without obstruction or gangrene 03/09/18 1438 <Electronically signed by Ely Moreno PA-C> Date Ely Moreno PA-C Cosigner Signature: Date (if applicable) CC: Stella Bustamante DO CBC W/DIFF, AUTOMATED Collected: 03/05/2018 Status: F Source: [place] 9:55 AM [facility] TYPE CODE TESTS RESULT OUT OF RANGE REFERENCE UNITS LAB L100.1000 4.4-11.0 K/mm3 Normal WBC 5.7 LAB L100.1200 4.2-5.4 M/mm3 Normal RBC 4.49 LAB L100.1300 12.0-15.0 g/dl Normal HGB 13.0 LAB L100.1400 37-47 % Normal HCT 40.0 LAB L100.1500 81-99 fL Normal MCV 89.1 LAB L100.1600 27.0-32.0 pg Normal MCH 29.0 LAB L100.1700 32-36 g/gl Normal MCHC 32.5 LAB L100.1810 11.6-14.6 % Normal RDW CV 13.5 LAB L100.1820 35.1-43.9 fl High RDW SD 44.3 LAB L100.1900 150-450 K/mm3 Normal PLT 383 LAB L100.2000 6.2-12.0 fl Normal MPV 9.4 LAB L100.2100 47-70 % Normal NEUT% 54.1 LAB L100.2200 19-41 % Normal LY% 33.0 LAB L100.2300 0-10 % Normal MONO% 7.7 LAB L100.2400 0-5 % Normal EO% 4.7 LAB L100.2500 0-1 % Normal BASO% 0.5 LAB L100.2550 0.0-0.9 % Normal IM GRAN % 0.000 Result Comment: IG% - Immature Granulocytes (promyelocytes, myelocytes and metamyelocytes) > 1% indicates that a LEFT SHIFT is Present. LAB L100.2620 2.0-7.7 X10 3/uL Normal Absolute Neut 3.1 LAB L100.2720 0.83-4.51 X10 3/ul Normal Absolute Lymph 1.89 Performed By: #### L100.0100 #### [facility] [address] [facility] [place], [place], [address] COMPREHENSIVE METABOLIC Collected: 03/05/2018 Status: F Source: [facility] 9:55 AM [facility] TYPE CODE TESTS RESULT OUT OF RANGE REFERENCE UNITS LAB L501.0100 74-106 mg/dL Low GLU 73 Result Comment: Please note revised GLUCOSE reference range effective 2017. LAB L501.1000 7-18 mg/dL Normal BUN 10 LAB L501.1100 0.55-1.02 mg/dL Normal CREAT,SERUM 0.65 Result Comment: The validity of the calculated GFR AND GFRAA in patients over 70 years has not been determined. Clinical correlation is essential. LAB L501.1110 >60 mL/min Normal EST GFR 111 Result Comment: Non- GFR Calc LAB L501.1115 >60 mL/min Normal EST GFR - AA 134 Result Comment: GFR Calc LAB L501.1300 10-20 RATIO Normal BUN/CRE 15.4 LAB L501.1500 6.4-8.2 g/dL T Normal PROT 7.7 LAB L501.1800 3.2-5.0 g/dL Normal ALB 3.8 LAB L501.1950 2.2-4.2 g/dL Normal GLOB 3.9 LAB L501.2000 0.9-2.4 RATIO Normal A/G 1.0 LAB L501.2200 8.5-10.1 mg/dL CA Normal 9.1 LAB L501.4100 15-37 U/L Low AST 10 LAB L501.4305 45-117 U/L Normal ALK P 74 LAB L501.4405 13-56 U/L Normal ALT 23 LAB L501.4600 0.20-1.00 mg/dL T Normal BILI 0.40 LAB L501.5300 136-145 mmol/L NA Normal 140 LAB L501.5600 3.5-5.1 mmol/L K Normal 3.8 LAB L501.5900 98-107 mmol/L CL Normal 105 LAB L501.6100 21.0-32.0 mmol/L Normal CO2 28.0 LAB L501.6200 5-15 Normal GAP 7 Performed By: #### L500.4050, L501.6710, L501.9520 #### [facility] [address] [place], [address] CRP Collected: 03/05/2018 Status: F Source: [place] 9:55 AM [facility] TYPE CODE TESTS RESULT OUT OF RANGE REFERENCE UNITS LAB L501.6710 0.0-3.0 mg/L High 4.34 C-REACTIVE PROT Result Comment: C-Reactive Protein (CRP) provides useful information for the diagnosis, therapy and monitoring of inflammatory processes and associated diseases. For the evaluation of Relative Risk for Cardiovascular Disease, a High Sensitivity CRP (HSCRP) should be ordered. Performed By: #### L500.4050, L501.6710, L501.9520 #### [facility] [address] [place], [place], [address] THYROID STIM HORMONE Collected: 03/05/2018 Status: F Source: [place] (TSH) 9:55 AM [facility] TYPE CODE TESTS RESULT OUT OF RANGE REFERENCE UNITS LAB L501.9520 0.358-3.74 uIU/mL Normal TSH 2.11 Performed By: #### L500.4050, L501.6710, L501.9520 #### [facility] [address] [facility] [place], [place], [address] CELIAC DISEASE Collected: 03/05/2018 Status: F Source: [place] PROFILE 9:55 AM [facility] TYPE CODE TESTS RESULT OUT OF RANGE REFERENCE UNITS LAB L3200.1400 87-352 mg/dL Normal IMMUNO A 112 Result Comment: Performed at: - [facility] [id number] Salesperson Men'S Hats: Ja Myers PhD, Phone: [phone] LAB L3390.7169 0-3 U/mL Normal tTG IGA <2 Result Comment: Negative 0 - 3 Weak Positive 4 - 10 Positive >10 Tissue Transglutaminase (tTG) has been identified as the endomysial antigen. Studies have demonstr- ated that endomysial IgA antibodies have over 99% specificity for gluten sensitive enteropathy. LAB L3410.7680 Negative Normal ENDOMYSIAL IGA Negative Performed By: #### L3410.2400 #### [facility] (refer to report for specific site) refer to report for address and phone number DISCHARGE INSTRUCTION Observed: 02/26/2018 Status: F Source: [place] 6:12 AM [facility] Medical Records Department [address] [place] [address] Instructions for Home/Discharge Instructions 02/25/18725 MR#: [id number] Acct: [id number] Name: DENIA HERMAN Chris Rep #: [id number] : 1985 33 From: Dereje Bush MD PCP: Stella Bustamante DO Status: DEP [facility] Discharge Diet: Light diet - advance as tolerated - if you have questions about your diet instructions, please talk to you doctor. Discharge Activity: May Not Drive - for 1 week or while taking narcotic pain medicine. May shower in (days): 1 Lifting Restrictions: 10 pounds Call your doctor if your incision/area has: Continuous Slow Oozing, Sudden Increased Bleeding, Increased Pain/ Swelling, Increased Redness, Foul Smelling Discharge Call your doctor if you observe: Fever of 101 or Higher Suture Line Care: Avoid Pulling/Pushing, Avoid Pinching/Bending Additional Dressing/Incision Instructions:: Change or remove dressing in 4 days. Leave steri-strips in place for 1 week. Allergies/Adverse Reactions: Allergies No Known Allergies Allergy (Verified 02/19/18 10:17) Medications to take at Discharge multivitamin tablet 1 tab PO QDAY 02/16/18 ciprofloxacin 500 mg tablet 500 mg PO BID #14 tab 02/19/18 Hydrocodone Bitart/Apap 5-325 [[place] 5MG-325MG] 1 tablet PO Q6H PRN PRN 3 Days #10 tablet 02/25/18 The following prescriptions were given: Hydrocodone Bitart/Apap 5-325 [[place] 5MG-325MG] 1 tablet PO Q6H PRN PRN 3 Days #10 tablet PRN Reason: Pain Primary Care Physician: Stella Bustamante DO [Primary Care Provider] - Please Follow Up With: Dereje Bush MD - [phone] When: Call to make an appointment to be seen in about 10 days. 02/26/18 0612 <Electronically signed by Dereje Bush MD> Date Dereje Bush MD CC: Stella Bustamante DO OPERATIVE REPORT Observed: 02/26/2018 Status: F Source: [place] 6:12 AM [facility] Medical Records Department [address] [place] [address] Operative Report 02/25/18 0825 MR#: [id number] Acct: [id number] Name: DENIA HERMAN Rep #: [id number] : 1985 33 From: Dereje Bush MD PCP: Stella Bustamante DO Status: DEP [facility] Y Location: [facility] Problem List (1) Biliary dyskinesia Status: Acute (2) Umbilical hernia without obstruction or gangrene Status: Acute Report of Operation Date of Procedure: 02/25/18 Pre-Operative Diagnosis: Biliary dyskinesia Post-Operative Diagnosis: Biliary dyskinesia. Umbilical hernia Surgery/Procedure Performed:: Laparoscopic cholecystectomy with cholangiography. Umbilical herniorrhaphy Description of Surgical Findings:: Timeout and informed consent was obtained. 33-year-old female was taken out from placement table underwent general endotracheal intubation anesthesia. Ancef 2 g given intravenously preoperatively. The abdomen was sterilely prepped and draped. 0.5% Marcaine was used as local anesthetic. Throughout the procedure total 30 cc was used. Skin sites were pre-anesthetized. A vertical incision was made at the umbilicus and so doing an umbilical hernia was encountered with some preperitoneal fatty tissue and eye. This is dissected free. Then holding sutures of 0 Vicryl placed direct access was gained to the peritoneum a 12 m trocar was inserted the absence freed CO2 to pressure of 10 mmHg pressure. Five-minute trochars are placed the epigastric right upper quadrant and right upper abdomen area. Abdomen is rapidly inspected no evidence any superficial abnormalities the gallbladder grossly appeared to be unremarkable gallbladder was distracted blunt dissection with a instituted the infundibulum until clearly the cystic artery and cystic duct were identified the hepatocystic angle was completely dissected free 2 Hem-o-roshan clips were placed proximally on the cystic artery and one distally prior to transecting it Hem-o-roshan clip was placed on the cystic duct incision in the cystic duct cholangiogram catheter was inserted. A valve of Heister prevented advancement and so a grasper was used to hold it in position. Fluoroscopically controlled claims grams were obtained demonstrating normal ductal anatomy and free flow into the small bowel. The cholangiogram catheter was removed 2 Hem-o-roshan clips were placed on the cystic duct prior to transecting it. There was a posterior cystic artery that was secured with a Hem-o-roshan clip. The gallbladder was then dissected free from the liver bed using electrocautery. Complete hemostasis was intact. Gallbladder was placed in retrieval bag the right upper quadrant was irrigated and aspirated free of excess fluid. The gallbladder was exited the umbilicus remaining trochars removed under visualization. The abdomen was allowed to deflate of CO2. The fascia at the umbilicus for the hernia was approximated with an interrupted 0 Nurolon [id number]-ep-[id number] suture. Skin edges approximated with interrupted 4 Monocryl subdermal stitches. Steri-Strips Telfa and OpSite dressings applied. Sponge instrument and needle counts were reported to the surgeon to be correct. Blood loss was minimal. Specimens gallbladder. Drains none. Blood loss minimal. Dereje Bush M.D., F.A.C.S. Type of Anesthesia:: General Anesthesiologist: Park Jain 02/26/18 0612 <Electronically signed by Dereje Bush MD> Date Dereje Bush MD CC: Stella Bustamante DO; Dereje Bush MD Signed GALLBLADDER Observed: 02/25/2018 Status: F Source: [place] 7:15 AM [facility] Patient: DENIA HERMAN : 1985 (33/F) Acct Num: [id number] Phys: Dereje Bush MD Unit Num: [id number] Loc: [facility] Specimen: [id number] Received: 02/25/18 - 1148 Spec Type: GALLBLADDE TISSUES TISSUES: Gallbladder, NOS GROSS DESCRIPTION Received is one container labeled with the patient's name and designated gallbladder. The specimen consists of a gallbladder measuring 8.5 x 2.6 x 2.5 cm. The external surface is smooth and glistening. Focally, it is granular, hemorrhagic and contains cautery artifact. The lumen of the gallbladder contains a moderate amount of greenish-yellow bile. No calculi are identified either in the lumen of the gallbladder or the specimen container. The gallbladder mucosa is bile-stained and free of mass lesions. The gallbladder wall averages 0.1 cm in thickness. Transitions Manager Rn sections of the gallbladder and the cystic duct are submitted in one cassette. / AM:enrique 02/25/18 TC:3 CPT: 12785 HEADER OPERATION: Laparoscopic cholecystectomy with intraoperative cholangiogram PRE-OP DIAGNOSIS: Biliary dyskinesia, right upper quadrant abdominal pain TISSUE SUBMITTED: Gallbladder MICROSCOPIC DESCRIPTION Slides are reviewed. MICROSCOPIC DIAGNOSIS Gallbladder, cholecystectomy: Mild chronic cholecystitis. AM:enrique 02/26/18 Signed Ion Bess 02/26/18 <signature on file> Performed By: #### PGALL #### [facility] [address] [facility] [place], [address] ,URINE Collected: 02/25/2018 Status: F Source: [place] 5:40 AM [facility] TYPE CODE TESTS RESULT OUT OF REFERENCE UNITS RANGE LAB L400.8000 Negative Normal HCGUQUAL Negative Result Comment: Very dilute urine specimens, as indicated by a low specific gravity, may not contain small business representative levels of hCG. If is still suspected, a first morning urine specimen should be collected 48 hours later and tested. Performed By: #### L400.7600 #### [facility] [address] [facility] [place], [address] CHOLANGIOGRAM/ O Observed: 02/25/2018 Status: F Source: [place] R,INITIAL 12:33 AM [facility] Imaging Services [address] [place] [address] Cholangiogram/ O R,Initial MR#: [id number] Acct: [id number] Name: BATSHEVADENIA Chris Rep #: [id number] : 1985 F 33 From: Harris Haynes MD PCP: Stella Bustamante DO Status: [facility] Study: Cholangiogram/ O R,Initial Date of Exam: 02/25/18 Exam# [id number] Ordering Dr: Dereje Bush MD CLINICAL HISTORY: Female, 33 years old. Abdomen pain. Comment: Fluoroscopy services provided for clinical procedure. Please refer to operating physician's procedure note for additional detail. PROCEDURE: CHOLANGIOGRAM - Fluoroscopy services provided for clinical procedure. Please refer to operating physician's procedure note for additional detail. FLUOROSCOPY TIME (if supplied): (Not provided) minutes/seconds TECHNIQUE: 33, intraprocedural fluoroscopic spot images of the right upper quadrant. FINDINGS: Opacified intrahepatic and extra hepatic bile ducts appear unremarkable. Specifically, there is no evident filling defect. There is no significant incidental finding. There is no extrabiliary contrast. RAD/Cholangiogram/ O R,Initial IMPRESSION: Unremarkable appearing opacified intrahepatic and extra hepatic bile ducts. No extrabiliary contrast. No significant incidental finding. Comment: Fluoroscopy services provided for clinical procedure. Please refer to operating physician's procedure note for additional detail. Electronically Signed: Harris Haynes MD at 8:47 EDT , Service support , CC: Stella Bustamante DO; Dereje Bush MD Police Guard: Signed URINALYSIS, COMPLETE Collected: 02/20/2018 Status: F Source: [place] 2:16 PM [facility] Order Comment: How was Urine Obtained? PICK PULLING MACHINE TENDER TO SPECIFY TYPE CODE TESTS RESULT OUT OF RANGE REFERENCE UNITS LAB L400.3000 Yellow COLOR Normal Yellow LAB L400.3050 Clear Normal CLARITY Clear LAB L400.3200 Normal mg/dl Normal GLUCOSE, UR Normal LAB L400.3300 Negative mg/dL Normal BILIRUBIN URINE Negative LAB L400.3400 Negative mg/dl High 5 KETONE UR LAB L400.3465 1.002-1.030 Normal SP.GR. DIPSTX 1.005 LAB L400.3550 5.0 - 8.0 pH UR Normal 7.0 LAB L400.3600 Negative mg/dl PROT Normal DIPSTX Negative LAB L400.3700 Normal mg/dl Normal UROBILI Normal LAB L400.3750 Negative Normal NITRITE UR Negative LAB L400.3780 Negative /ul Normal OCCULT BLOOD-UR Negative LAB L400.3800 Negative /ul High LEUK ESTERASE 100 LAB L400.4050 0-5 /hpf WBC Normal 0-5 SEEN LAB L400.4100 0-5 /hpf 0 Normal RBC-UA SEEN LAB L400.4150 5-10 /hpf SQUAM 0 Normal EPI SEEN LAB L400.4300 None Seen /hpf 0 Normal BACTERIA SEEN LAB L400.4350 <or=2+ /hpf 0 Normal MUCUS, URINE SEEN Performed By: #### L400.0001, M100.0650 #### [facility] [address] [place], [address] Observed: 02/20/2018 Status: F Source: [place] CULTURE, URINE 2:16 PM [facility] Urine Culture Culture exhibits no growth. Performed By: #### L400.0001, M100.0650 #### [facility] [address] [place], [address] OPERATIVE REPORT Observed: 02/20/2018 Status: F Source: [place] 6:49 AM [facility] Medical Records Department [address] [facility] [place] [address] Operative Report 02/20/18 0645 MR#: [id number] Acct: [id number] Name: DENIA HERMAN Rep #: [id number] : 1985 33 From: Dereje Bush MD PCP: Stella Bustamante DO Status: REG SDC Y [facility] Problem List (1) Abdominal pain Status: Acute Qualifiers: Abdominal location: epigastric Qualified Code(s): R10.13 - Epigastric pain Report of Operation Date of Procedure: 02/20/18 Pre-Operative Diagnosis: Right upper quadrant pain Post-Operative Diagnosis: Very small hiatal hernia, minimal antral erythema Surgery/Procedure Performed:: Esophagogastroduodenoscopy with duodenal and antral and distal esophageal biopsies with cold forceps Description of Surgical Findings:: Timeout and informed consent was obtained. 33-year-old female was taken to the endoscopy suite. Her oropharynx was anesthetized Cetacaine. She was placed in a left lateral decubitus position throughout. Throughout the procedure she received total 100 mg Demerol and 3.5 mg of Versed is intravenous sedation. Videogastroscope was inserted into the esophageal inlet. Proximal mid distal esophagus inspected unremarkable. EG junction was at 40 cm. Very small hiatal hernia noted. No evidence for overt esophageal irritation. The scope was advanced in the stomach where there was very minimal erythema of the antrum. The scope was advanced through the pylorus and the first and second portions of the duodenum were inspected. This appeared to be normal. There was bile within the duodenum. I did not see any bile within the stomach. A duodenal biopsy was obtained of the bulb. Scope was withdrawn to the antrum and an antral biopsy was obtained. The scope was retroflexed the cardia inspected the main body of the stomach inspected. This appeared to be unremarkable. Scope was placed back in antegrade viewing position and the greater and lesser curvatures were inspected. Excess fluid and air was aspirated free. The scope was withdrawn to the distal esophagus. Distal esophageal biopsy was obtained. Excess fluid and air was aspirated free the procedure was completed with the patient tolerating it well. Impression Very small minimal hiatal hernia. Minimal erythema of the antrum. Duodenal and antral and distal esophageal biopsies pending. The current examination does not correlate with the patient's complaint of right upper quadrant pain. She will be notified of pathology as a become available but at this time we plan to proceed with the laparoscopic cholecystectomy with tentative diagnosis biliary dyskinesia. Cc: Dr. Stella Bustamante Meds were given at 0634. The procedure was started 0637. Procedure was completed at 0642. Dereje Bush M.D., F.A.C.S. Type of Anesthesia:: IV Sedation 02/20/18 0649 <Electronically signed by Dereje Bush MD> Date Dereje Bush MD CC: Stella Bustamante DO; Dereje Bush MD Signed EGD ([facility] Observed: 02/20/2018 Status: F Source: [place] 6:40 AM [facility] Patient: DENIA HERMAN : 1985 (33/F) Acct Num: [id number] Phys: Jonny WEIR,Dereje Segal Num: [id number] Loc: EN Specimen: [id number] Received: 02/20/18 - 1431 Spec Type: EGD BIOPSY TISSUES TISSUES: A. Duodenum, NOS B. Gastric mucous membrane C. Esophageal mucous membrane COMMENT The results of immunohistochemistry for Helicobacter pylori will be reported separately ([id number]). GROSS DESCRIPTION A - Received in fixative is one container labeled with the patient's name and designated duodenum biopsy. The specimen consists of one irregular fragment of light [place] soft tissue that measures 0.7 x 0.2 x 0.1 cm. The specimen is totally submitted in one cassette. B - Received in fixative is one container labeled with the patient's name and designated antrum biopsy. The specimen consists of one irregular fragment of light [place] soft tissue that measures 0.3 x 0.3 x 0.1 cm. The specimen is totally submitted in one cassette. C - Received in fixative is one container labeled with the patient's name and designated distal esophagus biopsy. The specimen consists of multiple irregular fragments of light [place] soft tissue that in aggregate measure 1 x 0.5 x 0.1 cm. The specimen is totally submitted in one cassette. / SJ:enrique 02/20/18 TC:3 CPT: 75625 x3 HEADER OPERATION: EGD PRE-OP DIAGNOSIS: Right increased abdomen pain, biliary dyskinesia TISSUE SUBMITTED: A Duodenum biopsy, B Antrum biopsy for H. pylori and path, C Distal esophagus biopsy MICROSCOPIC DESCRIPTION Slides are reviewed. MICROSCOPIC DIAGNOSIS A. Duodenum, biopsy: No significant pathologic change. B. Gastric antrum, biopsy: Mild chronic gastritis. C. Distal esophagus, biopsy: Consistent with reflux esophagitis. Gastroesophageal junctional mucosa with mild to moderate chronic inflammation. AM:enrique 02/23/18 Signed Ion Maria Alejandra 02/23/18 <signature on file> Performed By: #### PEGD #### [facility] [address] [place] [address]. [place], [address] IMMUNOHISTOCHEMISTRY Observed: 02/20/2018 Status: F Source: [place] 12:00 AM [facility] Patient: DENIA HERMAN : 1985 (33/F) Acct Num: [id number] Phys: Jonny WEIR,Dereje Unit Num: [id number] Loc: EN Specimen: [id number] Received: 02/23/18 - 1126 Spec Type: IMMUNO TISSUES TISSUES: B. Stomach, NOS SPECIMEN INFORMATION: Tissue Source: B Antrum biopsy Clinical Info: Right increased abdomen pain, biliary dyskinesia Specimen Number: [id number] CPT code: 09184 METHODOLOGY: Deparaffinized sections of prefer/formalin-fixed tissue or PAP/DQ stained slides are incubated with monoclonal/polyclonal antibodies/oligonucleotide probes. Localization is made via biotin free immunoperoxidase method. Appropriate controls are performed and reacted as expected. Results on target cell population are indicated in the following table: RESULTS: ANTIBODY / CLONE RESULT Block B H Pylori (polyclonal) negative These tests were developed and their performance characteristics determined by [facility]. They may not have been cleared or approved by the U.S. Food and Drug Administration. The FDA has determined that such clearance or approval is not necessary. INTERPRETATION: B. Antrum, biopsy: Negative for Helicobacter pylori organisms. AM:enrique 02/24/18 PHYSICIAN AND INSTITUTION [place] [address] Signed Ion Maria Alejandra 02/24/18 <signature on file> Performed By: #### PIMM #### [facility] [address] [place] [address]. [place], [address] URGENT CARE VISIT Observed: 2018 Status: F Source: [place] REPORT 10:34 AM [facility] [address] [place] [address] OFFICE VISIT Date of Service: 02/19/18 MR#: [id number] Acct: [id number] Name: BATSHEVADENIA J Rep #: [id number] : 1985 Provider: Shar FELIX Age/Sex: 33/F Location: [facility] Status: Signed Intake Vital Signs02/19/18 Body Mass Index (BMI) 25.1 02/19/18 Blood Pressure 114/78 02/19/18 Height 5 ft 8 in Intake Visit Reasons: Urinary tract infection Chief Complaint: recurring dysuria, urinary frequency Allergies No Known Allergies Allergy (Verified 02/19/18 10:17) Medications multivitamin tablet 1 tab PO QDAY 02/16/18 [History Confirmed 02/19/18] ciprofloxacin 500 mg tablet 500 mg PO BID #14 tab 02/19/18 [Rx Confirmed 02/19/18] PFS Medical History Diarrhea (Acute) Nausea (Acute) Abdominal pain (Acute) Kidney stone (Acute) Anxiety (Acute) Hypothyroidism (Acute) Surgical History S/P surgical removal of pilonidal cyst (Acute) S/P nasal septoplasty (Acute) S/P tonsillectomy and adenoidectomy (Acute) Family History Mother No problems noted. Social History Smoking Status: Never smoker second hand exposure: No alcohol intake: never substance use type: does not use caffeine: No what type of physical activity do you participate in: none frequency: does not exercise seatbelt use: always HPI HPI Chief Complaint: recurring dysuria, urinary frequency Details: DENIA HERMAN, is a 33 F who presents to the office today for recurring dysuria and urinary frequency 2-3 days. Patient states approximately week ago being treated by her primary care physician for a urinary tract infection with Cipro 3 days, noting this initially helped her symptoms but within 24-48 hours after finishing the antibiotic regimen symptoms of dysuria and urinary frequency returned. She has continued complaints of right upper quadrant abdominal pain, right mid back pain, and right shoulder pain which she relates to her gallbladder which she is to have surgically removed as scheduled within the next week. She notes no complaints of fever, chills, sweats, chest pain/shortness of breath, or cough -and little to no suprapubic tenderness noted by patient. No other complaints at this time. ROS Const Constitutional: No chills, fever(s), night sweats, body ache or fatigue Resp Respiratory: No cough, chest congestion or shortness of breath Cardio Cardiology: No chest pain at rest, chest pain with exertion, shortness of breath, dyspnea on exertion, irregular heart rhythm, generalized swelling or leg pain with exertion Gastro GI: Positive for abdominal pain (RUQ); no nausea/dyspepsia or vomiting Genitourinary-Female: Positive for painful urination, urinary frequency and burning urination; no urinary urgency, difficulty urinating or urinary incontinence Skin Skin: No rash Psych Psychiatric: No anxiety Endo Endocrine: No fatigue Exam Const General: cooperative, healthy appearing, no acute distress, comfortable Nutritional Appearance: average body habitus Orientation: alert, awake, oriented x3 HENMT Head: normal to inspection Ears: hearing grossly normal bilaterally Nose: external nose normal Eyes General: appearance normal, both eyes and all related structures Neck Neck: normal visual inspection, full ROM, no lymphadenopathy, no meningeal signs, supple Neck mass: No Thyroid: thyroid normal Lymphatic: no lymphadenopathy noted Chest Chest palpation AND inspection: normal inspection of the chest Resp Effort AND Inspection: normal respiratory effort, able to speak in complete sentences, symmetric chest movement, no cough Auscultation: Bilateral: Clear to Auscultation Cardio Palpation: normal PMI Rate: regular rate Rhythm: regular rhythm Heart Sounds: S1 normal, S2 normal, no gallops, no murmurs, no rubs Pulses: radial pulses present GI Inspection: normal to inspection Palpation: soft, no hepatosplenomegaly, guarding in the RUQ, tender in the RUQ and suprapubicly (Trace) General: No CVA tenderness Skin General: no rashes or lesions noted Neuro General: alert, awake, oriented x3, gait normal Cognition: normal cognition Speech: speech normal Gait: normal gait Motor: muscle tone normal throughout Sensory Exam: no sensory deficits noted Psych Appearance: grossly normal Mental Status: mental status grossly normal Mood: congruent mood Affect: normal affect Speech and Movement: speech and movement normal Attitude: cooperative Thought Process: normal Thought Content: normal Judgment: judgment good Results [facility] Office Urine Color YELLOW Last Edit by Vanessa Fay on 02/19/18 10:20 Office Urine Clarity Clear Last Edit by Vanessa Fay on 02/19/18 10:20 Assessment AND Plan 1. UTI (urinary tract infection) N39.0 Plan Cipro as prescribed today. Appropriate hygiene is reinforced today. Clear fluids, rest, Tylenol as needed for symptomatic relief. Follow-up with PCP in 3-5 days should symptoms not improved, sooner should symptoms worsen or any other concerns develop. Patient states acknowledging understanding all the above. This note was generated with [employer] software. It may contain incorrect words, spelling, and punctuation that were not noted in checking the note before signing. Orders Orders: Plan Detail Other Medications New: ciprofloxacin administer dose 2 hrs before/6 hrs after dairy products/ca500 mg PO BID lcium/zinc/iron-containing products Coding Level of Care Code Off vis,est,level 3 Diagnoses UTI (urinary tract infection) N39.0 02/19/18 1034 <Electronically signed by Shar FELIX> Date Shar FELIX Cosigner Signature: Date (if applicable) CC: ABDOMEN SINGLE VIEW Observed: 02/17/2018 Status: F Source: [place] 5:02 PM [facility] Imaging Services [address] [place] [id number] Abdomen Single View MR#: [id number] Acct: [id number] Name: BATSHEVADENIA Rep #: [id number] : 1985 F 32 From: Alejandro Devries MD PCP: Stella Bustamante DO Status: REG CLI Study: Abdomen Single View Date of Exam: 02/17/18 Exam# [id number] Ordering Dr: Blanquita Bernal MED PEDS-C STUDY: X-RAY - ABDOMEN/PELVIS REASON FOR EXAM: Female, 33 years old. Pain. Right renal stone. TECHNIQUE: Two AP supine views of the abdomen and pelvis. COMPARISON: CT January 06, 2018 FINDINGS: Normal visualized lung bases. There is an unremarkable bowel gas pattern. There is no demonstrated free abdominal air. There is increased density at the right lower kidney with stone versus artifact from stool contents . Normal soft tissue structures. Normal visualized osseous structures. RAD/Abdomen Single View IMPRESSION: Right abdominal calcification. Electronically Signed: Alejandro Devries MD at 16:58 EDT , Service support , CC: Stella Bustamante DO; Blanquita Bernal NP Police Guard: Signed SURGERY VISIT REPORT Observed: 02/16/2018 Status: F Source: [place] 5:05 PM [facility] [address] [place] [address] OFFICE VISIT Date of Service: 02/16/18 MR#: [id number] Acct: [id number] Name: DENIA HERMAN Rep #: [id number] : 1985 Provider: Dereje Bush MD Age/Sex: 32/F Location: [facility] Status: Signed Intake Vital Signs02/16/18 Height 5 ft 7 in 02/16/18 Weight: 165 lb 2 oz 02/16/18 Body Mass Index (BMI) 25.8 02/16/18 Blood Pressure 128/86 Intake Visit Reasons: 2nd opinion rt upper qd pain seen TR 01/08 Chief Complaint: 2nd opinion RUQ pain Careers Counsellor Required: No Is patient in pain?: Yes Pain scale (1-10): 3 Allergies No Known Allergies Allergy (Verified 02/16/18 13:45) Medications multivitamin tablet 1 tab PO QDAY 02/16/18 [History Confirmed 02/16/18] Is last menstrual period known: No Post menopausal: No Patient : No PFSH Medical History Diarrhea (Acute) Nausea (Acute) Abdominal pain (Acute) Kidney stone (Acute) Anxiety (Acute) Hypothyroidism (Acute) Surgical History S/P surgical removal of pilonidal cyst (Acute) S/P nasal septoplasty (Acute) S/P tonsillectomy and adenoidectomy (Acute) Family History Mother No problems noted. Social History Smoking Status: Never smoker second hand exposure: No alcohol intake: never substance use type: does not use caffeine: No what type of physical activity do you participate in: none frequency: does not exercise seatbelt use: always HPI HPI HPI: DENIA HERMAN, is a 32 F who presents to the office today for second opinion surgical consultation. Ever since November she has had problems with severe postprandial right upper quadrant pain. This occurs 20-25 minutes postprandially. This repetitive right upper quadrant pain sometimes with radiation to the costal margin sometimes to her back in the right scapular area. She has tried taking some nonsteroidal anti-inflammatory agent and she has also tried antacids in the form of Tums with no improvement. She has been seen by urology because of incidentally identified kidney stones on CT which by patient report were felt not to be consistent with her symptoms. Her family history is only notable for 2 aunts who had cholecystectomies. It is of note that she has had a gallbladder ultrasound with no stones normal finding. Normal liver function tests. She had a hepatobiliary scan performed at the [facility] January 19, 2018 showing prompt uptake. Subsequent to a fatty male she had an ejection fraction at 34%. The interpreting physician labeled greater than 30% is normal. The patient however states that within 20 minutes of eating a fatty meal she had the exact same right upper quadrant pain that she has been having. She denies dysuria. She has not had any jaundice. Been no discoloration of her urine. Dating back to January 01, 2018 her sed rate was 16. CBC normal. At that time her C-reactive protein was 16.8. CT scan showed nonobstructing right renal calculus no other findings. She does not have any previous history of peptic ulcer disease. She does not describe reflux symptoms. She denies bright red blood per rectum or melena. She has not had any recent weight change. ROS General General: Yes weight change and appetite; no fatigue, colon cancer, breast cancer or weakness HEENT HEENT: No difficulty swallowing, eye injury, eye surgery, swollen glands or hoarseness Endo Endocrine: No thyroid disease, diabetes mellitus, thyroid cancer, Hair loss, heat intolerance or cold intolerance Skin Skin: No rash or changing moles Breast Breast: No left breast lump, right breast lump, nipple discharge, breast pain, abnormal mammogram, abnormal US or breast enlargement Musc Musculoskeletal: No back problems, arthritis, rheumatoid arthritis, gout or joint pain Cardio Cardiovascular: No murmur, pacemaker, heart disease, atrial fibrillation, high blood pressure, heart attack, heart stent, palpitations, shortness of breat with exertion or chest pain Psych Psychiatric: Yes anxiety; no depression or hearing voices Resp Respiratory: No shortness of breath, No sleep apnea, No cough, No COPD, No asthma, No emphysema, No wheezing Gastro Gastrointestinal: No abdominal pain, No nausea or vomiting, No diarrhea, No constipation, No blood in stool, No acid reflux, No hemorrhoids, No ulcers, No gallbladder problem, No black,tarry stools Additional Details: kidney stones Murali Hematologic: No blood thinners, No blood disorders, No bleeding, No anemia, No blood clots Neuro Neurologic: No system reviewed and no additional complaints, except as docu, No as per HPI, No abnormal walking, No abnormal hearing, No abnormal movements, No abnormal speech, No behavioral changes, No burning sensations, No confusion, No seizure-like activity, No unsteadiness, No dizziness, No localized weakness, No frequent falls, No headache(s), No lack of coordination, No loss of vision, No memory loss, No numbness, No other visual disturbances, No radiating pain, No restless legs, No sensory deficit, No fainting, No tingling, No tremor(s), No weakness, No other Exam Const General: cooperative, healthy appearing Nutritional Appearance: average body habitus Orientation: alert, oriented x3 HENMT Head: normal to inspection Eyes General: appearance normal, both eyes and all related structures Neck Neck: normal visual inspection Chest Chest palpation AND inspection: normal inspection of the chest Breast Palpation: No nipple discharge Resp Effort AND Inspection: normal respiratory effort Auscultation: clear to auscultation bilaterally Cardio Rate: regular rate Heart Sounds: no murmurs GI Inspection: normal to inspection Palpation: soft, no hepatosplenomegaly Auscultation: normal bowel sounds Musc Cervical Spine: normal cervical lordosis Skin General: no rashes or lesions noted Neuro Cranial Nerves: CN's II-XI intact bilaterally Extrem General: no clubbing, cyanosis or edema Psych Affect: normal affect Assessment AND Plan Problems 1. Biliary dyskinesia K82.8 2. Right upper quadrant abdominal pain R10.11 Plan I had an extensive discussion with this patient regarding her presenting symptoms. Clearly her symptoms are very reproducible subsequent to a fatty food meal. I am recommending to her that we exclude H. pylori or peptic ulcer disease with a esophagogastroduodenoscopy with biopsy. She is aware of the technique, benefits, risks, alternatives and is agreeable to proceeding. If that is not remarkable then based upon her very strong clinical presentation and reproducible discomfort with her hepatobiliary scan and very borderline hepatobiliary scan results I believe that it be quite appropriate to offer her a laparoscopic cholecystectomy with selective cholangiography. I have also in detail discussed the technique, benefits, risks and alternatives. The patient is expressively aware that if these 2 maneuvers fail to resolve her abdominal pain that I will not have a surgical resolution to her symptoms. She has had an opportunity to ask and have questions answered. It now has been multiple months. She feels that her quality of life has been significantly affected. She is interested in trying to pursue definitive resolution. Cc: Dr Robby Bush M.D., F.A.C.S. Orders Orders: Coding Level of Care Code Off vis,est,level 4 Diagnoses Biliary dyskinesia K82.8 Right upper quadrant abdominal pain R10.11 Abdominal location: right upper quadrant Time Spent (min) 45 02/16/18 1705 <Electronically signed by Dereje Bush MD> Date Dereje Bush MD Cosigner Signature: Date (if applicable) CC: Stella Bustamante DO URINALYSIS, COMPLETE Collected: 02/16/2018 Status: F Source: [place] 3:09 PM [facility] Order Comment: Comments: abdominal pain Comments: abdominal pain How was Urine Obtained? PICK PULLING MACHINE TENDER TO SPECIFY TYPE CODE TESTS RESULT OUT OF RANGE REFERENCE UNITS LAB L400.3000 Yellow COLOR Normal Yellow LAB L400.3050 Clear Normal CLARITY Clear LAB L400.3200 Normal mg/dl Normal GLUCOSE, UR Normal LAB L400.3300 Negative mg/dL Normal BILIRUBIN URINE Negative LAB L400.3400 Negative mg/dl High 50 KETONE UR LAB L400.3465 1.002-1.030 Normal SP.GR. DIPSTX 1.015 LAB L400.3550 5.0 - 8.0 pH UR Normal 5.0 LAB L400.3600 Negative mg/dl PROT Normal DIPSTX Negative LAB L400.3700 Normal mg/dl Normal UROBILI Normal LAB L400.3750 Negative Normal NITRITE UR Negative LAB L400.3780 Negative /ul High 25 OCCULT BLOOD-UR LAB L400.3800 Negative /ul High LEUK 25 ESTERASE LAB L400.4050 0-5 /hpf WBC Normal 0-5 SEEN LAB L400.4100 0-5 /hpf Normal RBC-UA 0-5 SEEN LAB L400.4150 5-10 /hpf SQUAM Normal EPI 5-10 SEEN LAB L400.4300 None Seen /hpf 0 Normal BACTERIA SEEN LAB L400.4350 <or=2+ /hpf 0 Normal MUCUS, URINE SEEN Performed By: #### L400.0001 #### [facility] [address] [facility] [place], [address] HEPATOBILLIARY IMAGING Observed: 01/19/2018 Status: F Source: [place] 11:18 AM [facility] Imaging Services [address] [place] [address] Hepatobilliary Imaging MR#: [id number] Acct: [id number] Name: DENIA HERMAN Rep #: [id number] : 1985 F 32 From: Marko Broussard DO PCP: Stella Bustamante DO Status: REG CLI Study: Hepatobilliary Imaging Date of Exam: 01/19/18 Exam# [id number] Ordering Dr: Helder Cordova MD CLINICAL: 32-year-old female with reported history of right upper quadrant abdominal pain. RADIONUCLIDE HEPATOBILIARY SCINTIGRAPHY COMPARISON: CT of the abdomen-pelvis report 01/06/2018 FINDINGS: Following the intravenous administration of 5.7 mCi of 99m Tc Mebrofenin, hepatobiliary images reveal: 1. Relatively prompt and homogeneous radiopharmaceutical concentration is noted by a normal sized liver. No parenchymal defects are identified. 2. Gallbladder activity is identified at 10 minutes post radiopharmaceutical administration. 3. Small intestinal tract is observed at 15 minutes following tracer injection. 4. Washout of the radiopharmaceutical by the hepatic parenchyma appears qualitatively normal. The patient was administered a fatty meal (8 ounces BOOST- 30 grams fat). The post fatty meal consumption gallbladder ejection fraction calculated at 60 minutes was noted to be 34.0 % (normal greater than 30%). NM/Hepatobilliary Imaging IMPRESSION: 1. NORMAL 99m Tc Mebrofenin hepatobiliary imaging examination with fatty meal ingestion. A. A gallbladder ejection fraction calculated to be greater than 30% following the administration of a consumed fatty meal makes the probability of functional hepatobiliary disease (gallbladder and/or sphincter of Oddi dyskinesia) and/or organic hepatobiliary disease (chronic acalculous cholecystitis and/or cystic duct syndrome) to be low. ([employer], J Nucl Med 43: 1603, 2002). Electronically Signed: Marko Broussard DO at 12:16 EDT Tel , Service support , CC: Stella Bustamante DO; Helder Cordova Police Guard: Signed MELISSA COMPREHENSIVE PANEL Collected: 01/14/2018 Status: F Source: [place] 4:15 PM [facility] TYPE CODE TESTS RESULT OUT OF RANGE REFERENCE UNITS LAB L3100.5500 0-9 IU/mL Normal dsDNA AB <1 Result Comment: Negative <5 Equivocal 5 - 9 Positive >9 LAB L3100.9200 0.0-0.9 AI Anti-SS-A Normal 0.3 LAB L3100.9300 0.0-0.9 AI Anti-SS-B Normal < 0.2 LAB L3410.0427 0.0-0.9 AI ANTICHROMATIN Normal <0.2 LAB L3410.0500 0.0-0.9 AI ANTI-YADY Normal <0.2 LAB L3410.0700 0.0-0.9 AI ANTISCLER Normal <0.2 LAB L3410.1200 0.0-0.9 AI RACK PUNCHER Ab Normal <0.2 LAB L3410.1300 0.0-0.9 AI AGUILAR Ab Normal <0.2 LAB L3410.4010 0.0-0.9 AI ANTI-CENT B Normal <0.2 LAB L3410.4150 . COMMENT Normal Comment Result Comment: Autoantibody Disease Association Condition Frequency --------- Antinuclear Antibody, SLE, mixed connective Direct (MELISSA-D) tissue diseases --------- dsDNA SLE 40 - 60% --------- Chromatin Drug induced SLE 90% SLE 48 - 97% --------- SSA (Ro) SLE 25 - 35% Sjogren's Syndrome 40 - 70% Lupus 100% --------- SSB (La) SLE 10% Sjogren's Syndrome 30% --------- Sm (anti-Aguilar) SLE 15 - 30% --------- RACK PUNCHER Mixed Connective Tissue Disease 95% (U1 nRNP, SLE 30 - 50% anti-ribonucleoprotein) Polymyositis and/or Dermatomyositis 20% --------- Scl-70 (antiDNA Scleroderma (diffuse) 20 - 35% topoisomerase) Crest 13% --------- Yady-1 Polymyositis and/or Dermatomyositis 20 - 40% --------- Centromere B Scleroderma - Crest variant 80% Performed at: - [facility] [id number] Salesperson Men'S Hats: Ja Myers PhD, Phone: [phone] Performed By: #### L3100.5440 #### [facility] (refer to report for specific site) refer to report for address and phone number SURGERY VISIT REPORT Observed: 01/13/2018 Status: F Source: [place] 10:50 AM [facility] [address] [place] [address] OFFICE VISIT Date of Service: 01/08/18 MR#: [id number] Acct: [id number] Name: DENIA HERMAN Rep #: [id number] : 1985 Provider: Precious Gurrola MD Age/Sex: 32/F Location: [facility] Status: Signed Intake Vital Signs01/08/18 Height 5 ft 7 in 01/08/18 Weight: 165 lb Intake Visit Reasons: Right upper quadrant pain Careers Counsellor Required: No Is patient in pain?: Yes (Right abdomen) Pain scale (1-10): 2 Allergies No Known Allergies Allergy (Verified 01/08/18 15:03) [facility] Medical History Diarrhea (Acute) Nausea (Acute) Abdominal pain (Acute) Kidney stone (Acute) Anxiety (Acute) Hypothyroidism (Acute) Surgical History S/P surgical removal of pilonidal cyst (Acute) S/P nasal septoplasty (Acute) S/P tonsillectomy and adenoidectomy (Acute) Family History Mother No problems noted. Social History Smoking Status: Never smoker second hand exposure: No alcohol intake: never substance use type: does not use caffeine: No what type of physical activity do you participate in: none frequency: does not exercise seatbelt use: always HPI HPI HPI: DENIA HERMAN, is a 32 F who presents to the office today for right side/flank since beginning of November for about the last 3 months. Patient did give 8 months ago and is currently breast-feeding. Patient did undergo an ultrasound which had a normal gallbladder wall no gallstones no pericholecystic fluid and normal common bile duct along with normal LFTs at that time. Patient did get a prescription from her HIDA; however there may been some insurance issues initially and she has not gotten a HIDA scan done. She has had multiple CAT scans since November which questioned whether there is any issue with her right kidney pelvis being dilated; however she did see urology instead that this isn't the etiology of pain. She states she has nausea about 15-20 minutes after eating and notices it more with the greasy or fatty foods, positive nausea, no vomiting she denies any current GERD symptoms or burning of the esophagus or epigastric pain. Currently the pain on right side is 2/10. Patient states she is able to eat/drink fairly normal meals during this time- trying to avoid fatty or greasy foods. Patient also states that since her last time she had bilateral rib pain that is worse on the right than on the left she was given a dose of prednisone taper by her PCP and this was her last day of the prednisone and she states that the soreness has improved but she does still have some there. Exam Const General: cooperative, comfortable, no acute distress Chest Other: Bilateral tenderness to the ribs 3 4/10 per patient greater on the right than left Resp Auscultation: clear to auscultation bilaterally Cardio Rate: regular rate Rhythm: regular rhythm GI Inspection: normal to inspection, non-distended Palpation: soft, no guarding, tender (RUQ when near ribs however no tenderness if not near the ribs in RUQ) Assessment AND Plan Problems 1. RUQ abdominal pain R10.11 2. Rib pain R07.81 b/l Plan Discussed the patient that recommend getting a HIDA scan that was previously ordered by her PCP. Patient's ultrasound was normal and normal wall, no pericholecystic cystic fluid and a normal common bile duct. Along with normal LFTs at that time. Unsure of patient's bilateral rib pain which started about the same time could have anything to do with some of this pain however she does state that the right side. Does seem to be worse after eating by exam there is no pain on palpating the right upper quadrant away from the ribs the pain is when he gets towards the ribs and she does have tenderness to the ribs on exam bilaterally and for me today is greater on the right than the left. Will follow up with the HIDA scan once the patient has it scheduled. Precious Gurrola M.D. Pager: [phone] [facility] [address] [place] [address], [address] [place] [address] Office: [phone] Plan Detail Follow Up 1 (await HIDA scan results) Coding Level of Care Code Off vis,new,level 3 Diagnoses RUQ abdominal pain R10.11 Rib pain R07.81 01/13/18 1050 <Electronically signed by Precious Gurrola MD> Date Precious Gurrola MD Cosigner Signature: Date (if applicable) CC: Stella Bustamante DO 12 LEAD ELECTROCARDIOGRAM Observed: 01/09/2018 Status: F Source: [place] 2:50 PM [facility] Cardiovascular Services [address] [place] [address] 12 Lead EKG 01/06/18 1147 MR#: [id number] Acct: [id number] Name: DENIA HERMAN Rep #: [id number] : 1985 32 From: Salvador Mckinney MD Attending Dr: Status: DEP ER Ordering Dr: Lashonda Cherry MD Date: 01/06/18 Location: ED Sex: F C Admitted: Test Reason : PALPS Blood Pressure : / mmHG Vent. Rate : 060 BPM Atrial Rate : 060 BPM P-R Int : 156 ms QRS Dur : 086 ms QT Int : 428 ms P-R-T Axes : 049 060 046 degrees QTc Int : 428 ms Normal sinus rhythm Normal ECG Confirmed by SALVADOR MCKINNEY MD ([id number]), photograph editor ANDERSON RIGGS ([id number]) on 01/09/2018 2:50:00 PM Referred By: Stella Bustamante Confirmed By:SALVADOR MCKINNEY MD 01/09/18 1450 Date Salvador Mckinney MD CC: MD Austin Cherry; Stella Bustamante DO Signed EMERGENCY DEPARTMENT Observed: 01/06/2018 Status: F Source: [place] SUMMARY 5:23 PM [facility] Medical Records Department [address] [place] [address] Emergency Department Summary 01/06/18 1249 MR#: [id number] Acct: [id number] Name: DENIA HERMAN Rep #: [id number] : 1985 32 From: Lashonda Cherry MD PCP: Stella Bustamante DO Status: DEP ER - ER Visit Summary Date of Service: 01/06/18 Chief Complaint: [] generalized fatigue weakness bradycardia, intermittent right upper quadrant pain History of Present Illness: The patient is a 32 F [] reports that today she was in a store where she suffered generalized fatigue causing her to basically placed herself on the floor, her heart rate at that time was about 99, she indicates that she recently had a heart rate was in the 40s. She also reports that for a month or 2 she has had symptoms of generalized fatigue body aches and prior outpatient workup with her physician showed no clear definitive diagnosis, she did have her ultrasound of the right upper quadrant that showed normal study, her right upper quadrant pain seems worse after she eats, she was referred for HIDA scan, but because she had an 8-month-old baby she is breast-feeding she did not obtain a HIDA scan but called the surgeon for an appointment has not had that appointment yet A single he reports she came in today because earlier today heart rate was in the 40s when she was in the store and she became weak heart rate was in the 90s and she had again a sudden onset of generalized whole body fatigue not having any chest pain fever cough abdominal pain and or paresthesias the pain to the right upper quadrant is chronic she has had normal bowel bladder habits no fever Has no history of [place] PE DVT arthritis kidney or liver problems her bowel bladder habits unremarkable she does not believe she is Physical Examination: [] Resting comfortably in the bed her blood pressure is 130/80 heart rate 80 she is afebrile HEENT exam neck exam normal lungs are clear heart tones are normal the abdomen soft nontender upper lower extremities unremarkable she is moving all 4 extremities her back is unremarkable she has no pain to her right upper quadrant now she denies chest pain or shortness of breath Test Results: [] Emergency Department Course and Treatment: [] Patient's been having intermittent paroxysms of fatigue with body pains and aches intermittent right upper quadrant pain we will obtain screening labs, discussed the case with her physicians Spoke with her physician discussed the case in detail her labs d-dimer EKG CT abdomen showed nothing acute thyroid studies were negative sinus rhythm heart rate about 70 throughout her stay here and I explained the case with her in detail and her , we have coordinated care with her family physician, follow-up with them for further management options rest and return for change in symptoms Treatment Plan: [] Disposition: [] Home stable Impression: [] Intermittent paroxysms of generalized fatigue etiology unclear few months, reported bradycardia and tachycardia This note was generated with [employer] software. It may contain incorrect words, spelling, and punctuation that were not noted in review of the chart prior to signing ED Disposition - Plan for ED Patient: Chief Complaint: Palpitations Referrals: Stella Bustamante DO [Primary Care Provider] - What to do if you have Problems For any increased pain, shortness of breath, bleeding, nausea or vomiting, chest pain, or any unexpected problems, contact your Primary Care Provider. Call [facility] ([phone]) or report to the closest Emergency Room. Call 911 if necessary. 01/06/18 1723 <Electronically signed by Lashonda Cherry MD> Date Lashonda Cherry MD Cosigner Signature (If Indicated): Date CC: Stella Bustamante DO DISCHARGE INSTRUCTION Observed: 01/06/2018 Status: F Source: [place] 4:18 PM [facility] Medical Records Department [address] [place] [address] Discharge Instruction 01/06/18 1617 MR#: [id number] Acct: [id number] Name: BATSHEVADENIA J Rep #: [id number] : 1985 32 From: Lashonda Cherry MD PCP: Stella Bustamante DO Status: REG ER ED Disposition - Plan for ED Patient: Chief Complaint: Palpitations Instructions: ED Palpitations, ED Weakness [facility] Referrals: Stella Bustamante DO [Primary Care Provider] - What to do if you have Problems For any increased pain, shortness of breath, bleeding, nausea or vomiting, chest pain, or any unexpected problems, contact your Primary Care Provider. Call [facility] ([phone]) or report to the closest Emergency Room. Call 911 if necessary. 01/06/18 1618 <Electronically signed by Lashonda Cherry MD> Date Lashonda Cherry MD Cosigner Signature (If Indicated): Date CC: Stella Bustamante DO ABDOMEN/PELVIS WITHOUT Observed: 01/06/2018 Status: F Source: [place] CONT 2:11 PM [facility] Imaging Services [address] [place] [address] Abdomen/Pelvis without Cont MR#: [id number] Acct: [id number] Name: DENIA HERMAN Rep #: [id number] : 1985 F 32 From: Torsten Vergara MD PCP: Stella Bustamante DO Status: REG ER Study: Abdomen/Pelvis without Cont Date of Exam: 01/06/18 Exam# [id number] Ordering Dr: Lashonda Cherry MD STUDY: CT ABDOMEN AND PELVIS WITHOUT CONTRAST REASON FOR EXAM: Female, 32 years old. Right sided abdominal pain. Weakness and palpitations. RADIATION DOSAGE (If Supplied By Facility): CTDIvol = ( 8.88 ) mGy, DLP = ( 439.13 ) mGycm TECHNIQUE: Transaxial images were obtained from the dome of the diaphragm to the symphysis pubis without oral contrast, and without intravenous contrast. Sagittal and coronal images were reconstructed. Individualized dose optimization techniques were used for this CT. COMPARISON: Comparison is made with prior examination dated December 24, 2017. FINDINGS: The visualized lung bases are unremarkable. The visualized portions of the heart are within normal limits. Normal liver. Normal gallbladder and extrahepatic biliary system. Normal spleen. Normal pancreas. Normal bilateral adrenal glands. There is a 4.2 mm calculus in the lower pole calyx of the right kidney. This is unchanged. Normal left kidney. Normal visualized stomach. Normal small intestine. Normal colon. The appendix is visualized and appears normal. Normal abdominal aorta. Normal inferior vena cava. Normal retroperitoneum. Normal urinary bladder. There is a small umbilical hernia containing fat. Normal osseous structures. CT/Abdomen/Pelvis without Cont IMPRESSION: Stable nonobstructive right intrarenal calculus. Electronically Signed: Torsten Vergara MD at 14:49 EST Tel [phone], Service support , CC: MD Austin Cherry; Stella Bustamante DO Police Guard: Signed URINALYSIS, COMPLETE Collected: 01/06/2018 Status: F Source: [place] 1:48 PM [facility] Order Comment: Order Date: 01/06/18 Has pt arrived? Y How was Urine Obtained? CLEAN CATCH TYPE CODE TESTS RESULT OUT OF RANGE REFERENCE UNITS LAB L400.3000 Yellow COLOR Normal Yellow LAB L400.3050 Clear Normal CLARITY Clear LAB L400.3200 Normal mg/dl Normal GLUCOSE, UR Normal LAB L400.3300 Negative mg/dL Normal BILIRUBIN URINE Negative LAB L400.3400 Negative mg/dl Normal KETONE UR Negative LAB L400.3465 1.002-1.030 Normal SP.GR. DIPSTX 1.010 LAB L400.3550 5.0 - 8.0 pH UR Normal 7.0 LAB L400.3600 Negative mg/dl PROT Normal DIPSTX Negative LAB L400.3700 Normal mg/dl Normal UROBILI Normal LAB L400.3750 Negative Normal NITRITE UR Negative LAB L400.3780 Negative /ul High 10 OCCULT BLOOD-UR LAB L400.3800 Negative /ul LEUK Normal ESTERASE Negative LAB L400.4050 0-5 /hpf WBC 0 Normal SEEN LAB L400.4100 0-5 /hpf 0 Normal RBC-UA SEEN LAB L400.4150 5-10 /hpf SQUAM 0 Normal EPI SEEN LAB L400.4300 None Seen /hpf Normal BACTERIA RARE LAB L400.4350 <or=2+ /hpf 0 Normal MUCUS, URINE SEEN Performed By: #### L400.0001 #### [facility] [address] [place], [place], [id number] CBC W/DIFF, AUTOMATED Collected: 01/06/2018 Status: F Source: [place] 12:24 PM [facility] TYPE CODE TESTS RESULT OUT OF RANGE REFERENCE UNITS LAB L100.1000 4.4-11.0 K/mm3 Normal WBC 9.8 LAB L100.1200 4.2-5.4 M/mm3 Normal RBC 4.63 LAB L100.1300 12.0-15.0 g/dl Normal HGB 13.7 LAB L100.1400 37-47 % Normal HCT 39.7 LAB L100.1500 81-99 fL Normal MCV 85.7 LAB L100.1600 27.0-32.0 pg Normal MCH 29.6 LAB L100.1700 32-36 g/gl Normal MCHC 34.5 LAB L100.1810 11.6-14.6 % Normal RDW CV 13.4 LAB L100.1820 35.1-43.9 fl Normal RDW SD 41.6 LAB L100.1900 150-450 K/mm3 Normal PLT 381 LAB L100.2000 6.2-12.0 fl Normal MPV 9.3 LAB L100.2100 47-70 % Low NEUT% 41.4 LAB L100.2200 19-41 % High LY% 47.1 LAB L100.2300 0-10 % Normal MONO% 10.0 LAB L100.2400 0-5 % Normal EO% 1.0 LAB L100.2500 0-1 % Normal BASO% 0.2 LAB L100.2550 0.0-0.9 % Normal IM GRAN % 0.300 Result Comment: IG% - Immature Granulocytes (promyelocytes, myelocytes and metamyelocytes) > 1% indicates that a LEFT SHIFT is Present. LAB L100.2620 2.0-7.7 X10 3/uL Normal Absolute Neut 4.1 LAB L100.2720 0.83-4.51 X10 3/ul High Absolute Lymph 4.61 Performed By: #### L100.0100 #### [facility] [address] [place], [place], [address] BASIC METABOLIC Collected: 01/06/2018 Status: F Source: [place] PROFILE (BMP) 12:24 PM [facility] Order Comment: 'TROP' Serial specimen #1, #2, #3, or #4: 1 TYPE CODE TESTS RESULT OUT OF RANGE REFERENCE UNITS LAB L501.0100 74-106 mg/dL Normal GLU 87 Result Comment: Please note revised GLUCOSE reference range effective 2017. LAB L501.1000 7-18 mg/dL High BUN 21 LAB L501.1100 0.55-1.02 mg/dL Normal CREAT,SERUM 0.70 Result Comment: The validity of the calculated GFR AND GFRAA in patients over 70 years has not been determined. Clinical correlation is essential. LAB L501.1110 >60 mL/min Normal EST GFR 102 Result Comment: Non- GFR Calc LAB L501.1115 >60 mL/min Normal EST GFR - AA 123 Result Comment: GFR Calc LAB L501.1255 ml/min Normal Estimated CRCL 111.16 LAB L501.1300 10-20 RATIO High BUN/CRE 29.9 LAB L501.2200 8.5-10 mg/dL .1 CA Normal 9.4 LAB L501.5300 136-14 mmol/L 5 NA Normal 138 LAB L501.5600 3.5-5. mmol/L Low 1 K 3.1 LAB L501.5900 98-107 mmol/L CL Normal 104 LAB L501.6100 21.0-3 mmol/L 2.0 CO2 Normal 24.0 LAB L501.6200 5-15 GAP Normal 10 Performed By: #### L500.2500, L501.4010 #### [facility] [address] [facility] [place], [place], [id number] TROPONIN-I Collected: 01/06/2018 Status: F Source: [place] 12:24 PM [facility] Order Comment: 'TROP' Serial specimen #1, #2, #3, or #4: 1 TYPE CODE TESTS RESULT OUT OF RANGE REFERENCE UNITS LAB L501.4010 <0.06 ng/mL Normal < 0.02 TROPONIN-I Result Comment: TROPONIN-I EXPECTED VALUES <0.05 NEGATIVE 0.06 - 0.59 AT RISK OF [place] > OR = 0.60 SUGGEST [place] Performed By: #### L500.2500, L501.4010 #### [facility] [address] [facility] [place], [place], [id number] LIVER PROFILE Collected: 01/06/2018 Status: F Source: [place] 12:24 PM [facility] TYPE CODE TESTS RESULT OUT OF RANGE REFERENCE UNITS LAB L501.1500 6.4-8.2 g/dL Normal T PROT 7.5 LAB L501.1800 3.2-5.0 g/dL Normal ALB 3.9 LAB L501.1950 2.2-4.2 g/dL Normal GLOB 3.6 LAB L501.4100 15-37 U/L Low AST 9 LAB L501.4305 45-117 U/L Normal ALK P 76 LAB L501.4405 13-56 U/L Normal ALT 17 Result Comment: Please note revised ALT reference range effective 2017. LAB L501.4600 0.20-1.00 mg/dL Normal T BILI 0.50 LAB L501.4700 0.00-0.30 mg/dL Normal D BILI 0.09 Performed By: #### L500.3400 #### [facility] [address] [place], [address] LIPASE Collected: 01/06/2018 Status: F Source: [place] 12:24 PM [facility] TYPE CODE TESTS RESULT OUT OF RANGE REFERENCE UNITS LAB L501.2450 73-393 U/L Normal LIPASE 89 Performed By: #### L501.2450, L501.9310, L501.9520, L506.0400 #### [facility] [address] [place], [address] T4 TOTAL, THYROXIN Collected: 01/06/2018 Status: F Source: [place] 12:24 PM [facility] TYPE CODE TESTS RESULT OUT OF RANGE REFERENCE UNITS LAB L501.9310 4.8-13.9 ug/dL T4 Normal THYROXIN 9.0 Performed By: #### L501.2450, L501.9310, L501.9520, L506.0400 #### [facility] [address] [place], [address] THYROID STIM HORMONE Collected: 01/06/2018 Status: F Source: [place] (TSH) 12:24 PM [facility] TYPE CODE TESTS RESULT OUT OF RANGE REFERENCE UNITS LAB L501.9520 0.358-3.74 uIU/mL Normal TSH 2.40 Performed By: #### L501.2450, L501.9310, L501.9520, L506.0400 #### [facility] [address] [place], [place], [address] T4 FREE DIRECT Collected: 01/06/2018 Status: F Source: [place] 12:24 PM [facility] TYPE CODE TESTS RESULT OUT OF RANGE REFERENCE UNITS LAB L506.0400 0.76-1.46 ng/dL Normal T4 FREE 1.24 DIRECT Performed By: #### L501.2450, L501.9310, L501.9520, L506.0400 #### [facility] [address] [place] [address], [id number] ,SERUM,HCG QUALI. Collected: Status: F Source: [place] 01/06/2018 12:24 PM [facility] TYPE CODE TESTS RESULT OUT OF REFERENCE UNITS RANGE LAB L700.6700 =>Qualitative mIU/mL Normal HCG Qual < 1 triggr LAB L700.7000 0-9 Nonpreg Negative Normal HCGSQUAL NEGATIVE Performed By: #### L700.6800 #### [facility] [address] [place] [address], [id number] D-DIMER QUANTITATIVE Collected: 01/06/2018 Status: F Source: [place] (DVT/PE) 12:24 PM [facility] TYPE CODE TESTS RESULT OUT OF RANGE REFERENCE UNITS LAB L300.8000 0.27-0.49 FEU/ug/m Low D-DIMER < 0.27 QUANT Result Comment: NORMAL D-Dimer level (<0.50) indicates no DVT or PE. Performed By: #### L300.8000 #### [facility] [address] [place] [address], [id number] CHEST 1 VIEW Observed: 01/06/2018 Status: F Source: [place] (PORTABLE) 12:08 PM [facility] Imaging Services [address] [place] [address] Chest 1 View (Portable) MR#: [id number] Acct: [id number] Name: DENIA HERMAN Rep #: [id number] : 1985 F 32 From: Torsten Vergara MD PCP: Helder Cordova Status: PRE ER Study: Chest 1 View (Portable) Date of Exam: 01/06/18 Exam# [id number] Ordering Dr: Lashonda Cherry MD STUDY: X-RAY CHEST REASON FOR EXAM: Female, 32 years old. Chest pressure. TECHNIQUE: Single AP portable view of the chest. COMPARISON: None. FINDINGS: EKG electrodes are seen. The lungs are clear and expanded. There is no demonstrated pleural abnormality. Normal size heart. Normal mediastinum and renzo. Normal visualized pulmonary arteries. Normal visualized aortic arch and descending thoracic aorta. Normal visualized thoracic spine. Normal visualized ribs, clavicles, and shoulders. There is no demonstrated abnormality of the visualized soft tissue structures of the upper abdomen. RAD/Chest 1 View (Portable) IMPRESSION: Normal x-ray examination of the chest. Electronically Signed: Torsten Vergara MD at 12:40 EST Tel [phone], Service support , CC: MD Austin Cherry; Helder Cordova Police Guard: Signed CBC W/DIFF, AUTOMATED Collected: 01/01/2018 Status: F Source: [place] 3:42 PM [facility] TYPE CODE TESTS RESULT OUT OF RANGE REFERENCE UNITS LAB L100.1000 4.4-11.0 K/mm3 Normal WBC 8.1 LAB L100.1200 4.2-5.4 M/mm3 Normal RBC 4.52 LAB L100.1300 12.0-15.0 g/dl Normal HGB 13.0 LAB L100.1400 37-47 % Normal HCT 39.8 LAB L100.1500 81-99 fL Normal MCV 88.1 LAB L100.1600 27.0-32.0 pg Normal MCH 28.8 LAB L100.1700 32-36 g/gl Normal MCHC 32.7 LAB L100.1810 11.6-14.6 % Normal RDW CV 13.5 LAB L100.1820 35.1-43.9 fl Normal RDW SD 43.6 LAB L100.1900 150-450 K/mm3 Normal PLT 344 LAB L100.2000 6.2-12.0 fl Normal MPV 9.8 LAB L100.2100 47-70 % Normal NEUT% 57.8 LAB L100.2200 19-41 % Normal LY% 33.0 LAB L100.2300 0-10 % Normal MONO% 7.5 LAB L100.2400 0-5 % Normal EO% 1.4 LAB L100.2500 0-1 % Normal BASO% 0.2 LAB L100.2550 0.0-0.9 % Normal IM GRAN % 0.100 Result Comment: IG% - Immature Granulocytes (promyelocytes, myelocytes and metamyelocytes) > 1% indicates that a LEFT SHIFT is Present. LAB L100.2620 2.0-7.7 X10 3/uL Normal Absolute Neut 4.7 LAB L100.2720 0.83-4.51 X10 3/ul Normal Absolute Lymph 2.67 Performed By: #### L100.0100, L101.9900 #### [facility] [address] [facility] [address] ERYTHROCYTE SED RATE Collected: 01/01/2018 Status: F Source: [place] 3:42 PM [facility] TYPE CODE TESTS RESULT OUT OF RANGE REFERENCE UNITS LAB L102.0000 0-20 mm/hr Normal SED RATE 16 Performed By: #### L100.0100, L101.9900 #### [facility] [address] [place], [address] CRP Collected: 01/01/2018 Status: F Source: [place] 3:42 PM [facility] TYPE CODE TESTS RESULT OUT OF RANGE REFERENCE UNITS LAB L501.6710 0.0-3.0 mg/L High 16.80 C-REACTIVE PROT Result Comment: C-Reactive Protein (CRP) provides useful information for the diagnosis, therapy and monitoring of inflammatory processes and associated diseases. For the evaluation of Relative Risk for Cardiovascular Disease, a High Sensitivity CRP (HSCRP) should be ordered. Performed By: #### L501.6710 #### [facility] [place], [address] ANTINUCLEAR ANTIBODIES Collected: 01/01/2018 Status: F Source: [place] DIRECT 3:42 PM [facility] TYPE CODE TESTS RESULT OUT OF REFERENCE UNITS RANGE LAB L3100.5475 Negative High Positive MELISSA-DIRECT Result Comment: Performed at: [address] [id number] Salesperson Men'S Hats: Ja Myers PhD, Phone: [phone] Performed By: #### L3100.5475, L3100.5450 #### [facility] (refer to report for specific site) refer to report for address and phone number MELISSA W/ REFLEX MULT Collected: 01/01/2018 Status: P Source: [place] CONFIRM 3:42 PM [facility] TYPE CODE TESTS RESULT OUT OF REFERENCE UNITS RANGE LAB L3100.5475 Negative High Positive MELISSA-DIRECT Result Comment: Performed at: [address] [id number] Salesperson Men'S Hats: Ja Myers PhD, Phone: [phone] Performed By: #### L3100.5475, L3100.5450 #### [facility] (refer to report for specific site) refer to report for address and phone number ANTINUCLEAR ANTIBODY, Collected: 01/01/2018 Status: F Source: [place] IFA 3:42 PM [facility] TYPE CODE TESTS RESULT OUT OF RANGE REFERENCE UNITS LAB L3100.8000 Normal MELISSA test Result Comment: TEST RESULT LIMITS Antinuclear Antibodies, IFA Negative Negative <1:80 Borderline 1:80 Positive >1:80 TESTING PERFORMED AT [facility]. ORIGINAL REPORT ON FILE IN LAB CONTAINS ADDITIONAL TEST SITE INFORMATION. Performed By: #### L3100.7950 #### [facility] (refer to report for specific site) refer to report for address and phone number ABDOMEN/PELVIS WITHOUT Observed: 12/24/2017 Status: F Source: [place] CONT 4:45 PM [facility] Imaging Services [address] [place] [address] Abdomen/Pelvis without Cont MR#: [id number] Acct: [id number] Name: DENIA HERMAN Rep #: [id number] : 1985 F 32 From: Umang Martín STEVENS PCP: Helder Cordova Status: REG CLI Study: Abdomen/Pelvis without Cont Date of Exam: 12/24/17 Exam# [id number] Ordering Dr: Timmy Alvarado MD STUDY: CT ABDOMEN AND PELVIS WITHOUT CONTRAST REASON FOR EXAM: Female, 32 years old. Abdominal pain RADIATION DOSAGE (If Supplied By Facility): CTDIvol = ( 8.51 ) mGy, DLP = ( 416.93 ) mGycm TECHNIQUE: Transaxial images were obtained from the dome of the diaphragm to the symphysis pubis without oral contrast, and without intravenous contrast. Sagittal and coronal images were reconstructed. Individualized dose optimization techniques were used for this CT. COMPARISON: None. FINDINGS: The visualized lung bases are unremarkable. The visualized portions of the heart are within normal limits. Evaluation of the abdominal viscera is limited in the absence of intravenous contrast. Normal liver. Normal gallbladder and extrahepatic biliary system. Normal spleen. Normal pancreas. Normal bilateral adrenal glands. There is a 5 mm calculus within the inferior pole of the right kidney. Normal left kidney. Normal visualized stomach. Normal small intestine. Normal colon. The appendix is visualized and appears normal. Normal abdominal aorta. Normal inferior vena cava. Normal retroperitoneum. Normal urinary bladder. Normal visualized uterus. There is a small umbilical hernia containing fat. Normal osseous structures. CT/Abdomen/Pelvis without Cont IMPRESSION: Nonobstructing right renal calculus. No hydronephrosis. No bowel obstruction. Electronically Signed: Umang Resendiz DO at 15:23 EST Tel , Service support , CC: Timmy Alvarado MD; Helder Cordova Police Guard: Signed ABDOMEN SINGLE VIEW Observed: 12/09/2017 Status: F Source: [place] 4:01 PM [facility] Imaging Services [address] [place] [address] Abdomen Single View MR#: [id number] Acct: [id number] Name: DNEIA HERMAN Rep #: [id number] : 1985 F 32 From: John Paul Lopez DO PCP: Helder Cordova Status: REG CLI Study: Abdomen Single View Date of Exam: 12/09/17 Exam# [id number] Ordering Dr: Timmy Alvarado MD STUDY: X-RAY - ABDOMEN/PELVIS REASON FOR EXAM: Female, 32 years old. Right-sided kidney stone follow-up TECHNIQUE: Two AP supine views of the abdomen and pelvis. COMPARISON: 11/19/2017 FINDINGS: Normal visualized lung bases. There is a moderate amount of colonic fecal material. There is no demonstrated free abdominal air. Stable appearance of a small calcific density in the lower pole right renal shadow. Normal soft tissue structures. Normal visualized osseous structures. RAD/Abdomen Single View IMPRESSION: Constipation. Unchanged small calcific density in the lower pole of the right renal shadow. Electronically Signed: John Paul Lopez DO at 16:40 EST Tel , Service support , CC: Timmy Alvarado MD; Helder Cordova Police Guard: Signed ABDOMEN LIMITED Observed: 12/05/2017 Status: F Source: [place] 9:09 AM [facility] Imaging Services [address] [place] [address] Abdomen Limited MR#: [id number] Acct: [id number] Name: DENIA HERMAN Rep #: [id number] : 1985 F 32 From: Torsten Vergara MD PCP: Helder Cordova Status: REG CLI Study: Abdomen Limited Date of Exam: 12/05/17 Exam# [id number] Ordering Dr: Helder Cordova MD STUDY: ABDOMINAL ULTRASOUND - RIGHT UPPER QUADRANT REASON FOR VISIT: Female, 32 years old. Right upper quadrant pain. Nausea. TECHNIQUE: Ultrasound evaluation of the right upper quadrant was performed with real-time and static vega-scale imaging. TECHNICAL QUALITY: Adequate. COMPARISON: None. FINDINGS: Liver: The liver measures 12.6 cm. There is normal echogenicity of the liver. The bile ducts are within normal limits. There is hepatic color flow. The direction of portal flow is hepatopetal. There is no demonstrated mass lesion. Gallbladder: Normal distended gallbladder. The gallbladder wall measures 3.0 mm. There is a negative sonographic Rehman's sign. There is no pericholecystic fluid. There are no gallstones. Common Bile Duct (C.B.D.): The common bile duct measures 3.0 mm. Pancreas: Normal size of the head, body and tail of the pancreas. There is normal echogenicity of the pancreas. There is no demonstrated pancreatic mass or cyst. Right Kidney: Normal size of the right kidney. The right kidney measures 12.3 cm x 5.0 cm x 4.6 cm. Normal renal cortex. The right cortex measures 1.1 cm. There is no demonstrated renal mass or cyst. Mild dilatation of right renal pelvis. There is a 7 mm x 6 mm nonobstructive stone in the lower pole of the right kidney. US/Abdomen Limited IMPRESSION: Dilatation of the right renal pelvis. Nonobstructive right intrarenal renal calculus. Electronically Signed: Torsten Vergara MD at 10:52 EST Tel [phone], Service support , CC: Helder Cordova Police Guard: Signed ALLERGIES ALLERGIES DATE TYPE / CODE NAME / CODE REACTION SEVERITY SOURCE Drug No Known Unknown [place] 9 Allergy/714611189( Allergies/X555478 Community SNOMED CT) 388(RXNORM) Hospital Repository Miscellaneous OTHER RASH [place] Allergy/489988537( Clinic Other SNOMED CT) [place] Repository DRUG AZITHROMYCIN DIARRHEA [place] [facility] INGREDI/794986515( Clinic Other SNOMED CT) [place] Repository NG/614964909(SNOME OTHER [facility] D CT) [facility] Repository NG/207762515(SNOME AZITHROMYCIN [facility] D CT) Health System Repository ENCOUNTERS ENCOUNTERS ADMIT/DISCHARGE ACCOUNT NUMBER ADMITTING ENCOUNTER LOCATION SOURCE CLASS 11/20/2018 [id number] Ambulatory [facility] ding:LABSPEC Repository 11/20/2018/11/20/19 [id number] Ambulatory BMSBuilding: [address] Repository 10/30/2018/10/30/20 [id number] Ambulatory [address] Main [place] Repository 10/23/2018/10/23/20 [id number] Ambulatory [address] Main [place] Repository 10/22/2018/11/20/19 [id number] Ambulatory [address] Main [place] Repository 09/09/2018 [id number] Ambulatory [facility] ding:MTRAD Repository 09/08/2018/09/08/20 [id number] Ambulatory [address] Other [place] Repository 09/08/2018/09/08/20 [id number] Ambulatory [address] MEDICAL Repository CENTERBuildi ng:AGENDOG 08/26/2018/10/24 [id number] Ambulatory [place] [facility] ding:SDCRoom Repository : AC02 08/10/2018 [id number] Ambulatory [facility] ding:MTRAD Repository 08/05/2018/08/05/20 [id number] Ambulatory [address] Repository 07/15/2018/07/15/20 [id number] Ambulatory [address] Repository 07/15/2018/07/16/20 [id number] Ambulatory [address] Repository 07/08/2018 [id number] Ambulatory [facility] MEDICAL Repository CENTERBuildi ng:AGENDOG 07/07/2018 [id number] Ambulatory BMSBuilding: [place] BMS.[facility] Repository 06/30/2018 [id number] Ambulatory BMSBuilding: [place] BMS.[facility] Repository 06/09/2018/06/09/20 [id number] Ambulatory BMSBuilding: [place] 18 BMS.[facility] Repository 06/03/2018/06/03/20 [id number] Ambulatory [address] ding:RAD Foundation Repository 05/12/2018/05/12/20 [id number] Ambulatory BMSBuilding: [place] 18 BMS.[facility] Repository 04/16/2018/04/16/20 [id number] Ambulatory [address] ding:RAD [facility] Repository 04/03/2018 [id number] Ambulatory [facility] ding:LABSPEC Repository 04/01/2018 [id number] Ambulatory [facility] ding:LAB.FUT Repository URE 04/01/2018 [id number] Ambulatory [facility] ding:HPRAD Repository 03/19/2018 [id number] Ambulatory [facility] ding:LAB Repository 03/09/2018/03/09/20 [id number] Ambulatory BMSBuilding: [place] 18 BMS.[facility] Repository 03/05/2018 [id number] Ambulatory [facility] ding:BFHLAB Repository 02/25/2018/02/26/20 [id number] Ambulatory [place] [address] [place] [address] Hospital ding:SDC Repository 02/25/2018 [id number] Ambulatory BMSBuilding: [place] BMS.[facility] Repository 02/20/2018 [id number] Ambulatory General acute hospital Hospital ding:LABSPEC Repository 02/20/2018/02/21/20 [id number] Ambulatory [place] Hospital ding:EN Repository 02/20/2018 [id number] Ambulatory BMSBuilding: [place] BMS.CF.[facility] Repository 02/19/2018/02/20/20 [id number] Ambulatory BMSBuilding: [place] 18 BMS.[facility] Repository 02/17/2018 [id number] Ambulatory [facility] ding:RAD Repository 02/16/2018 [id number] Ambulatory [facility] ding:INT LAB Repository 02/16/2018/02/17/20 [id number] Ambulatory BMSBuilding: [place] 18 BMS.[facility] Repository 01/19/2018 [id number] [facility]NM Repository 01/19/2018 [id number] Ambulatory BMSBuilding: [place] [facility] Repository 01/13/2018 [id number] Ambulatory [facility] ding:BFHLAB Repository 01/08/2018/01/09/20 [id number] Ambulatory BMSBuilding: [place] 18 BMS.[facility] Repository 01/06/2018 [id number] Ambulatory BMSBuilding: [place] BMS.[facility] Hospital Repository 01/06/2018/01/07/20 [id number] Emergency [place] Hospital ding:ED Repository 01/01/2018 [id number] Ambulatory General acute hospital Hospital ding:MTLAB Repository 01/01/2018 [id number] Ambulatory BMSBuilding: [place] BMS.[facility] Repository 12/24/2017 [id number] Ambulatory [facility] ding:CT Repository 12/09/2017 [id number] Ambulatory [facility] ding:RAD Repository 12/05/2017 [id number] Ambulatory [facility] ding:US Repository PAYERS PAYERS ENCOUNTER GUARANTOR PAYER SUBSCRIBER SOURCE 11/20/2018 YASH HERMAN311 Primary YASH ERAZOB: [place] TAN Insurance:MEDICAL [id number] [address]Ron: (330) Number: Repository [phone] () [id number] Date:2417-28-60EZ [address] [place], [place] [address]WP: 11/20/2018 Secondary NOT GIVENUNK [place] Insurance:SELF PAY [facility] Number: Effective Repository Date:2018-11-20 11/20/2018 YASH HERMAN311 Primary YASH ERAZOB: [place] TAN Insurance:MEDICAL [id number] Clinic Union Hospital [address]Agi: (330) Number: Repository [phone] () [id number] Date:3424-61-[place]YB[place] [phone]: 11/20/2018 Secondary NOT GIVENUNK [place] Insurance:SELF PAY [facility] Number: Effective Repository Date:2018-11-20 09/09/2018 YASH HERMAN311 Primary YASH ERAZOB: [place] TAN Insurance:MEDICAL [id number] Clinic [facility] Hospital [address]Mce: (330) Number: Repository [phone] () [id number] Date:0389-24-08OD [address] [place] [address]OG: 09/09/2018 Secondary NOT GIVENUNK [place] Insurance:SELF PAY [facility] Number: Effective Repository Date:2018-09-09 09/08/2018 DENIA Perez Primary Insurance:MMO YASH ERAZOB: [facility] CASTROB: [facility] [id number] Number: Repository [place] [id number] [place], Date: [place] [address]Ite: (HP) 08/26/2018 YASH HERMAN311 Primary YASH BATSHEVADOB: [place] TAN Insurance:MEDICAL [id number] Clinic [facility] [address]Sre: (330) Number: Repository [phone] () [id number] Date:3739-06-15VS [address] [address]ZA: 08/26/2018 Secondary NOT GIVENUNK [place] Insurance:SELF PAY [facility] Number: Effective Repository Date:2018-08-14 08/10/2018 YASH CARABALLO1 Primary YASH HERMANDOB: [place] TAN Insurance:MEDICAL [id number] [facility] [address]Ufc: (330) Number: Repository [phone] () [id number] Date:4325-73-68BV [place] [phone]: 08/10/2018 Secondary NOT GIVENUNK [place] Insurance:SELF PAY [facility] Number: Effective Repository Date:2018-08-10 07/08/2018 DENIA Perez Primary Insurance:MMO YASH CASTROB: [facility] WINANSDOB: SUPERMED PLUSPolicy [id number] Health [facility] Number: Repository [place] [id number] [facility], Date: [place] [address]Lfn: (HP) 07/07/2018 YASH HERMAN311 Primary YASH HERMANDOB: [place] TAN Insurance:MEDICAL [id number] Clinic Union Hospital [address]Xmo: (330) Number: Repository [phone] () [id number] Date:2181-32-27OU [address] [address]OL: 07/07/2018 Secondary NOT GIVENUNK [place] Insurance:SELF PAY [facility] Number: Effective Repository Date:2018-07-03 06/30/2018 YASH MEIER Primary YASH HERMANDOB: [place] TAN Insurance:MEDICAL [id number] Clinic Union Hospital [address]Wdf: (330) Number: Repository [phone] () [id number] Date:7642-39-85US[address] [address]EU: 06/30/2018 Secondary NOT GIVENUNK [place] Insurance:SELF PAY [facility] Number: Effective Repository Date:2018-06-26 06/09/2018 YASH MEIER Primary YASH ERAZOB: [place] TAN Insurance:MEDICAL [id number] Clinic [facility] Hospital [address]Dbh: (330) Number: Repository [phone] () [id number] Date:2153-29-93BT[address] [address]CU: 06/09/2018 Secondary NOT GIVENUNK [place] Insurance:SELF PAY [facility] Number: Effective Repository Date:2018-05-25 06/03/2018 DENIA Perez Primary YASH ERAZOB: Critical access hospitalDOB: Insurance:MEDICAL [id number] [facility] [address] Repository [place] Number: [place] [id number] [address]Ybx: [phone] [phone] Date:2018-05-22 [phone] 9@[facility] CENTERel: [id number] ()Tel: (000) Name:RUTH FRANCISCO 000-0000 () ()Tel: [phone], [place] [phone] (WP) [address]OM: 05/12/2018 YASH MEIER Primary YASH HERMANDOB: [place] Insurance:MEDICAL [id number] [facility] [address]Nmh: (330) Number: Repository [phone] () [id number] Date:3680-72-53YG [address] [place] [address]YN: 05/12/2018 Secondary NOT GIVENUNK [place] Insurance:SELF PAY [facility] Number: Effective Repository Date:2018-05-11 04/16/2018 DENIA J Primary YASH WINANSDOB: [facility] WINANSDOB: Insurance:MEDICAL [id number] [facility] [address] Repository [place] Number: [place], [place] [id number]: [phone] [phone]~[id number] Date:2018-04-14 [phone] 9@[facility]ITALel: [id number] ()Tel: (000) Name:RUTH FRANCISCO 000-0000 () ()Tel: [phone], [place] [phone] (WP) [address]BH: 04/16/2018 Secondary DENIA J [facility]: Foundation MEDICAIDPolicy [id number] Repository Number: [place] [id number] [place] Date:2018-04-14 [address]Ftq: [phone]) [id number] [phone] Name:XPO Richy ()Tel: [phone] [phone], [place] 000[address] (WP) [address]WT: 04/03/2018 YASH HERMAN311 Primary YASH HERMANDOB: [place] TAN Insurance:MEDICAL [id number] [facility] [address]Jur: (330) Number: Repository [phone] () [id number] Date:3499-85-93HR [address] [place] [address]OY: 04/03/2018 Secondary NOT GIVENUNK [place] Insurance:SELF PAY [facility] Number: Effective Repository Date:2018-04-03 04/01/2018 YASH MEIER Primary YASH HERMANDOB: [place] Insurance:MEDICAL [id number] Clinic Union Hospital [address]Vrr: (330) Number: Repository [phone] () [id number] Date:2009-61-38FL [place] [phone]: 04/01/2018 Secondary NOT GIVENUNK [place] Insurance:SELF PAY [facility] Number: Effective Repository Date:2018-04-01 04/01/2018 YASH MEIER Primary YASH HERMANDOB: [place] Insurance:MEDICAL [id number] Clinic Union Hospital [address]Yox: (330) Number: Repository [phone] () [id number] Date:0639-02-06UIArthur [place] [phone]: 04/01/2018 Secondary NOT GIVENUNK [place] Insurance:SELF PAY [facility] Number: Effective Repository Date:2018-04-01 03/19/2018 YASH MEIER Primary YASH ERAZOB: [place] Insurance:MEDICAL [id number] Clinic Union Hospital [address]Qkk: (330) Number: Repository [phone] () [id number] Date:5957-28-60FX[address] [address]OZ: 03/19/2018 Secondary NOT GIVENUNK [place] Insurance:SELF PAY [facility] Number: Effective Repository Date:2018-03-19 03/09/2018 YASH MEIER Primary YASH ERAZOB: [place] Insurance:MEDICAL [id number] Clinic Union Hospital [address]Bjz: (330) Number: Repository [phone] () [id number] Date:2937-90-64BA [address] [place] [address]CH: 03/09/2018 Secondary NOT GIVENUNK [place] Insurance:SELF PAY [facility] Number: Effective Repository Date:2018-03-09 03/05/2018 YASH HERMAN311 Primary YASH HERMANDOB: [place] Insurance:MEDICAL [id number] Clinic Union Hospital [address]Sca: (330) Number: Repository [phone] () [id number] Date:1270-95-26OT [place] [phone]: 03/05/2018 Secondary NOT GIVENUNK [place] Insurance:SELF PAY [facility] Number: Effective Repository Date:2018-03-05 02/25/2018 YASH CARABALLO1 Primary YASH HERMANDOB: [place] Insurance:MEDICAL [id number] Clinic Union Hospital [address]Jgm: (330) Number: Repository [phone] () [id number] Date:8866-61-52LO [place] [phone]: 02/25/2018 Secondary NOT GIVENUNK [place] Insurance:SELF PAY [facility] Number: Effective Repository Date:2018-02-17 02/25/2018 YASH CARABALLO1 Primary YASH ERAZOB: [place] Insurance:MEDICAL [id number] [facility] [address]Kja: (330) Number: Repository [phone] () [id number] Date:6532-69-14OZ [address] [place], [place] [address]WP: 02/25/2018 Secondary NOT GIVENUNK [place] Insurance:SELF PAY [facility] Number: Effective Repository Date:2018-02-25 02/20/2018 YASH MEIER Primary YASH HERMANDOB: [place] Insurance:MEDICAL [id number] [facility] [address]Lle: (330) Number: Repository [phone] () [id number] Date:7114-40-07CB [place] [id number]: 02/20/2018 Secondary NOT GIVENUNK [place] Insurance:SELF PAY [facility] Number: Effective Repository Date:2018-02-20 02/20/2018 YASH MEIER Primary YASH HERMANDOB: [place] Insurance:MEDICAL [id number] [address]Cwl: (330) Number: Repository [phone] () [id number] Date:3134-73-80JB [place] [phone]: 02/20/2018 Secondary NOT GIVENUNK [place] Insurance:SELF PAY [facility] Number: Effective Repository Date:2018-02-17 02/20/2018 YASH CARABALLO1 Primary YASH HERMANDOB: [place] Insurance:MEDICAL [id number] [facility] [address]Gkw: (330) Number: Repository [phone] () [id number] Date:5158-32-27HQ [place] [id number]: 02/20/2018 Secondary NOT GIVENUNK [place] Insurance:SELF PAY [facility] Number: Effective Repository Date:2018-02-20 2018 YASH CARABALLO1 Primary YASH HERMANDOB: [place] Insurance:MEDICAL [id number] [facility] [address]Uej: (330) Number: Repository [phone] () [id number] Date:1334-27-22XJ [place] [phone]: 2018 Secondary NOT GIVENUNK [place] Insurance:SELF PAY [facility] Number: Effective Repository Date:2018 02/17/2018 YASH [id number] Primary YASH BATSHEVADOB: [place] Insurance:MEDICAL [id number] [facility] [address]Tpp: (330) Number: Repository [phone] () [id number] Date:4693-60-77AD [address] [place], [place] [phone]: 02/17/2018 Secondary NOT GIVENUNK [place] Insurance:SELF PAY [facility] Number: Effective Repository Date:2018-02-17 02/16/2018 YASH CARABALLO1 Primary YASH BATSHEVADOB: [place] Insurance:MEDICAL [id number] [facility] [address]Nuk: (330) Number: Repository [phone] () [id number] Date:7380-08-39FH [place] [phone]: 02/16/2018 Secondary NOT GIVENUNK [place] Insurance:SELF PAY [facility] Number: Effective Repository Date:2018-02-16 02/16/2018 YASH [id number] Primary YASH BATSHEVADOB: [place] Insurance:MEDICAL [id number] [facility] [address]Imf: (330) Number: Repository [phone] () [id number] Date:5734-89-06UA [place] [phone]: 02/16/2018 Secondary NOT GIVENUNK [place] Insurance:SELF PAY [facility] Number: Effective Repository Date:2018-02-09 01/19/2018 YASH [id number] Primary YASH BATSHEVADOB: [place] Insurance:MEDICAL [id number] [facility] [address]Qsd: (330) Number: Repository [phone] () [id number] Date:2929-74-46VN [address] [place], [place] [phone]: 01/19/2018 Secondary NOT GIVENUNK [place] Insurance:SELF PAY [facility] Number: Effective Repository Date:2017-12-08 01/19/2018 YASH CARABALLO1 Primary YASH HERMANDOB: [place] Insurance:MEDICAL [id number] [address]Hdv: (330) Number: Repository [phone] () [id number] Date:3735-29-30UE [place] [phone]: 01/19/2018 Secondary NOT GIVENUNK [place] Insurance:SELF PAY [facility] Number: Effective Repository Date:2018-01-19 01/13/2018 YASH MEIER Primary YASH HERMANDOB: [place] Insurance:MEDICAL [id number] Clinic [facility] Hospital [address]Kjm: (330) Number: Repository [phone] () [id number] Date:6221-49-33AOB[place] [address]WP: 01/13/2018 Secondary NOT GIVENUNK [place] Insurance:SELF PAY [facility] Number: Effective Repository Date:2018-01-13 01/08/2018 YASH CARABALLO1 Primary YASH ERAZOB: [place] Insurance:MEDICAL [id number] Clinic Union Hospital [address]Iio: (330) Number: Repository [phone] () [id number] Date:8349-63-91FTArthur [place] [phone]: 01/08/2018 Secondary NOT GIVENUNK [place] Insurance:SELF PAY [facility] Number: Effective Repository Date:2018-01-06 01/06/2018 Yash Meier Primary Yash ErazoB: [place] Insurance:MEDICAL [id number] [facility] [address]Wzi: (330) Number: Repository [phone] () [id number] Date:8510-77-12QC [address] [place] [phone]: 01/06/2018 Secondary NOT GIVENUNK [place] Insurance:SELF PAY [facility] Number: Effective Repository Date:2017-12-09 01/06/2018 YASH [id number] Primary YASH HERMANDOB: [place] Insurance:MEDICAL [id number] Clinic Union Hospital [address]Upb: (330) Number: Repository [phone] () [id number] Date:0660-04-74SP [address] [place], [place] [phone]: 01/06/2018 Secondary NOT GIVENUNK [place] Insurance:SELF PAY [facility] Number: Effective Repository Date:2018-01-06 01/01/2018 Yash Herman311 Primary Yash BatshevaDOB: [place] Insurance:MEDICAL [id number] Clinic Luther[facility] Hospital [address]Tgc: (330) Number: Repository [phone] () [id number] Date:5338-07-82PL [place] [phone]: 01/01/2018 Secondary NOT GIVENUNK [place] Insurance:SELF PAY [facility] Number: Effective Repository Date:2018-01-01 01/01/2018 Yash Herman311 Primary Yash HermanDOB: [place] Insurance:MEDICAL [id number] [facility] [address]Etr: (330) Number: Repository [phone] () [id number] Date:7628-90-32SZ [address] [place] [phone]: 01/01/2018 Secondary NOT GIVENUNK [place] Insurance:SELF PAY [facility] Number: Effective Repository Date:2018-01-01 12/24/2017 Yash [id number] Primary Yash BatshevaDOB: [place] Insurance:MEDICAL [id number] Clinic Luther[facility] Hospital [address]Vdo: (330) Number: Repository [phone] () [id number] Date:7955-48-00VL [address] [address]KW: 12/24/2017 Secondary NOT GIVENUNK [place] Insurance:SELF PAY [facility] Number: Effective Repository Date:2017-12-16 12/09/2017 Yash Caraballo1 Primary Yash HermanDOB: [place] Insurance:MEDICAL [id number] Clinic [facility] [address]Xok: (330) Number: Repository [phone] () [id number] Date:1748-10-[address] [phone]: 12/09/2017 Secondary NOT GIVENUNK [place] Insurance:SELF PAY [facility] Number: Effective Repository Date:2017-12-09 12/05/2017 Yash Caraballo1 Primary Yash ErazoB: [place] Insurance:MEDICAL [id number] [facility] [address]Sjo: (330) Number: Repository [phone] () [id number] Date:0213-04-99WM [address] [phone]: 12/05/2017 Secondary NOT GIVENUNK [place] Insurance:SELF PAY [facility] Number: Effective Repository Date:2017-12-03
== END ==
PROVIDERS: Family Provider Internal Medicine; PCP Internal Medicine; Referring Provider Physician Assistant Surgical; Visit Provider Physician Assistant Surgical
DX: J02.9 Acute pharyngitis, unspecified (principal)
CPT/HCPCS: 87081

== ENCOUNTER → 2019-06-18 | Outpatient (CLI) | payer OTHER, SELFPAY ==
[2019-06-14 14:18] VITALS: BMI 24.7
[2019-06-18 17:19] LABS: Absolute Lymphocyte Count 2.44 X10^3/uL (0.83-4.51); Absolute Neutrophil Count 3.3 X10^3/uL (2.0-7.7); Basophil# 0.04 X10^3/uL; Basophil% 0.6 % (0-1); Eosinophils% 3.1 % (0-5); Hematocrit 36.9 % (37-47); Lymphocyte # 2.44 X10^3/ul (4.0); Mean Corp Hgb Conc 32.5 g/dL (32-36); Mean Corpuscular Hgb 28.5 pg (27.0-32.0); Mean Corpuscular Volume 87.6 fL (81-99); Mean Platelet Vol. 9.8 fl (6.2-12.0); Monocyte# 0.46 X10^3/uL; Monocyte% 7.2 % (0-10); NRBC Flagged by Analyzer 0 % (0-5); Neutrophil # 3.27 X10^3/uL (2.7-7.7); Neutrophil % 50.9 % (47-70); Platelet Count 306 K/mm3 (150-450); RBC Distribution Width CV 13.8 % (11.6-14.6); RBC Distribution Width SD 44.1 fl (35.1-43.9); Red Blood Count 4.21 M/mm3 (4.2-5.4); White Blood Count 6.4 K/mm3 (4.4-11.0)
[2019-06-18 17:47] LABS: AST(SGOT) 12 U/L (15-37); Alanine Aminotransfer ALT/SGPT 18 U/L (13-56); Albumin, Serum 3.5 g/dL (3.2-5.0); Alkaline Phosphatase 59 U/L (45-117); Anion Gap 6 (5-15); BUN 11 mg/dL (7-18); BUN/Creat Ratio 17.3 RATIO (10-20); Calcium,Total 8.7 mg/dL (8.5-10.1); Chloride 108 mmol/L (98-107); Creatinine, Serum 0.64 mg/dL (0.55-1.02); EST Glomerular Filtration Rate 113 mL/min (>60); Est Glom Filt Rate - Afr Amer 137 mL/min (>60); Globulin 3.5 g/dL (2.2-4.2); Glucose 78 mg/dL (74-106); Potassium 3.9 mmol/L (3.5-5.1); Sodium Level 141 mmol/L (136-145)
[2019-06-18 17:54] LABS: Vitamin D,25 Hydroxy 20.4 ng/mL (29.95-100.01)
== END | disposition home or self-care (01) ==
LOC: MTLAB 15:04
PROVIDERS: Family Provider Internal Medicine; PCP Internal Medicine; Referring Provider Internal Medicine; Visit Provider Internal Medicine
DX: K52.9 Noninfective gastroenteritis and colitis, unspecified (principal); E55.9 Vitamin D deficiency, unspecified
CPT/HCPCS: 36415; 80053; 82306; 85025

== ENCOUNTER → 2019-07-01 | Outpatient (CLI) | payer OTHER, SELFPAY ==
[2019-07-01 11:04] VITALS: BMI 24.7
[2019-07-01 12:49] LABS: Magnesium 2.2 mg/dL (1.6-2.6); T4 Free Direct 1.04 ng/dL (0.76-1.46); Thyroid Stim Hormone (TSH) 1.54 uIU/mL (0.358-3.74)
== END | disposition home or self-care (01) ==
LOC: BIMLAB 11:36
PROVIDERS: Family Provider Internal Medicine; PCP Internal Medicine; Visit Provider Nurse Practitioner Family
DX: R00.1 Bradycardia, unspecified (principal)
CPT/HCPCS: 36415; 83735; 84439; 84443

== ENCOUNTER → 2019-07-02 | Outpatient (CLI) | payer OTHER, SELFPAY ==
[2019-07-01 11:04] VITALS: BMI 24.7
--- NOTE | 2019-07-02 14:01 | EKG12_ITS ---
Test Reason : BRADYCARDIA Blood Pressure : / mmHG Vent. Rate : 067 BPM Atrial Rate : 067 BPM P-R Int : 146 ms QRS Dur : 088 ms QT Int : 412 ms P-R-T Axes : 051 064 044 degrees QTc Int : 435 ms Normal sinus rhythm Normal ECG Confirmed by MARGIE WEIR, YVES ([id number]), social media editor ELMER MONTES ([id number]) on 07/06/2019 10:42:02 AM Referred By: Ramirez Ferris Confirmed By:CHRISTIANA HANSON MD
== END | disposition home or self-care (01) ==
LOC: PSN 13:59
PROVIDERS: Family Provider Internal Medicine; PCP Internal Medicine; Referring Provider Nurse Practitioner Family; Visit Provider Nurse Practitioner Family
DX: R00.1 Bradycardia, unspecified (principal)
CPT/HCPCS: 93005; 93225; 93226

== ENCOUNTER → 2019-07-14 08:50 | Outpatient (CLI) | payer OTHER, SELFPAY ==
[2019-07-01 11:04] VITALS: BMI 24.7
--- NOTE | 2019-07-14 08:51 | ECHOD_ITS ---
Reason For Study: Chest Pain Procedure This was a 2D Doppler, Color Flow transthoracic echocardiogram. Exam performed in department. Left Ventricle Normal LV size. Left ventricular systolic function is normal. The estimated ejection fraction is 55 %. Normal diastology for age. No regional wall motion abnormalities noted. Right Ventricle Normal RV size. Normal systolic function. Atria Normal left atrium. Normal right atrium. Mitral Valve Normal mitral valve. Tricuspid Valve Normal tricuspid valve. Aortic Valve Normal aortic valve. Trisinus/trileaflet aortic valve. Pulmonic Valve Normal pulmonic valve. Great Vessels Normal aortic root. The pulmonary artery is normal size. Normal inferior vena cava. Pericardium/Pleural No pericardial effusion. MMode/2D Measurements & Calculations LVIDd: 4.8 cm IVSd: 0.67 cm Ao root diam: 2.7 cm LVIDs: 3.1 cm LVPWd: 0.56 cm RVDd: 3.5 cm FS: 35.6 % LAV(MOD-bp): 26.5 ml LVAd ap4: 24.6 cm2 SV(MOD-sp4): 43.3 ml LAV(MOD-bp) Indexed: 14.4 ml/m2 EDV(MOD-sp4): 68.2 ml LAV(MOD-sp2): 38.1 ml EDV(sp4-el): 71.3 ml LAV(MOD-sp4): 18.0 ml LVAs ap4: 13.5 cm2 ESV(MOD-sp4): 24.9 ml ESV(sp4-el): 25.3 ml EF(MOD-sp4): 63.5 % EF(sp4-el): 64.6 % SV(sp4-el): 46.1 ml LA A4 area: 9.1 cm2 LA dimension(2D): 3.0 cm RA A4 area: 8.4 cm2 Doppler Measurements & Calculations MV E max dennis: 72.8 cm/sec Lat Peak E' Dennis: 15.7 cm/sec Med Peak E' Dennis: 10.4 cm/sec MV A max dennis: 51.8 cm/sec E/E' lat: 4.6 E/E' med: 7.0 MV E/A: 1.4 Ao V2 max: 110.0 cm/sec LV V1 max: 86.0 cm/sec PA V2 max: 98.4 cm/sec Ao max P.8 mmHg LV V1 max P.0 mmHg Ao V2 mean: 81.6 cm/sec Ao mean P.9 mmHg Ao V2 VTI: 24.6 cm TR max dennis: 218.4 cm/sec TR max P.1 mmHg Interpretation Summary Normal LV size. Left ventricular systolic function is normal. The estimated ejection fraction is 55 %. Structurally normal valves. Ordering Physician: Ramirez Ferris Referring Physician: Diogo Bowen Performed By: Kelsie Leiva RDCS, RVT
== END ==
PROVIDERS: Family Provider Internal Medicine; PCP Internal Medicine; Referring Provider Nurse Practitioner Family; Visit Provider Nurse Practitioner Family
DX: R07.9 Chest pain, unspecified (principal); R00.1 Bradycardia, unspecified
CPT/HCPCS: 93306

== ENCOUNTER → 2019-07-15 11:27 | Outpatient (CLI) | payer OTHER, SELFPAY ==
[2019-07-01 11:04] VITALS: BMI 24.7
--- NOTE | 2019-07-16 15:49 | STRESSREP_ITS ---
Stress Test Report Date: 07/15/2019 Procedure: Exercise tolerance test Indications: Chest pain Consent: Per the patient Procedure: The patient exercised on a Ronald protocol for 9 minutes achieving a peak heart rate of 169 bpm (91 % predicted maximal heart rate) with a peak blood pressure 154/78 mmHg and a peak MET capacity of approximately 10.1 mET's. The baseline ECG demonstrated normal sinus rhythm, no significant ST-T changes. The peak exercise ECG demonstrated sinus tachycardia with about [address] depression in the lateral leads. [There were no cardiac dysrhythmias pretest, during exercise, or recovery]. The functional capacity was considered normal for age. The patient had no complaint of chest discomfort during exercise or recovery. The examination was discontinued secondary to dyspnea. Impression: 1. Technically adequate (percent predicted maximal heart rate greater than 85%) exercise tolerance test 2. Treadmill stress test was negative for exercise-induced chest pain or EKG changes of ischemia. 3. [There were no cardiac dysrhythmias during exercise or recovery] This note was generated with [employer] software. It may contain incorrect words, spelling, and punctuation that were not noted in checking the note before signing.
== END ==
PROVIDERS: Family Provider Internal Medicine; PCP Internal Medicine; Referring Provider Nurse Practitioner Family; Visit Provider Nurse Practitioner Family
DX: R00.1 Bradycardia, unspecified (principal); R07.9 Chest pain, unspecified
CPT/HCPCS: 93017

== ENCOUNTER → 2019-12-17 13:53 | Outpatient (CLI) | payer OTHER, SELFPAY ==
[2019-12-13 15:59] VITALS: BMI 24.5
--- NOTE | 2019-12-17 13:56 | US_ITS ---
STUDY: RENAL ULTRASOUND - COMPLETE REASON FOR EXAM: Female, 34 years old. RT FLANK PAIN X 6 WEEKS -- HX OF KIDNEY STONES -- HX OF LITHOTRIPSY 2017 TECHNIQUE: Ultrasound evaluation of the kidneys was performed with real-time and static lopez-scale imaging. COMPARISON: report of prior study of December 05, 2017 FINDINGS: RIGHT KIDNEY: Normal location of the right kidney, which is normal in size. The right kidney measures 12.7 x 5.0 x 4.0 cm. There is a normal cortex of the right kidney. The renal cortex measures 1.3 cm. There is no right renal mass or cyst. There is a 3 mm echogenic focus of the right kidney. This does not demonstrate acoustical shadowing and may not represent a calculus. There is a slightly prominent right renal pelvis with no overt hydronephrosis. DISTAL RIGHT URETER: There is non-visualization of the distal right ureter. There is no demonstrated right ureterovesical junction calculus. There is a visualized right ureteral jet. LEFT KIDNEY: Normal location of the left kidney, which is normal in size. The left kidney measures 11.7 x 4.5 x 5.7 cm. There is a normal cortex of the left kidney. The renal cortex measures 1.7 cm. There is no left renal mass or cyst. There is a 4 mm echogenic focus of the left kidney. This also does not demonstrate posterior acoustical shadowing and may not represent a calculus. There is no left hydronephrosis. DISTAL LEFT URETER: There is non-visualization of the distal left ureter. There is no demonstrated left ureterovesical junction calculus. There is a visualized left ureteral jet. BLADDER: The distended urinary bladder has a volume of 345 ml. There is a normal wall thickness of the distended urinary bladder. There is no demonstrated mass within the urinary bladder. There are no demonstrated bladder calculi. US/Kidney and Bladder IMPRESSION: Small echogenic foci of the left and right kidneys which may not represent calculi. There is a slightly prominent right renal pelvis. If clinically indicated, CT of the abdomen and pelvis without contrast would be helpful for further evaluation. There is incidentally noted a 2.6 cm right ovarian cyst. Electronically Signed: Amado Rowe MD at 19:19 EST , Service support ,
[2019-12-17 15:41] LABS: Absolute Lymphocyte Count 2.26 X10^3/uL (0.83-4.51); Absolute Neutrophil Count 4.3 X10^3/uL (2.0-7.7); Basophil# 0.05 X10^3/uL; Basophil% 0.7 % (0-1); Eosinophil# 0.26 X10^3/uL; Eosinophils% 3.4 % (0-5); Hematocrit 40.4 % (37-47); Hemoglobin 13.1 g/dL (12.0-15.0); Lymphocyte # 2.26 X10^3/ul (4.0); Lymphocyte % 29.8 % (19-41); Mean Corp Hgb Conc 32.4 g/dL (32-36); Mean Corpuscular Hgb 28.4 pg (27.0-32.0); Mean Corpuscular Volume 87.6 fL (81-99); Mean Platelet Vol. 9.4 fl (6.2-12.0); Monocyte# 0.71 X10^3/uL; Monocyte% 9.4 % (0-10); NRBC Flagged by Analyzer 0 % (0-5); Neutrophil # 4.28 X10^3/uL (2.7-7.7); Neutrophil % 56.4 % (47-70); Platelet Count 348 K/mm3 (150-450); RBC Distribution Width CV 13.2 % (11.6-14.6); RBC Distribution Width SD 42.8 fl (35.1-43.9); Red Blood Count 4.61 M/mm3 (4.2-5.4); White Blood Count 7.6 K/mm3 (4.4-11.0)
[2019-12-17 16:14] LABS: AST(SGOT) 13 U/L (15-37); Alanine Aminotransfer ALT/SGPT 21 U/L (13-56); Albumin, Serum 4.2 g/dL (3.2-5.0); Alkaline Phosphatase 70 U/L (45-117); Anion Gap 4 (5-15); BUN 9 mg/dL (7-18); BUN/Creat Ratio 12.9 RATIO (10-20); Calcium,Total 8.9 mg/dL (8.5-10.1); Chloride 107 mmol/L (98-107); EST Glomerular Filtration Rate 101 mL/min (>60); Est Glom Filt Rate - Afr Amer 122 mL/min (>60); Globulin 4.1 g/dL (2.2-4.2); Glucose 75 mg/dL (74-106); Potassium 3.5 mmol/L (3.5-5.1); Protein, Total 8.3 g/dL (6.4-8.2); Sodium Level 138 mmol/L (136-145)
== END ==
PROVIDERS: PCP Internal Medicine; Referring Provider Urology; Visit Provider Urology
DX: R10.9 Unspecified abdominal pain (principal); M54.9 Dorsalgia, unspecified
CPT/HCPCS: 36415; 76770; 80053; 85025

== ENCOUNTER → 2019-12-30 17:52 | Outpatient (CLI) | payer OTHER, SELFPAY ==
[2019-12-13 15:59] VITALS: BMI 24.5
--- NOTE | 2019-12-30 17:56 | CT_ITS ---
STUDY: CT ABDOMEN AND PELVIS WITHOUT CONTRAST REASON FOR EXAM: Female, 34 years old. KIDNEY STONES. RIGHT FLANK PAIN. RADIATION DOSAGE (If Supplied By Facility): CTDIvol = ( 10.18 ) mGy, DLP = ( 485.70 ) mGycm TECHNIQUE: Transaxial images were obtained from the dome of the diaphragm to the symphysis pubis without oral contrast, and without intravenous contrast. Sagittal and coronal images were reconstructed. Individualized dose optimization techniques were used for this CT. COMPARISON: January 06, 2018 FINDINGS: The visualized lung bases are unremarkable. The visualized portions of the heart are within normal limits. Normal liver. Nonvisualization of the gallbladder. No significant dilatation of the extrahepatic biliary system. Normal spleen. Normal pancreas. Normal bilateral adrenal glands. Normal right kidney. Normal left kidney. Normal visualized stomach. Normal small intestine. Normal colon. The appendix is visualized and appears normal. Normal abdominal aorta. Normal inferior vena cava. Normal retroperitoneum. Normal urinary bladder. Mild endometrial thickening in the uterus. Normal abdominal wall. Normal osseous structures. CT/Abdomen/Pelvis without Cont IMPRESSION: No renal stones or hydronephrosis. Mild endometrial thickening. Electronically Signed: John Enriquez DO at 23:49 EST Tel [phone], Service support ,
== END ==
PROVIDERS: PCP Internal Medicine; Referring Provider Urology; Visit Provider Urology
DX: N13.30 Unspecified hydronephrosis (principal); R10.9 Unspecified abdominal pain; Z87.442 Personal history of urinary calculi
CPT/HCPCS: 74176

== ENCOUNTER → 2020-08-08 15:30 | Outpatient (CLI) | payer OTHER, SELFPAY ==
[2020-08-08 14:59] VITALS: BMI 24.5
[2020-08-08 18:09] LABS: ALB/GLOB Ratio 0.9 RATIO (0.9-2.4); AST(SGOT) 14 U/L (15-37); Alanine Aminotransfer ALT/SGPT 20 U/L (13-56); Albumin, Serum 3.7 g/dL (3.2-5.0); Alkaline Phosphatase 64 U/L (45-117); Anion Gap 4 (5-15); BUN 9 mg/dL (7-18); BUN/Creat Ratio 13.4 RATIO (10-20); Calcium,Total 8.7 mg/dL (8.5-10.1); Chloride 105 mmol/L (98-107); Creatinine, Serum 0.67 mg/dL (0.55-1.02); EST Glomerular Filtration Rate 106 mL/min (>60); Est Glom Filt Rate - Afr Amer 128 mL/min (>60); Globulin 3.9 g/dL (2.2-4.2); Glucose 109 mg/dL (74-106); Potassium 3.7 mmol/L (3.5-5.1); Protein, Total 7.6 g/dL (6.4-8.2); Sodium Level 138 mmol/L (136-145)
[2020-08-10 15:26] LABS: Lyme AB/Total Immuno < 0.91 ISR (0.00-0.90)
== END ==
PROVIDERS: PCP Internal Medicine; Referring Provider Internal Medicine; Visit Provider Internal Medicine
DX: R10.11 Right upper quadrant pain (principal); R68.89 Other general symptoms and signs
CPT/HCPCS: 36415; 80053; 86618

== ENCOUNTER → 2020-08-14 08:54 | Outpatient (CLI) | payer OTHER, SELFPAY ==
[2020-08-08 14:59] VITALS: BMI 24.5
--- NOTE | 2020-08-14 08:55 | US_ITS ---
HISTORY: RUQ PAIN X 2-3 WEEKS, HX OF CHOLECYSTECTOMY COMPARISON: CT 12/30/2019. Renal ultrasound 12/17/2019 TECHNIQUE: Sonographic images of the right upper quadrant of the abdomen using grayscale and color Doppler imaging. Number of images including paperwork: 104 FINDINGS: LIVER: Unremarkable. Right lobe measures 16.5 cm. GALLBLADDER: Surgically absent. BILE DUCTS: No significant biliary dilatation. CBD 3 mm. PANCREAS: Unremarkable visualized pancreas. Tail partially obscured by bowel gas. RIGHT KIDNEY: Unremarkable, 12.5 cm. Extrarenal pelvis noted, similar to previous ultrasound. INFERIOR VENA CAVA: Unremarkable visualized portions of the inferior vena cava. FREE FLUID: None detected. US/Abdomen Limited IMPRESSION: No acute abdominal abnormality is sonographically apparent. at 0128 Reported and signed by: Dilia Ramirez MD Electronically Signed: Dilia Ramirez MD at 1:28 EDT Tel , Service support ,
== END ==
PROVIDERS: PCP Internal Medicine; Referring Provider Internal Medicine; Visit Provider Internal Medicine
DX: R10.11 Right upper quadrant pain (principal)
CPT/HCPCS: 76705

== ENCOUNTER → 2021-07-03 16:06 | Outpatient (CLI) | payer OTHER, SELFPAY ==
--- NOTE | 2021-07-03 16:09 | RAD_ITS ---
INDICATION: PAIN EXAMINATION/TECHNIQUE: X-RAY - XR Pelvis 1 or 2 Views COMPARISON: None. FINDINGS: PELVIC BONES: No displaced fracture, destructive or sclerotic lesions. Note that overlapping bowel shadows may however obscure fine detail. Sacroiliac joints are unremarkable. No widening of the pubic symphysis. HIPS: The articular structures are unremarkable. No displaced fracture seen in this frontal view. SOFT TISSUES: No soft tissue swelling or gas. RAD/Pelvis 1 or 2 Views IMPRESSION: No evidence of displaced pelvic or hip fracture. Electronically Signed: Lebron Ta MD at 12:55 EDT Tel , Service support ,
[2021-07-03 17:46] LABS: Absolute Lymphocyte Count 2.14 X10^3/uL (0.83-4.51); Absolute Neutrophil Count 5.3 X10^3/uL (2.0-7.7); Basophil# 0.05 X10^3/uL; Basophil% 0.6 % (0-1); Eosinophil# 0.17 X10^3/uL; Hematocrit 38.2 % (37-47); Hemoglobin 12.4 g/dL (12.0-15.0); Lymphocyte # 2.14 X10^3/ul (0.83-4.51); Lymphocyte % 25.7 % (19-41); Mean Corp Hgb Conc 32.5 g/dL (32-36); Mean Corpuscular Hgb 28.2 pg (27.0-32.0); Mean Corpuscular Volume 86.8 fL (81-99); Mean Platelet Vol. 9.4 fl (6.2-12.0); Monocyte# 0.67 X10^3/uL; NRBC Flagged by Analyzer 0 % (0-5); Neutrophil # 5.28 X10^3/uL (2.7-7.7); Neutrophil % 63.5 % (47-70); Platelet Count 407 K/mm3 (150-450); RBC Distribution Width CV 13.7 % (11.6-14.6); RBC Distribution Width SD 43.6 fl (35.1-43.9); White Blood Count 8.3 K/mm3 (4.4-11.0)
[2021-07-03 18:14] LABS: AST(SGOT) 12 U/L (15-37); Alanine Aminotransfer ALT/SGPT 23 U/L (13-56); Albumin, Serum 3.9 g/dL (3.2-5.0); Alkaline Phosphatase 80 U/L (45-117); Anion Gap 7 (5-15); BUN 11 mg/dL (7-18); BUN/Creat Ratio 19.5 RATIO (10-20); Calcium,Total 9.2 mg/dL (8.5-10.1); Chloride 104 mmol/L (98-107); Creatinine, Serum 0.56 mg/dL (0.55-1.02); EST Glomerular Filtration Rate 128 mL/min (>60); Est Glom Filt Rate - Afr Amer 155 mL/min (>60); Globulin 3.9 g/dL (2.2-4.2); Glucose 81 mg/dL (74-106); Potassium 3.5 mmol/L (3.5-5.1); Protein, Total 7.8 g/dL (6.4-8.2); Sodium Level 137 mmol/L (136-145)
[2021-07-04 09:54] LABS: Hepatitis B Surface Antibody Non-Reactive; Hepatitis B Surface Antigen Non-Reactive (Nonreactive); Hepatitis C Antibody Non-Reactive (Nonreactive)
[2021-07-12 20:43] LABS: CCP IgG Antibodies 8 units (0-19); HLA B27 Negative (.)
== END ==
PROVIDERS: PCP Internal Medicine; Referring Provider Internal Medicine Rheumatology; Visit Provider Internal Medicine Rheumatology
DX: M06.4 Inflammatory polyarthropathy (principal); M79.7 Fibromyalgia; K52.9 Noninfective gastroenteritis and colitis, unspecified; L70.0 Acne vulgaris
CPT/HCPCS: 36415; 72170; 80053; 81374; 85025; 86200; 86431; 86706; 86803; 87340

== ENCOUNTER → 2024-01-15 | Outpatient (CLI) | payer OTHER, SELFPAY ==
[2024-01-15 17:46] LABS: Absolute Lymphocyte Count 1.97 X10^3/uL (0.83-4.51); Absolute Neutrophil Count 4.4 X10^3/uL (2.0-7.7); Basophil# 0.04 X10^3/uL; Basophil% 0.5 % (0-1); Eosinophil# 0.23 X10^3/uL; Eosinophils% 3.1 % (0-5); Hematocrit 37.7 % (37-47); Hemoglobin 12.4 g/dL (12.0-15.0); Lymphocyte # 1.97 X10^3/ul (0.83-4.51); Lymphocyte % 26.8 % (19-41); Mean Corp Hgb Conc 32.9 g/dL (32-36); Mean Corpuscular Hgb 28.6 pg (27.0-32.0); Mean Corpuscular Volume 87.1 fL (81-99); Mean Platelet Vol. 8.9 fl (6.2-12.0); Monocyte# 0.66 X10^3/uL; NRBC Flagged by Analyzer 0 % (0-5); Neutrophil # 4.44 X10^3/uL (2.7-7.7); Neutrophil % 60.5 % (47-70); Platelet Count 417 K/mm3 (150-450); RBC Distribution Width CV 14.1 % (11.6-14.6); RBC Distribution Width SD 44.4 fl (35.1-43.9); Red Blood Count 4.33 M/mm3 (4.2-5.4); White Blood Count 7.4 K/mm3 (4.4-11.0)
[2024-01-15 18:14] LABS: Vitamin B12 330 pg/mL (211-911); Vitamin D,25 Hydroxy 34.4 ng/mL
[2024-01-15 18:27] LABS: ALB/GLOB Ratio 0.9 RATIO (0.9-2.4); AST(SGOT) 12 U/L (15-37); Alanine Aminotransfer ALT/SGPT 19 U/L (13-56); Albumin, Serum 3.7 g/dL (3.2-5.0); Alkaline Phosphatase 78 U/L (45-117); Anion Gap 8 (5-15); BUN 14 mg/dL (7-18); Calcium,Total 9.3 mg/dL (8.5-10.1); Chloride 105 mmol/L (98-107); Creatinine, Serum 0.67 mg/dL (0.55-1.02); EST Glomerular Filtration Rate 104 mL/min (>60); Est Glom Filt Rate - Afr Amer 126 mL/min (>60); Free T3 2.2 pg/mL (2.18-3.98); Globulin 4.3 g/dL (2.2-4.2); Glucose 77 mg/dL (74-106); Iron 43 ug/dL (50-170); Iron Binding Capacity,Total 421 ug/dL (250-450); PERCENT IRON SATURATION 10.2 % (15.0-55.0); Potassium 3.7 mmol/L (3.5-5.1); Sodium Level 138 mmol/L (136-145); T4 Free Direct 0.69 ng/dL (0.76-1.46); Thyroid Stim Hormone (TSH) 1.94 uIU/mL (0.358-3.74)
[2024-01-17 04:08] LABS: Thyroid Peroxidase AB 11 IU/mL (0-34)
[2024-01-19 13:08] LABS: Anti-Nuclear Antibody Test Negative (.)
[2024-01-19 15:41] LABS: Ferritin 24 ng/mL (8-252)
== END | disposition home or self-care (01) ==
LOC: MTLAB 15:38
PROVIDERS: PCP Student in an Organized Health Care Education/Training Program; Referring Provider Physician Assistant Medical; Visit Provider Physician Assistant Medical
DX: L70.0 Acne vulgaris (principal); R53.83 Other fatigue; K12.0 Recurrent oral aphthae; G47.33 Obstructive sleep apnea (adult) (pediatric); M79.7 Fibromyalgia; E66.09 Other obesity due to excess calories; Z68.30 Body mass index [BMI] 30.0-30.9, adult; G25.81 Restless legs syndrome; E61.1 Iron deficiency
CPT/HCPCS: 36415; 80053; 82306; 82607; 82728; 83540; 83550; 84439; 84443; 84481; 85025; 86038; 86376

== ENCOUNTER → 2024-09-07 | Outpatient (CLI) | payer OTHER, SELFPAY ==
--- NOTE | 2024-09-07 15:41 | RAD_ITS ---
EXAM: XR CHEST, 2 VIEWS CLINICAL INDICATION: cough TECHNIQUE: Frontal and lateral views of the chest. COMPARISON: XR Chest dated 01/06/2018 FINDINGS: LUNGS AND PLEURAL SPACES: Normal. No consolidation or edema. No pneumothorax. No effusion. HEART: Normal heart size. MEDIASTINUM: No mediastinal or hilar mass. BONES/JOINTS: No acute abnormality. RAD/Chest PA and Lateral IMPRESSION: No acute cardiopulmonary abnormality. No interval change. Electronically Signed: Rigoberto Carney MD at 16:26 EST ,
== END | disposition home or self-care (01) ==
LOC: MTRAD 15:41
PROVIDERS: PCP Student in an Organized Health Care Education/Training Program; Referring Provider Physician Assistant; Visit Provider Physician Assistant
DX: R05.9 Cough, unspecified (principal); R53.83 Other fatigue; R06.02 Shortness of breath
CPT/HCPCS: 71046